=== PATIENT | female | born 1960 | race Hispanic/Latino ===

== ENCOUNTER 2018-12-12 08:01 | Day surgery (SDC) | payer OTHER ==
--- OUTSIDE RECORDS SUMMARY | 2018-12-12 08:03 | XMS REPORT ---
:1960 Author Organization [employer] Care Team Providers Name Role Phone Mota, Na Provider Role Unavailable Allergies No Known Allergies Problems Problem Type Condition Code Onset Dates Condition Status Problem Chronic obstructive pulmonary J44.9 Active disease, unspecified COPD type Problem Type 2 diabetes mellitus with E11.65 Active hyperglycemia Problem Type 2 diabetes mellitus with E11.8 Active unspecified complications Problem Uncontrolled type 2 diabetes E11.65 Active mellitus with hyperglycemia Problem Controlled type 2 diabetes mellitus E11.8 Active with complication, without long-term current use of insulin Problem Cigarette nicotine dependence with F17.219 Active nicotine-induced disorder Problem Diabetes E11.9 Active Problem Anxiety F41.9 Active Problem Allergic rhinitis J30.9 Active Problem Other chronic pain G89.29 Active Problem Sinus problem J34.9 Active Problem Asthma J45.909 Active Problem Depression F32.9 Active Medications No Known Medications Results No Known Results Summary Purpose eClinicalWorks Submission
--- OUTSIDE RECORDS SUMMARY | 2018-12-12 08:03 | XMS REPORT ---
:1960 [facility] Address [address] [place] [address] Dr. Carrillo [address] [place] [id number] Care Team Providers Name Role Phone Unavailable Unavailable Unavailable Problems This patient has no known problems. Allergies, Adverse Reactions, Alerts This patient has no known allergies or adverse reactions. Medications This patient has no known medications.
[2018-12-12] MEDS ORDERED: NA CHLORIDE 0.9% 1,000 ML ONE (08:20)
[2018-12-12] MEDS ORDERED: PROPOFOL 200 MG/20 ML VIAL IV ONE (08:45)
[2018-12-12] MEDS ORDERED: LIDOCAINE 1% MPF 5 ML VIAL ONE (08:45)
--- NOTE | 2018-12-13 01:08 | OP ---
Surgeon: Watson Lee MD Procedure Performed: Colonoscopy. Indication For Procedure: Screening, also remote history of hematochezia. Plan For Anesthesia: Monitored anesthesia care. Complexity: Average. Technique: After obtaining informed consent from the patient, explaining risks and complications whi ch include but are not limited to bleeding, infection, perforation and anesthesia complication, the p atient was placed in the left lateral position and sedation was given. From then on, a digital recta l exam was performed and then the scope inserted into the rectum and carefully guided up till the ter misty ileum. Subsequently, the scope was slowly withdrawn while carefully examining the mucosa. The quality of prep according to [place] prep score was 2 + 2 + 2, equal to 6/9. Scope withdrawal time w as 10 minutes. Findings: Few small diverticula were seen in the sigmoid. In the rectum, a diminutive sessile polyp was seen. This was removed by cold forceps. Retroflexion revealed grade 1 internal hemorrhoid. Complications: None. Tolerance To Anesthesia: Excellent. Postoperative Diagnosis: Diverticulosis, polyp. Plan: 1.Await pathology results. 2.Follow up in the GI clinic in 2 weeks. 3.High-fiber diet. 4.Repeat colonoscopy in 3-5 years based on pathology. US/MODL Voice ID: [id number] Report ID: [id number]
== END 2018-12-12 10:08 | disposition home or self-care (01) ==
LOC: OR 08:01
PROVIDERS: ATTEND Internal Medicine Gastroenterology
PROC: 0DBP8ZX Excision of Rectum, Via Natural or Artificial Opening Endoscopic, Diagnostic (ICD-10-PCS; principal; 2018-12-12 09:00)
DX: Z12.11 Encounter for screening for malignant neoplasm of colon (principal); K62.1 Rectal polyp; K57.30 Diverticulosis of large intestine without perforation or abscess without bleeding; K64.0 First degree hemorrhoids; E11.9 Type 2 diabetes mellitus without complications; F17.210 Nicotine dependence, cigarettes, uncomplicated; Z79.84 Long term (current) use of oral hypoglycemic drugs
CPT/HCPCS: 82962; 88305; J2704; J7030

== ENCOUNTER 2019-04-29 07:10 | Day surgery (SDC) | payer OTHER ==
--- OUTSIDE RECORDS SUMMARY | 2019-04-29 07:13 | XMS REPORT ---
:1960 [facility] Address [address] [place] [address] Dr. Carrillo [address] [place] [address] Care Team Providers Name Role Phone Unavailable Unavailable Unavailable Problems This patient has no known problems. Allergies, Adverse Reactions, Alerts This patient has no known allergies or adverse reactions. Medications This patient has no known medications.
--- OUTSIDE RECORDS SUMMARY | 2019-04-29 07:14 | XMS REPORT ---
:1960 Author Organization [employer] Care Team Providers Name Role Phone Mota, Na Provider Role Unavailable Allergies, Adverse Reactions, Alerts Substance Reaction Event Type N.K.D.A. Info Not Available Non Drug Allergy Problems Problem Type Condition Code Onset Dates Condition Status Problem Chronic obstructive pulmonary J44.9 Active disease, unspecified COPD type Problem Type 2 diabetes mellitus with E11.65 Active hyperglycemia Problem Type 2 diabetes mellitus with E11.8 Active unspecified complications Problem Diabetes E11.9 Active Assessment Other chronic pain G89.29 Active Problem Anxiety F41.9 Active Assessment Cigarette nicotine dependence with F17.219 Active nicotine-induced disorder Assessment Chronic obstructive pulmonary J44.9 Active disease, unspecified COPD type Problem Allergic rhinitis J30.9 Active Problem Other chronic pain G89.29 Active Problem Sinus problem J34.9 Active Problem Asthma J45.909 Active Problem Depression F32.9 Active Assessment Chest pain, unspecified type R07.9 Active Assessment Anxiety F41.9 Active Assessment Blood tests for routine general Z00.00 Active physical examination Assessment Low back pain M54.5 Active Problem Uncontrolled type 2 diabetes E11.65 Active mellitus with hyperglycemia Assessment Depression F32.9 Active Problem Controlled type 2 diabetes mellitus E11.8 Active with complication, without long-term current use of insulin Assessment Uncontrolled type 2 diabetes E11.65 Active mellitus with hyperglycemia Problem Cigarette nicotine dependence with F17.219 Active nicotine-induced disorder Medications Medication Code Code Instructions Start End Status Dosage System Date Date ProAir HFA ND [id number] 108 (90 Base) Nov 22, Active 2 puffs as MCG/ACT 2019 needed Inhalation every 6 hrs FreeStyle NDC 24669359010 - sc every 14 Nov 22, Active as directed Anthony Sensor days 2019 System FreeStyle NDC 59794107172 - SC daily Nov 22, Active as directed Anthony [place] 2019 Metformin HCl NDC 79294790345 1000 MG Orally Nov 22, Active 1 tablet Twice a day 2018 with meals Duloxetine HCl NDC 20749876394 30 MG Orally Nov 22, Active 1 capsule Once a day 2018 [facility] 80090541420 62.5 MCG/INH Nov 22, Active 1 puff Ellipta Inhalation Once 2018 a day Results No Known Results Summary Purpose eClinicalWorks Submission
[2019-04-29] MEDS ORDERED: NA CHLORIDE 0.9% 1,000 ML ONE (07:34)
[2019-04-29] MEDS ORDERED: PROPOFOL 200 MG/20 ML VIAL IV ONE ×2 (08:55→08:56)
[2019-04-29] MEDS ORDERED: LIDOCAINE 1% MPF 5 ML VIAL ONE (08:56)
--- NOTE | 2019-04-29 19:50 | OP ---
Surgeon: Watson Lee MD Procedure To Be Performed: Esophagogastroduodenoscopy. Performing Physician: Wtason Lee MD. Indication For Procedure: Dyspepsia, GERD. Plan For Anesthesia: Monitored anesthesia care. Complexity: Average. Technique: After obtaining informed consent from the patient and explaining risks and complications which include but are not limited to bleeding, infection, perforation, and anesthesia complication, p atient was placed in left lateral position and sedation was given. From then on, the scope was advan shalini to the mouth and carefully guided up until the second portion of the duodenum. After the complet ion of the procedures, the equipment and scope withdrawn and procedure terminated in a safe manner. Findings: Esophagus: No gross lesion seen in the entire esophagus. The GE junction was at 38 cm. No evidence of erosive esophagitis or hiatal hernia was seen on this exam. Stomach: Moderate amount of solid food, retained food bezoar was seen in the body and fundus. This precluded visualization of significant portion of the stomach. The antrum was well visualized though , so mild patchy erythema seen, biopsies taken. Duodenum, the bulb and second portion appeared valentina l. Complications: None. Tolerance To Anesthesia: Excellent. Postoperative Diagnoses: Gastritis, gastric retention, probably indicating gastroparesis given her d iabetes. Plan: 1.Await pathology results. 2.Oral PPI once a day. 3.Low-fiber, low residue diet, multiple frequent meals rather than large infrequent meals. 4.Gastric control of diabetes. 5.Follow up in the GI Clinic in 2 weeks. US/MODL Voice ID: [id number] Report ID: [id number]
== END 2019-04-29 09:30 | disposition home or self-care (01) ==
LOC: OR 07:10
PROVIDERS: ATTEND Internal Medicine Gastroenterology
PROC: 0DB68ZX Excision of Stomach, Via Natural or Artificial Opening Endoscopic, Diagnostic (ICD-10-PCS; principal; 2019-04-29 08:30)
DX: K29.50 Unspecified chronic gastritis without bleeding (principal); B96.81 Helicobacter pylori [H. pylori] as the cause of diseases classified elsewhere; K31.89 Other diseases of stomach and duodenum; K21.9 Gastro-esophageal reflux disease without esophagitis; E11.9 Type 2 diabetes mellitus without complications; F17.210 Nicotine dependence, cigarettes, uncomplicated; Z79.84 Long term (current) use of oral hypoglycemic drugs
CPT/HCPCS: 82962; 88305; 88312; J2704; J7030

== ENCOUNTER 2025-03-24 12:24 | Emergency (ER) | payer OTHER ==
--- OUTSIDE RECORDS SUMMARY | 2025-03-24 12:34 | XMS REPORT | Continuity of Care Document ---
Author Name Unknown Address [address] [facility] [place] [address] [facility] Address [address] [facility] [place] [address] Care Team Providers Care [employer] Design Layout Drafter Name Role Phone PCP, PATIENT DOES NOT HAVE A Primary Care Physic sherry Unavailable AMARI NORRIS Attending Clinician Unavailable AMARI NORRIS Attending Clinician Unavailable Juju Lopez Attending Clinician [phone] DEMI DE LA TORRE Attending Clinician Unavailab DEMI Matias Attending Clinician Unavailab Demi Matias DO Attending Clinician [phone] Campaigns, Generic Provider Attending Clinician Unavailable TOI CRAIG Attending Clinician Unavailable TOI CRAIG Attending Clinician Unavailable Yarima MD, [place] S Attending Clinician [phone] Florian Timmons S Attending Clinician Unavailab Lm Mccormick Attending Clinician Unavailable JEREMY RAM Attending Clinician Unavailable Emily Montgomery CNP Attending Clinician [phone] Leanna HUNTER, Jeremy Attending Clinician [phone] Shameka Montenegro RN Attending Clinician DANE Alanis Attending Clinician Unavailable DANE MONTES DE OCA Attending Clinician Unavailable Chelsea Rosario MD Attending Clinician + Victor Manuel Marquis MD Attending Clinician [phone] Dane Montes De Oca MD Attending Clinician [phone] Ramon, Generic Provider Attending Clinician Unavailable ERICA JASSO Attending Clinician Unavailable VAMSI MURPHYVIKTORIA Attending Clinician Emily vailable BOBBY PETTY Attending Clinician Unavailab BOBBY Spivey Attending Clinician Unavailab Kush Ventura Attending Clinician Emily vailable WALDEMAR LEE Attending Clinician Unavailable CARLITOS JEFFRIES Attending Clinician Unavailable Carlitos Jeffries MD Attending Clinician [phone] CARLITOS_Reagan_Asim_ Attending Clinician Unavail able Chelsea Rosario MD Attending Clinician + Cyndee Mahoney MD Attending Clinician [phone] Kelsey Storey Attending Clinician [phone] Ila MCCARTHY Attending Clinician Unavailable Ila Jimenez Attending Clinician [phone] TREY MATTHEW Attending Clinician Unavailable Trey Matthew DO Attending Clinician [phone] Doctor Unassigned, [place] Attending Clinician AMARI Jaimes Admitting Clinician Unavailable DEMI DE LA TORRE Admitting Clinician Unavailab TOI Toribio Admitting Clinician Unavailable Belen Zarate Admitting Clinician Unavailable Juju Weems Admitting Clinician Unavailab JEREMY Kendall Admitting Clinician Unavailable Jeremy Ram MD Admitting Clinician [phone] VICTOR MANUEL MARQUIS Admitting Clinician Unavailable Victor Manuel Marquis MD Admitting Clinician [phone] BOBBY PETTY Admitting Clinician Unavailab WALDEMAR Parikh Admitting Clinician Unavailable CARLITOS JEFFRIES Admitting Clinician Unavailable Carlitos Jeffries MD Admitting Clinician CARLITOS_Reagan_Asim_ Admitting Clinician Unavail able CYNDEE MAHONEY Admitting Clinician Unavailable Cyndee Mahoney MD Admitting Clinician [phone] TREY MATTHEW Admitting Clinician Unavailable Payers Payer Name Policy Type Policy Number Effective Date Expirati on Date Source [facility] [employer] [id number] 2023 00:00:00 [employer] [facility] [id number] Problems Condition Name Condition Details Condition Category Status Onset Date Resolution Date Last Treatment Date Treating Clinician Comments Source COPD (chronic obstructiv e pulmonary disease) COPD (chronic obstructiv e pulmonary disease) Disease Active 2023-11 00:00: 00 [facility] acute hospital Troponin I above reference range Troponin I above reference range Disease Active 2023-11 0 00:00: 00 [facility] acute hospital Cigarette smoker Cigarette smoker Disease Active 2023-11 00:00: 00 [facility] acute hospital Elevated brain natriureti c peptide (BNP) level Elevated brain natriureti c peptide (BNP) level Disease Active 2023-11 0- 00:00: 00 General acute hospital NSTEMI (non-ST elevated myocardial infarction ) NSTEMI (non-ST elevated myocardial infarction ) Disease Active 2023-11 0 00:00: 00 General acute hospital LEG PAIN-RIGHT LEG PAIN-RIGHT Active 04/28/2024 [facility] Diagnosis Active 04-28 00:00: 00 2024-05-19 09:51:00 Asher Hernández Chest pain, unspecifie d type Chest pain, unspecifie d type Disease Active - 00:00: 00 [facility] acute hospital Chest pain Chest pain Disease Active 07-06 00:00: 00 [facility] acute hospital MENJIVAR (dyspnea on exertion) MENJIVAR (dyspnea on exertion) Disease Active 07-06 00:00: 00 [facility] Essential hypertensi on Essential hypertensi on Disease Active 07-06 00:00: 00 [facility] Type 2 diabetes mellitus with other specified complicati on Type 2 diabetes mellitus with other specified complicati on Disease Active 07-06 00:00: 00 [facility] Dyslipidem ia Dyslipidem ia Disease Active 07-06 00:00: 00 [facility] Pain in left foot Pain in Left Foot Problem Active 05-12 00:00: 00 [facility] Neuropathy due to diabetes mellitus Neuropathy Due to Diabetes Mellitus Problem Active 05-02 00:00: 00 [facility] Peroneal tendinitis of left lower limb Peroneal Tendinitis of Left Lower Limb Problem Active 05-02 00:00: 00 [facility] Closed fracture of fifth metatarsal bone of left foot Closed Fracture of Fifth Metatarsal Bone of Left Foot Problem Active 05-02 00:00: 00 [facility] Chronic obstructiv e pulmonary disease, unspecifie d COPD type Chronic obstructiv e pulmonary disease, unspecifie d COPD type Problem Active [facility] Uncontroll ed type 2 diabetes mellitus with hyperglyce wandy Uncontroll ed type 2 diabetes mellitus with hyperglyce wandy Problem Active [facility] Controlled type 2 diabetes mellitus with complicati on, without long-term current use of insulin Controlled type 2 diabetes mellitus with complicati on, without long-term current use of insulin Problem Active [facility] Cigarette nicotine dependence with nicotine-i nduced disorder Cigarette nicotine dependence with nicotine-i nduced disorder Problem Active [facility] Diabetes Diabetes Problem Active [facility] Anxiety Anxiety Problem Active [facility] Allergic rhinitis Allergic rhinitis Problem Active [facility] Other chronic pain Other chronic pain Problem Active [facility] Sinus problem Sinus problem Problem Active [facility] Asthma Asthma Problem Active [facility] Depression Depression Problem Active [facility] Diabetic neuropathy , painful Diabetic neuropathy , painful Problem Active [facility] Mixed hyperlipid emia Mixed hyperlipid emia Problem Active [facility] Encounter for general adult medical examinatio n with abnormal findings Encounter for general adult medical examinatio n with abnormal findings Problem Active [facility] Neuropathy Neuropathy Problem Active [facility] Insomnia, unspecifie d type Insomnia, unspecifie d type Problem Active [facility] Depression with anxiety Depression with anxiety Problem Active [facility] HTN, goal below 130/80 HTN, goal below 130/80 Problem Active [facility] No known active problems No known active problems Disease General acute hospital Allergies, Adverse Reactions, Alerts Allergy Name Allergy Type Status Severity Reaction(s) Onset Date Inactive Date Treating Clinician Comments Source No Known Allergie s DA Active U 2023-11 0 00:00: 00 [facility] NO KNOWN ALLERGIE S Drug Class Active [facility] acute hospital Social History Social Habit Start Date Stop Date Quantity Comments Source History of tobacco use Cigarette Smoker [facility] Sexual orientation [facility] ASSERTION Possible [facility] Alcoholic beverage intake 2025-03-19 00:00:00 2025-03-19 00:00:00 0 /d [facility] Tobacco use and exposure 2024-12-26 00:00:00 2024-12-26 00:00:00 Smokeless tobacco non-user [facility] History of Social function 2024-12-26 00:00:00 2024-12-26 00:00:00 [facility] Education 2024-08-22 00:00:00 2024-08-22 00:00:00 7 [facility] Alcohol intake 2024-01-14 00:00:00 2024-01-14 00:00:00 0 /d [facility] Exposure to SARS-CoV-2 (event) 2022-06-25 00:00:00 2022-07-05 22:44:00 Not sure [facility] Sex assigned at 1960 00:00:00 1960 00:00:00 [facility] Smoking Status Start Date Stop Date Source Heavy Tobacco Smoker [facility] Occasional tobacco smoker 2024-12-26 00:00:00 [facility] Tobacco smoking status Librado Hernández Smokes tobacco daily 2022-07-06 00:00:00 [facility] Former smoker 2016-01-29 00:00:00 2016-01-29 00:00:00 [facility] Medications Ordered Medication Name Filled Medication Name Start Date Stop Date Current Medication? Ordering Clinician Indication Dosage Frequency Signature (SIG) Comments Components Source ketorolac (TORADOL) injection 15 mg 03-19 16:00: 00 03-19 16:05 :00 No 15mg 15 mg, Intramuscu lar, ONCE, 1 dose, On Ingrid 03/19/25 at 1100, Routine [facility] acute hospital methocarbam oL (ROBAXIN) tablet 1,000 mg 03-19 15:15: 03-19 16:04 :00 No 1000mg 1,000 mg, Oral, ONCE, 1 dose, On Ingrid 03/19/25 at 1015, ALEXIS [facility] acute hospital dexamethaso ne sod phos PF injection 10 mg 03-19 15:15: 03-19 16:05 :00 No 10mg 10 mg, Intramuscu lar, ONCE, 1 dose, On Ingrid 03/19/25 at 1015, 1 mL [facility] acute hospital hydrOXYzine 25 mg tablet 03-19 00:00: 00 03-25 04:59 :00 Yes [id number] 25mg Take 1 tablet by mouth every 6 (six) hours for 5 days. [facility] acute hospital traMADoL 50 mg tablet 03-19 00:00: 00 03-25 04:59 :00 Yes [id number] 50mg Take 1 tablet by mouth every 6 (six) hours as needed for Pain (scale 7-10) for up to 5 days. Indication s: acute pain [facility] acute hospital METFORMIN 500 mg tablet 02-16 00:00: 00 Yes [id number] TAKE 1 TABLET BY MOUTH EVERY MORNING AND TAKE 1 TABLET BY MOUTH EVERY EVENING WITH A MEAL [facility] acute hospital benzonatate (TESSALON PERLES) capsule 100 mg 02-14 20:00: 00 02-14 19:49 :00 No 100mg 100 mg, Oral, ONCE, 1 dose, On 02/14/25 at 1500, ALEXIS [facility] acute hospital magnesium sulfate in water 2 gram/50 mL (4 %) infusion 2 g 02-14 19:00: 00 02-14 19:24 :00 No 2g 2 g, IV Piggyback, Administer over 60 Minutes, ONCE, 1 dose, On 02/14/25 at 1400, Routine [facility] acute hospital aspirin chewable tablet 324 mg 02-14 18:15: 00 02-14 17:25 :00 No 324mg 324 mg, Oral, ONCE, 1 dose, On 02/14/25 at 1315, Routine [facility] acute hospital LORazepam (ATIVAN) injection 1 mg 02-14 17:30: 00 02-14 17:23 :00 No 1mg 1 mg, Slow IV Push, ONCE, 1 dose, On 02/14/25 at 1230, STAT [facility] acute hospital gabapentin 100 mg capsule 02-14 00:00: 00 03-17 04:59 :00 Yes [id number] 100mg Take 1 capsule by mouth in the morning and 1 capsule at noon and 1 capsule in the evening. Do all this for 30 days. [facility] acute hospital METFORMIN 500 mg tablet 3-19 00:00: 00 02-16 00:00 :00 No [id number] TAKE 1 TABLET BY MOUTH 2 TIMES A DAY IN THE MORNING AND IN THE EVENING WITH A MEAL [facility] acute hospital metFORMIN 500 mg tablet 2-21 00:00: 00 Yes [id number] 500mg Take 1 tablet by mouth in the morning and 1 tablet in the evening. Take with meals. [facility] acute hospital insulin glargine (LANTUS U-100) injection 7 Units 2023-11 02:00: 00 08-25 21:05 :05 No 7U 7 Units, Subcutaneo us, QHS, First dose on Sun08/25/24 at 2100, Until Discontinu ed, Routine [facility] acute hospital aspirin 81 mg EC tablet 2023-11 00:00: 00 Yes [id number] 81mg Take 1 tablet by mouth in the morning. [facility] acute hospital metoprolol succinate XL 25 mg 24 hr tablet 2023-11 00:00: 00 12-26 00:00 :00 No [id number] 25mg Take 1 tablet by mouth in the morning. [facility] acute hospital iopamidol (ISOVUE 370-500 mL) injection 70 mL 2023-11 18:50: 00 08-25 18:50 :00 No [id number] 70mL 70 mL, Intravenou s, ONCE, 1 dose, On Sun08/25/24 at 1415, Routine [facility] acute hospital NaCl 0.9% (NS) injection 5 mL 2023-11 18:40: 02 08-25 21:05 :05 No 5mL 5 mL, Slow IV Push, PRN - SEE INSTRUCTIO NS, Starting on Sun08/25/24 at 1340, Until Sun08/25/24 at 1605, 10 mL [facility] acute hospital benzonatate (TESSALON PERLES) capsule 100 mg 2023-11 15:31: 16 08-25 21:05 :05 No 100mg 100 mg, Oral, Q8HPRN, Starting on Sun08/25/24 at 1031, Until Sun08/25/24 at 1605, Routine, Cough [facility] acute hospital metoprolol succinate XL (TOPROL XL) tablet 25 mg 2023-11 14:00: 00 Yes 25mg 25 mg, Oral, DAILY, First dose (after last modificati on) on Sun08/25/24 at 0900, Until Discontinu ed, Routine [facility] acute hospital insulin lispro (human) (HumaLOG U-100) injection 3 Units 2023-11 13:00: 00 08-25 21:05 :05 No 3U 3 Units, Subcutaneo us, TID MEALS, First dose on Sun08/25/24 at 0800, Until Discontinu ed, Routine [facility] magnesium sulfate in water 2 gram/50 mL (4 %) infusion 2 g 2023-11 12:45: 00 08-25 15:16 :00 No 2g 2 g, IV Piggyback, Administer over 60 Minutes, ONCE, 1 dose, On Sun08/25/24 at 0745, Routine [facility] LORazepam (ATIVAN) injection 0.5 mg 2023-11 02:00: 00 08-25 02:10 :00 No .5mg 0.5 mg, Slow IV Push, ONCE, 1 dose, On Sun08/24/24 at 2100, ALEXIS [facility] acute hospital clonazePAM (KLONOPIN) tablet 0.5 mg 2023-11 02:00: 00 08-25 21:05 :05 No .5mg 0.5 mg, Oral, QHS, First dose (after last modificati on) on Sun08/24/24 at 2100, Until Discontinu ed, Routine [facility] acute hospital atorvastati n 40 mg tablet 2023-11 00:00: 00 12-26 00:00 :00 No [id number] 40mg Take 1 tablet by mouth at bedtime. [facility] acute hospital isosorbide mononitrate 30 mg 24 hr tablet 2023-11 00:00: 00 12-26 00:00 :00 No [id number] 30mg Take 1 tablet by mouth in the morning and 1 tablet in the evening. [facility] acute hospital clopidogreL 75 mg tablet 2023-11 00:00: 00 12-26 00:00 :00 No [id number] 75mg Take 1 tablet by mouth in the morning. [facility] acute hospital metFORMIN 500 mg tablet 2023-11 00:00: 00 12-26 00:00 :00 No [id number] 500mg Take 1 tablet by mouth in the morning and 1 tablet in the evening. Take with meals. [facility] nicotine (NICODERM) 7 mg/24 hr patch 1 Patch 2023-11 00:00: 00 08-25 21:05 :05 No 1{patch } 1 Patch, Topical, Administer over 24 Hours, Q24H, First dose on Sun08/24/24 at 1900, Until Discontinu ed, [facility]ine [facility] hydr[facility] (ATARAX) tablet 10 mg 2023-11 21:56: 13 08-25 21:05 :05 No 10mg 10 mg, Oral, Q8HPRN, Starting on 08/24/24 at 1656, Until 08/25/24 at 1605, Routine, Anxiety [facility] isosorbide mononitrate (IMDUR) 24 hr tablet 30 mg 2023-11 15:30: 00 Yes 30mg 30 mg, Oral, BID, First dose on Sun08/24/24 at 1030, Until Discontinu ed, Routine [facility] aspirin EC tablet 81 mg 2023-11 14:00: 00 Yes 81mg 81 mg, Oral, DAILY, First dose (after last modificati on) on 08/24/24 at 0900, Until Discontinu ed, Routine [facility] metoprolol succinate XL (TOPROL XL) tablet 12.5 mg 2023-11 14:00: 00 08-24 14:16 :23 No 12.5mg 12.5 mg, Oral, DAILY, First dose (after last modificati on) on Sun08/24/24 at 0900, Until Discontinu ed, Routine [facility] magnesium sulfate in water 2 gram/50 mL (4 %) infusion 2 g 2023-11 12:30: 00 08-24 16:38 :00 No 2g 2 g, IV Piggyback, Administer over 60 Minutes, ONCE, 1 dose, On 08/24/24 at 0730, Routine [facility] potassium bicarb-citr ic acid (EFFER-K) effervescen t tablet 40 mEq 2023-11 12:30: 00 08-24 13:25 :00 No 40meq 40 mEq, Oral, ONCE, 1 dose, On 08/24/24 at 0730, Routine [facility] atorvastati n (LIPITOR) tablet 40 mg 2023-11 02:00: 00 Yes 40mg 40 mg, Oral, QHS, First dose (after last modificati on) on 08/23/24 at 2100, Until Discontinu ed, Routine [facility] Sliding Scale Insulin-Reg ular 2023-11 02:00: 00 08-25 21:05 :05 No Subcutaneo us, AC+HS, First dose (after last modificati on) on 08/23/24 at 2100, Until Discontinu ed, Routine [facility] clonazePAM (KLONOPIN) tablet 0.5 mg 2023-11 01:00: 00 08-24 04:53 :20 No .5mg 0.5 mg, Oral, TID, First dose on 08/23/24 at 2000, Until Discontinu ed, Routine [facility] heparin 25,000 Units/250 mL (Premixed Bag) in 0.45 % NS 2023-11 22:57: 01 08-25 21:05 :05 No 12U/kg/ h 12 Units/kg/h r ?70.3 kg (8.436 mL/hr, rounded to 8.44 mL/hr), IV Infusion, TITRATE, Parameters in Admin. Instr., Starting on 08/23/24 at 1757, CAUTION - If LMWH given in ER, AVOID bolus and start next dose/drip 12 hrs after ER dosage. Must program rate using programmab le infusion pump. Check with the ordering provider first prior to any administra tion should the patient be on existing/a dditional anticoagul ant therapy. Range, Dosing and Testing - aPTT < 40: Bolus 3000 units, increase rate 100 units/hr. - aPTT 40-49: Increase rate 50 units/hr. - aPTT 50-70: NO CHANGE. - aPTT 71-85: Decrease rate 50 units/hr. - aPTT 86-100: Hold 30 minutes, decrease rate 100 units/hr. - aPTT 101-150: Hold 60 minutes, decrease rate 150 units/hr. - aPTT > 150: Hold 60 minutes, decrease rate 300 units/hr. Check aPTT 6 hours after initiation , then Q6H after every change, aPTT Q12H once therapeuti c levels are reached. DO NOT ADJUST INITIAL BOLUS OR INITIAL INFUSION RATE. [facility] HYDROcodone -acetaminop hen (NORCO 5) tablet 1 tablet 2023-11 22:32: 43 08-25 21:05 :05 No 1{tbl} 1 tablet, Oral, Q6HPRN, Starting on 08/23/24 at 1732, Until 08/25/24 at 1605, Routine, Pain (scale 7-10) [facility] nitroglycer in (NITROSTAT) sublingual tablet 0.4 mg 2023-11 22:31: 36 08-25 21:05 :05 No .4mg 0.4 mg, Sublingual , Q5MIN PRN, Starting on 08/23/24 at 1731, Until 08/25/24 at 1605, Routine, Chest pain [facility] heparin (1,000 unit/mL, 10 mL vial) for Rebolusing 2023-11 21:57: 01 08-25 21:05 :05 No 3000U [facility] acetaminoph en (TYLENOL) tablet 650 mg 2023-11 21:56: 50 08-25 21:05 :05 No 650mg 650 mg, Oral, Q6HPRN, Starting on 08/23/24 at 1656, Until 08/25/24 at 1605, Routine, Pain (scale 1-3) [facility] ipratropium -albuteroL (DUONEB) 0.5 mg-3 mg(2.5 mg base)/3 mL nebulizer solution 3 mL 2023-11 20:50: 00 08-23 21:42 :00 No 3mL 3 mL, Inhalation , ONCE, 1 dose, On 08/23/24 at 1600, ALEXIS [facility] insulin glargine (LANTUS U-100) injection 20 Units 2023-11 02:00: 00 08-23 00:14 :10 No 20U 20 Units, Subcutaneo us, QHS, First dose on Sun08/22/24 at 2100, Until Discontinu ed, Routine [facility] atorvastati n (LIPITOR) tablet 40 mg 2023-11 02:00: 00 08-23 00:14 :10 No 40mg 40 mg, Oral, QHS, First dose on Sun08/22/24 at 2100, Until Discontinu ed, Routine [facility] acute hospital metformin HCl (METFORMIN ORAL) 2023-11 18:58: 51 08-22 00:00 :00 No 1000mg Take 1,000 mg by mouth in the morning and 1,000 mg in the evening. [facility] acute hospital aspirin 81 mg chewable tablet 2023-11 18:58: 51 08-22 00:00 :00 No 81mg Take 1 tablet by mouth in the morning. [facility] acute hospital metoprolol succinate XL (TOPROL XL) tablet 12.5 mg 2023-11 17:15: 00 08-23 00:14 :10 No 12.5mg 12.5 mg, Oral, DAILY, First dose on Sun08/22/24 at 1215, Until Discontinu ed, Routine [facility] acute hospital aspirin EC tablet 81 mg 2023-11 17:00: 00 08-23 00:14 :10 No 81mg 81 mg, Oral, DAILY, First dose on Sun08/22/24 at 1200, Until Discontinu ed, Routine [facility] acute hospital Sliding Scale Insulin-Reg ular 2023-11 16:30: 00 08-23 00:14 :10 No Subcutaneo us, AC+HS, First dose on Sun08/22/24 at 1130, Until Discontinu ed, Routine [facility] glucagon HCL injection 1 mg 2023-11 12:46: 55 08-23 00:14 :10 No 1mg 1 mg, Intramuscu lar, PRN, Starting on Sun08/22/24 at 0746, Until Sun08/22/24 at 1914, ALEXIS, Low blood sugar, Blood Glucose < or = 70 mg/dL and patient is NPO, unable to swallow or has mental changes. [facility] acute hospital dextrose 50 % in water (D50W) injection 25 mL 2023-11 0 12:46: 55 08-23 00:14 :10 No 25mL 25 mL, Slow IV Push, PRN, Starting on Sun08/22/24 at 0746, Until Sun08/22/24 at 1914, ALEXIS, Blood Glucose < or = 70 mg/dL and patient is NPO, unable to swallow or has mental status changes. [facility] acute hospital heparin 25,000 Units/250 mL (Premixed Bag) in 0.45 % NS 2023-11 11:29: 04 08-23 00:14 :10 No 0U/h 0-2,150 Units/hr (0-21.5 mL/hr), IV Infusion, TITRATE, Parameters in Admin. Instr., Starting on Sun08/22/24 at 0629, Initiate dosing: -Patient 83 kg or under: 900 Units/hr (Calculate d dose at 12 units/kg/h r) -Patient over 83 k,000 units/hr DO NOT Exceed the MAXIMUM 1,000 units/hr for initiation of heparin drip. CAUTION - If LMWH given in ER, AVOID bolus and start next dose/drip 12 hrs after ER dosage. Must program rate using programmab le infusion pump. Check with the ordering provider first prior to any administra tion should the patient be on existing/a dditional anticoagul ant therapy. Range, Dosing and Testing: FOR [place] ONLY - aPTT < 35: Bolus 5000 units, increase rate 300 units/hr - aPTT 35-44: Bolus 3000 units, increase rate 200 units/hr - aPTT 45-54: Increase rate 100 units/hr - aPTT 55-85: NO CHANGE - aPTT 86-95: Decrease rate 100 units/hr - aPTT 96-120: Hold 30 minutes, decrease rate 150 units/hr - aPTT > 120: Hold 60 minutes, decrease rate 200 units/hr Check aPTT 6 hours after initiation , then Q6H after every change, aPTT Q12H once therapeuti c levels are reached. FOR [facility] ONLY - aPTT < 40: Bolus 5000 units, increase rate 300 units/hr - aPTT 40-49: Bolus 3000 units, increase rate 200 units/hr - aPTT 50-59: Increase rate 100 units/hr - aPTT 60-85: NO CHANGE - aPTT 86-95: Decrease rate 100 units/hr - aPTT 96-120: Hold 30 minutes, decrease rate 150 units/hr - aPTT > 120: Hold 60 minutes, decrease rate 200 units/hr Check aPTT 6 hours after initiation , then Q6H after every change, aPTT Q12H once therapeuti c levels are reached. DO NOT ADJUST INITIAL BOLUS OR INITIAL INFUSION RATE. [facility] ondansetron (ZOFRAN (PF)) injection 4 mg 2023-11 11:24: 03 08-23 00:14 :10 No 4mg [facility] morpHINE (4 mg/mL) injection 4 mg 2023-11 11:23: 56 08-22 21:09 :54 No 4mg 4 mg, Slow IV Push, Q4HPRN, Starting on Sun08/22/24 at 0623, Until Sun08/22/24 at 1609, Routine, Pain (scale 7-10), Chest pain [facility] traMADoL (ULTRAM) tablet 50 mg 2023-11 11:23: 54 08-23 00:14 :10 No 50mg General acute hospital acetaminoph en (TYLENOL) tablet 650 mg 2023-11 11:23: 52 08-23 00:14 :10 No 650mg [facility] acute hospital HEPARIN SODIUM (PORCINE) 1,000 UNIT/ML BOLUS ACS ORDER SET 2023-11 11:15: 00 08-22 11:17 :00 No 4000U 4,000 Units, IV Push, ONCE, 1 dose, On Sun08/22/24 at 0615, ALEXIS General acute hospital heparin (1,000 unit/mL, 10 mL vial) for Rebolusing 2023-11 11:05: 35 08-23 00:14 :10 No 3000U FOR REBOLUSING , Starting on Sun08/22/24 at 0605, Until Sun08/22/24 at 1914, Routine, Dosing based on aPPT testing parameters (refer to continuous heparin drip order). General acute hospital ondansetron (ZOFRAN (PF)) injection 4 mg 2023-11 10:00: 00 08-22 10:04 :00 No 4mg 4 mg, Slow IV Push, ONCE, 1 dose, On Sun08/22/24 at 0500, [facility] fentanyl PF (SUBLIMAZE (PF)) injection 25 mcg 2023-11 10:00: 00 08-22 10:04 :00 No 25ug 25 mcg, Slow IV Push, ONCE, 1 dose, On Sun08/22/24 at 0500, STAT [facility] aspirin tablet 325 mg 2023-11 10:00: 00 08-22 10:04 :00 No 325mg 325 mg, Oral, ONCE, 1 dose, On Sun08/22/24 at 0500, STAT [facility] methylPREDN ISolone 4 mg tablets 05-04 00:00: 00 08-22 00:00 :00 No [id number] Take by mouth SEE-INSTRU CTIONS. follow package directions [facility] hospital diclofenac 50 mg tablet 05-04 00:00: 00 08-22 00:00 :00 No [id number] 50mg Take 1 tablet by mouth 3 (three) times daily as needed for Pain (scale 7-10) for up to 15 doses. [facility] tizanidine 2 mg oral tablet 04-28 18:56: 00 Yes 2 mg = 1 tab, PO, Bedtime, PRN for muscle spasm, # 12 tab, 0 Refill(s) Asher Hernández Bentyl 20 mg oral tablet 04-28 18:54: 00 Yes 20 mg = 1 tab, PO, QID-Before Meals, PRN Abdominal Pain, # 20 tab, 0 Refill(s) Asher Hernández HYDROcodone -acetaminop hen (NORCO) 10-325 mg tablet 1 tablet 04-26 14:30: 00 04-26 13:46 :00 No 1{tbl} 1 tablet, Oral, ONCE NOW, 1 dose, On 04/26/24 at 0930, Routine [facility] acute hospital methocarbam oL (ROBAXIN) tablet 1,000 mg 04-26 13:45: 00 04-26 13:46 :00 No 1000mg 1,000 mg, Oral, ONCE, 1 dose, On 04/26/24 at 0845, [facility] cyclobenzap rine 5 mg tablet 04-26 00:00: 00 08-22 00:00 :00 No [id number] 5mg Take 1 tablet by mouth in the morning and 1 tablet at noon and 1 tablet in the evening. [facility] hospital acetaminoph en-codeine 300-30 mg tablet 04-26 00:00: 00 05-04 04:59 :00 No [id number] 1{tbl} Take 1 tablet by mouth every 4 (four) hours as needed for Pain (scale 4-6) for up to 7 days. Indication s: acute pain [facility] acute hospital KCL (KLOR-CON M20) tablet 40 mEq 3-11 19:30: 00 01-13 19:04 :00 No 40meq 40 mEq, Oral, ONCE, 1 dose, On Sun01/14/24 at 1430, Routine [facility] insulin regular human (HUMULIN R) injection 5 Units 01-13 19:15: 00 01-13 19:05 :00 No 5U 5 Units, Slow IV Push, ONCE, 1 dose, On Sun01/14/24 at 1415, Routine
Indicatio n for insulin: Hyperglyce wandy [facility] acute hospital ipratropium -albuteroL (DUONEB) 0.5 mg-3 mg(2.5 mg base)/3 mL nebulizer solution 3 mL 01-13 19:00: 00 01-13 18:11 :00 No 3mL 3 mL, Inhalation , ONCE, 1 dose, On Sun01/14/24 at 1400, Routine [facility] ondansetron (ZOFRAN (PF)) injection 4 mg 01-13 19:00: 00 01-13 18:08 :00 No 4mg 4 mg, Slow IV Push, ONCE, 1 dose, On Sun01/14/24 at 1400, [facility] acute hospital morpHINE (4 mg/mL) injection 4 mg 01-13 19:00: 00 01-13 18:08 :00 No 4mg 4 mg, Slow IV Push, ONCE, 1 dose, On Sun01/14/24 at 1400, [facility] NaCl 0.9% (NS) bolus infusion 1,000 mL 01-13 18:30: 00 01-13 19:58 :00 No 1000mL at 999 mL/hr, 1,000 mL, IV Piggyback, ONCE, 1 dose, On Sun01/14/24 at 1330, STAT [facility] acute [facility] aspirin tablet 325 mg 01-13 18:15: 00 01-13 18:07 :00 No 325mg 325 mg, Oral, ONCE, 1 dose, On Sun01/14/24 at 1315, STAT [facility] metFORMIN 1,000 mg tablet 01-13 00:00: 00 02-13 04:59 :00 No [id number] 1000mg Take 1 tablet by mouth in the morning and 1 tablet in the evening. Take with meals. Do all this for 30 days. [facility] acute hospital diphenhydrA MINE (BENADRYL) injection 25 mg 04-21 17:30: 00 04-21 17:51 :00 No 25mg 25 mg, Slow IV Push, ONCE, 1 dose, On 04/21/23 at 1230, STAT [facility] aspirin tablet 325 mg 04-21 17:30: 00 04-21 17:17 :00 No 325mg 325 mg, Oral, ONCE, 1 dose, On 04/21/23 at 1230, STAT [facility] lisinopriL (PRINIVIL,Z ESTRIL) tablet 5 mg 07-07 13:15: 00 Yes 5mg 5 mg, Oral, BID, First dose on Sun07/07/22 at 0815, Until Discontinu ed, Routine [facility] metFORMIN 1,000 mg tablet 07-07 10:32: 43 07-07 00:00 :00 No 1000mg Take 1,000 mg by mouth in the morning. [facility] acute hospital Sliding Scale Insulin-Reg ular + Fsbg Testing 07-07 02:00: 00 Yes Subcutaneo us, AC+HS, First dose on Sun07/06/22 at 2100, Until Discontinu ed, Routine [facility] acute hospital enoxaparin (LOVENOX) injection 40 mg 07-06 22:00: 00 Yes 40mg 40 mg, Subcutaneo us, DAILY, First dose on Sun07/06/22 at 1700, Until Discontinu ed, Routine [facility] aspirin tablet 325 mg 07-06 14:00: 00 Yes 325mg 325 mg, Oral, DAILY, First dose on Sun07/06/22 at 0900, Until Discontinu ed, Routine [facility] acute hospital Sliding Scale Insulin-Reg ular + Fsbg Testing 07-06 13:00: 00 07-06 22:52 :20 No Subcutaneo us, AC+HS, First dose (after last modificati on) on Sun07/06/22 at 0800, Until Discontinu ed, Routine [facility] glucagon (GLUCAGEN DIAGNOSTIC KIT) injection 1 mg 07-06 12:50: 00 Yes 1mg 1 mg, Intramuscu lar, PRN, Starting on Sun07/06/22 at 0750, Until Discontinu ed, ALEXIS, Blood Glucose < or = 70 mg/dL and patient is unable to swallow or has mental changes. [facility] acute hospital dextrose 50 % in water (D50W) injection 25 mL 07-06 12:50: 00 Yes 25mL 25 mL, Slow IV Push, PRN, Starting on Sun07/06/22 at 0750, Until Discontinu ed, ALEXIS, Blood Glucose < or = 70 mg/dL and patient is unable to swallow or has mental status changes. [facility] acute hospital nicotine (NICODERM) 14 mg/24 hr patch 1 Patch 07-06 12:15: 00 Yes 1{patch } 1 Patch, Topical, Administer over 24 Hours, Q24H, First dose on Sun07/06/22 at 0715, Until Discontinu ed, Routine [facility] cyclobenzap rine (FLEXERIL) tablet 10 mg 07-06 11:30: 00 07-06 13:07 :00 No 10mg 10 mg, Oral, ONCE, 1 dose, On Sun07/06/22 at 0630, Routine [facility] cyclobenzap rine (FLEXERIL) tablet 10 mg 07-06 11:13: 56 Yes 10mg 10 mg, Oral, TIDPRN, Starting on Sun07/06/22 at 0613, Until Discontinu ed, Routine, Muscle Spasms [facility] acute hospital nitroglycer in (NITROSTAT) sublingual tablet 0.4 mg 07-06 06:37: 06 Yes .4mg 0.4 mg, Sublingual , Q5MIN PRN, Starting on Sun07/06/22 at 0137, Until Discontinu ed, Routine, Chest pain [facility] acute hospital ondansetron (ZOFRAN (PF)) injection 4 mg 07-06 06:36: 59 Yes 4mg 4 mg, Slow IV Push, Q6HPRN, Starting on Ingrid 07/06/22 at 0136, Until Discontinu ed, Routine, Nausea and Vomiting (N/V) [facility] morpHINE (2 mg/mL) injection 2 mg 07-06 06:36: 49 07-06 11:01 :49 No 2mg 2 mg, Slow IV Push, Q4HPRN, Starting on Sun07/06/22 at 0136, Until Ingrid 07/06/22 at 0601, Routine, Pain (scale 7-10), Chest pain [facility] acute hospital traMADoL (ULTRAM) tablet 50 mg 07-06 06:36: 46 07-08 06:35 :46 No 50mg 50 mg, Oral, Q8HPRN, Starting on Ingrid 07/06/22 at 0136, Until 07/08/22 at 0135, Routine, Pain (scale 4-6) [facility] acetaminoph en (TYLENOL) tablet 650 mg 07-06 06:36: 41 Yes 650mg 650 mg, Oral, Q6HPRN, Starting on Sun07/06/22 at 0136, Until Discontinu ed, Routine, Pain (scale 1-3) [facility] acute hospital insulin regular human (HUMULIN R) injection 10 Units 07-06 05:30: 00 07-06 04:40 :00 No 10U 10 Units, Subcutaneo us, ONCE, 1 dose, On Sun07/06/22 at 0030, Routine
Indicatio n for insulin: Hyperglyce wandy [facility] ondansetron (ZOFRAN (PF)) injection 4 mg 07-06 04:00: 00 07-06 04:08 :00 No 4mg 4 mg, Slow IV Push, ONCE, 1 dose, On Sun07/05/22 at 2300, ALEXIS [facility] morpHINE (4 mg/mL) injection 4 mg 07-06 04:00: 00 07-06 04:08 :00 No 4mg 4 mg, Slow IV Push, ONCE, 1 dose, On Sun07/05/22 at 2300, STAT [facility] acute hospital gabapentin 100 mg capsule 04-30 00:00: 00 05-15 04:59 :00 No [id number] 100mg Take 1 capsule by mouth 3 (three) times daily for 14 days. [facility] acute hospital HYDROcodone -acetaminop hen (NORCO) 10-325 mg tablet 1 tablet 04-27 01:00: 00 04-26 23:55 :00 No 1{tbl} 1 tablet, Oral, ONCE, 1 dose, On Sun04/26/22 at 2000, Routine [facility] acute hospital naproxen sodium 550 mg tablet 04-26 00:00: 00 Yes [id number] 550mg Take 1 tablet by mouth 2 (two) times daily with meals. [facility] acute hospital methylPREDN ISolone 4 mg tablets 04-26 00:00: 00 Yes [id number] Take by mouth SEE-INSTRU CTIONS. follow package directions [facility] acute hospital HYDROcodone -acetaminop hen (NORCO) 10-325 mg tablet 04-26 00:00: 00 05-04 04:59 :00 No [id number] .5{tbl} Take 0.5-1 tablets by mouth every 6 (six) hours as needed for Pain (scale 7-10) for up to 7 days. Indication s: acute pain [facility] acute hospital methocarbam oL 500 mg tablet 04-26 00:00: 00 05-02 04:59 :00 No [id number] 500mg Take 1 tablet by mouth 3 (three) times daily for 5 days. [facility] acute hospital Lisinopril Lisinopril 2018-11 0-03 00:00: 00 Yes Tee Ortiz 1 tablet [facility] Farxiga Farxiga 2018-11 0-03 00:00: 00 11-05 00:00 :00 No Tee Ortiz 1 tablet [facility] Gabapentin Gabapentin 06-20 00:00: 00 Yes Tee Ortiz 1 capsule [facility] Rosuvastati n Calcium Rosuvastati n Calcium 06-20 00:00: 00 Yes Tee Ortiz 1 tablet [facility] NaCl 0.9% (NS) bolus infusion 1,000 mL 06-13 02:00: 00 06-13 02:29 :00 No 1000mL at 999 mL/hr, 1,000 mL, IV Infusion, ONCE, 1 dose, [facility] 06/12/19 at 2100, STAT [facility] acute hospital aspirin chewable tablet 324 mg 06-13 00:45: 00 06-12 23:58 :00 No 324mg 324 mg, Oral, ONCE, 1 dose, [facility] 06/12/19 at 1945, Routine [facility] acute hospital nitroglycer in (NITROL) 2 % ointment 0.5 Inch 06-13 00:45: 00 06-12 23:58 :00 No .5[in_u s] 0.5 Inch, Transderma l (Apply To Skin), ONCE, 1 dose, [facility] 06/12/19 at 1945, ALEXIS [facility] acute hospital nitroglycer in 0.4 mg sublingual tablet 06-12 00:00: [id number] 1 tablet under the tongue every 5 (five) minutes as needed for Chest pain. [facility] acute hospital ProAir HFA ProAir HFA 11-22 00:00: 00 Yes Tee Ortiz 2 puffs as needed [facility] FreeStyle Anthony Sensor System FreeStyle Anthony Sensor System 11-22 00:00: 00 Yes Tee Ortiz as directed [facility] FreeStyle Anthony [place] FreeStyle Anthony [place] 11-22 00:00: 00 Yes Tee Ortiz as directed [facility] Metformin HCl Metformin HCl 11-22 00:00: 00 Yes Tee Ortiz 1 tablet with meals [facility] Duloxetine HCl Duloxetine HCl 11-22 00:00: 00 Yes Tee Ortiz 1 capsule [facility] Incruse Ellipta Incruse Ellipta 11-22 00:00: 00 11-05 00:00 :00 No Tee Ortiz 1 puff [facility] azithromyci n (ZITHROMAX Z-AYSE) 250 mg tablet 11-13 00:00: 00 07-07 00:00 :00 No 250mg Take 1 tablet by mouth SEE-INSTRU CTIONS. Take 500 mg day 1, then 250 mg days 2 to 5. [facility] acute hospital benzonatate 100 mg capsule 11-13 00:00: 00 07-07 00:00 :00 No 100mg Take 1 capsule by mouth 3 (three) times daily as needed for Cough. [facility] acute hospital ibuprofen 800 mg tablet 11-13 00:00: 00 07-07 00:00 :00 No 800mg Take 1 tablet by mouth every 8 (eight) hours. [facility] acute hospital ibuprofen 800 mg tablet 03-19 00:00: 00 Yes 800mg Take 1 tablet by mouth every 6 (six) hours as needed (PAIN). [facility] acute hospital cyclobenzap rine 5 mg tablet 03-19 00:00: 00 07-07 00:00 :00 No 5mg Take 1 tablet by mouth 3 (three) times daily. [facility] acute hospital codeine-gua ifenesin (ROBITUSSIN AC) 10-100 mg/5 mL solution 01-28 00:00: 00 Yes 10mL Take 10 mL by mouth every 6 (six) hours as needed for Cough. [facility] acute hospital benzonatate (TESSALON PERLES) 100 mg capsule 01-28 00:00: 00 Yes 100mg Take 1 Cap by mouth 3 (three) times daily as needed for Cough. [facility] acute hospital acetaminoph en-codeine (TYLENOL #3) 300-30 mg tablet 11-15 00:00: 00 Yes 1{tbl} Take 1 Tab by mouth every 4 (four) hours as needed for Pain. [facility] acute hospital [facility] Aspirin Rock Aspirin No [facility] Aspirin [facility] metformin 1,000 mg tablet Take 1 tablet twice a day by oral route. metformin 1,000 mg tablet Take 1 tablet twice a day by oral route. No 1 BID metformin 1,000 mg tablet Take 1 tablet twice a day by oral route. [facility] Immunizations Ordered Immunization Name Filled Immunization Name Date Status Comments Source SARS-COV-2 COVID-19 MODERNA 12+ YRS VACCINE 2024-05-07 00:00:00 Completed [facility] SARS-COV-2 COVID-19 MODERNA 12+ YRS VACCINE 2024-01-23 00:00:00 Completed [facility] SARS-COV-2 COVID-19 MODERNA 12+ YRS VACCINE 2024-01-16 00:00:00 Completed [facility] SARS-COV-2 COVID-19 MODERNA 12+ YRS VACCINE 2024-01-14 12:47:00 Completed [facility] SARS-COV-2 COVID-19 MODERNA VACCINE 2021-02-09 00:00:00 Completed [facility] SARS-COV-2 COVID-19 MODERNA 12+ YRS VACCINE 2021-02-09 00:00:00 Completed [facility] SARS-COV-2 COVID-19 MODERNA 12+ YRS VACCINE 2021-02-09 00:00:00 Completed [facility] SARS-COV-2 COVID-19 MODERNA 12+ YRS VACCINE 2021-02-09 00:00:00 Completed [facility] SARS-COV-2 COVID-19 MODERNA VACCINE 2021-02-09 00:00:00 Completed [facility] SARS-COV-2 COVID-19 MODERNA VACCINE 2021-02-09 00:00:00 Completed [facility] SARS-COV-2 COVID-19 MODERNA VACCINE 2021-01-12 00:00:00 Completed [facility] SARS-COV-2 COVID-19 MODERNA 12+ YRS VACCINE 2021-01-12 00:00:00 Completed [facility] SARS-COV-2 COVID-19 MODERNA 12+ YRS VACCINE 2021-01-12 00:00:00 Completed [facility] SARS-COV-2 COVID-19 MODERNA VACCINE 2021-01-12 00:00:00 Completed [facility] SARS-COV-2 COVID-19 MODERNA VACCINE 2021-01-12 00:00:00 Completed [facility] Vital Signs Vital Name Observation Time Observation Value Comments S ource Systolic blood pressure 2025-03-19 14:13:00 162 mm[Hg] [facility] Diastolic blood pressure 2025-03-19 14:13:00 88 mm[Hg] [facility] Heart rate 2025-03-19 14:13:00 104 /min [facility] Body temperature 2025-03-19 14:13:00 36.39 Gabriella [facility] Respiratory rate 2025-03-19 14:13:00 20 /min [facility] Body height 2025-03-19 14:13:00 165.1 cm [facility] Body weight 2025-03-19 14:13:00 67.314 kg [facility] BMI 2025-03-19 14:13:00 24.70 kg/m2 [facility] Oxygen saturation in Arterial blood by Pulse oximetry 2025-03-19 14:13:00 98 /min [facility] Systolic blood pressure 2025-02-14 19:30:00 122 mm[Hg] [facility] Diastolic blood pressure 2025-02-14 19:30:00 72 mm[Hg] [facility] Heart rate 2025-02-14 19:30:00 97 /min [facility] Body temperature 2025-02-14 19:30:00 36.28 Gabriella [facility] Respiratory rate 2025-02-14 19:30:00 17 /min [facility] Oxygen saturation in Arterial blood by Pulse oximetry 2025-02-14 19:30:00 96 /min [facility] Body height 2025-02-14 17:08:00 165.1 cm [facility] Body weight 2025-02-14 17:08:00 77.111 kg [facility] BMI 2025-02-14 17:08:00 28.29 kg/m2 [facility] Systolic blood pressure 2024-12-26 17:14:00 155 mm[Hg] [facility] Diastolic blood pressure 2024-12-26 17:14:00 87 mm[Hg] [facility] Heart rate 2024-12-26 17:13:00 94 /min [facility] Body temperature 2024-12-26 17:13:00 36.56 Gabriella [facility] Body weight 2024-12-26 17:13:00 68.947 kg [facility] BMI 2024-12-26 17:13:00 25.29 kg/m2 [facility] Systolic blood pressure 2024-09-26 12:00:02 162 mm[Hg] [facility] Diastolic blood pressure 2024-09-26 12:00:02 76 mm[Hg] [facility] Heart rate 2024-09-26 12:00:02 76 /min [facility] Body temperature 2024-09-26 12:00:02 36.78 Gabriella [facility] Respiratory rate 2024-09-26 12:00:02 18 /min [facility] Oxygen saturation in Arterial blood by Pulse oximetry 2024-09-26 12:00:02 98 /min [facility] Body height 2024-09-26 09:50:00 165.1 cm [facility] Body weight 2024-09-26 09:50:00 77.111 kg [facility] BMI 2024-09-26 09:50:00 28.29 kg/m2 [facility] Body temperature 2024-08-25 18:36:00 36 Gabriella [facility] Systolic blood pressure 2024-08-25 18:35:00 118 mm[Hg] [facility] Diastolic blood pressure 2024-08-25 18:35:00 63 mm[Hg] [facility] Heart rate 2024-08-25 18:35:00 68 /min [facility] Respiratory rate 2024-08-25 18:35:00 18 /min [facility] Oxygen saturation in Arterial blood by Pulse oximetry 2024-08-25 18:35:00 97 /min [facility] Body height 2024-08-24 00:41:00 165.1 cm [facility] Body weight 2024-08-24 00:41:00 70 kg [facility] BMI 2024-08-24 00:41:00 25.68 kg/m2 [facility] Systolic blood pressure 2024-08-22 19:43:00 119 mm[Hg] [facility] Diastolic blood pressure 2024-08-22 19:43:00 71 mm[Hg] [facility] Heart rate 2024-08-22 19:43:00 85 /min [facility] Body temperature 2024-08-22 19:43:00 36.28 Gabriella [facility] Respiratory rate 2024-08-22 19:43:00 16 /min [facility] Oxygen saturation in Arterial blood by Pulse oximetry 2024-08-22 19:43:00 93 /min [facility] Body height 2024-08-22 15:36:00 165.1 cm [facility] Body weight 2024-08-22 15:36:00 69.5 kg [facility] BMI 2024-08-22 15:36:00 25.50 kg/m2 [facility] Systolic blood pressure 2024-05-04 20:13:00 160 mm[Hg] [facility] Diastolic blood pressure 2024-05-04 20:13:00 96 mm[Hg] [facility] Heart rate 2024-05-04 20:13:00 95 /min [facility] Body temperature 2024-05-04 20:13:00 37 Gabriella [facility] Respiratory rate 2024-05-04 20:13:00 18 /min [facility] Body height 2024-05-04 20:13:00 165.1 cm [facility] Body weight 2024-05-04 20:13:00 77.111 kg [facility] BMI 2024-05-04 20:13:00 28.29 kg/m2 [facility] Oxygen saturation in Arterial blood by Pulse oximetry 2024-05-04 20:13:00 98 /min [facility] Systolic blood pressure 2024-04-26 16:00:00 168 mm[Hg] [facility] Diastolic blood pressure 2024-04-26 16:00:00 81 mm[Hg] [facility] Heart rate 2024-04-26 16:00:00 78 /min [facility] 2024-04-26 16:00:00 16 /min [facility] Oxygen saturation in Arterial blood by Pulse oximetry 2024-04-26 16:00:00 95 /min [facility] Body temperature 2024-04-26 13:18:00 37 Gabriella [facility] Body height 2024-04-26 13:18:00 165.1 cm [facility] Body weight 2024-04-26 13:18:00 77.111 kg [facility] BMI 2024-04-26 13:18:00 28.29 kg/m2 [facility] Systolic blood pressure 2024-01-14 20:00:00 132 mm[Hg] [facility] Diastolic blood pressure 2024-01-14 20:00:00 54 mm[Hg] [facility] Heart rate 2024-01-14 20:00:00 97 /min [facility] Respiratory rate 2024-01-14 20:00:00 18 /min [facility] Oxygen saturation in Arterial blood by Pulse oximetry 2024-01-14 20:00:00 93 /min [facility] Body temperature 2024-01-14 17:46:00 37 Gabriella [facility] Body height 2024-01-14 17:46:00 165.1 cm [facility] Body weight 2024-01-14 17:46:00 77.111 kg [facility] BMI 2024-01-14 17:46:00 28.29 kg/m2 [facility] Systolic blood pressure 2023-04-21 19:20:00 117 mm[Hg] [facility] Diastolic blood pressure 2023-04-21 19:20:00 53 mm[Hg] [facility] Heart rate 2023-04-21 19:20:00 82 /min [facility] Body temperature 2023-04-21 19:20:00 36.72 Gabriella [facility] Respiratory rate 2023-04-21 19:20:00 18 /min [facility] Oxygen saturation in Arterial blood by Pulse oximetry 2023-04-21 19:20:00 95 /min [facility] Body height 2023-04-21 17:00:00 165.1 cm [facility] Body weight 2023-04-21 17:00:00 74.844 kg [facility] BMI 2023-04-21 17:00:00 27.46 kg/m2 [facility] Systolic blood pressure 2022-07-07 04:16:00 145 mm[Hg] [facility] Diastolic blood pressure 2022-07-07 04:16:00 85 mm[Hg] [facility] Heart rate 2022-07-07 04:16:00 77 /min [facility] Body temperature 2022-07-07 04:16:00 35.94 Gabriella [facility] Oxygen saturation in Arterial blood by Pulse oximetry 2022-07-07 04:16:00 96 /min [facility] Respiratory rate 2022-07-06 21:09:00 18 /min [facility] Body height 2022-07-06 06:21:00 165.1 cm [facility] Body weight 2022-07-06 06:21:00 73.982 kg [facility] BMI 2022-07-06 06:21:00 27.14 kg/m2 [facility] Height 2022-05-23 00:00:00 64 [in_i] [facility] BMI (Body Mass Index) 2022-05-23 00:00:00 27.6 kg/m2 [facility] Body Weight 2022-05-23 00:00:00 161 [lb_av] [facility] Height 2022-05-02 00:00:00 64 [in_i] [facility] BMI (Body Mass Index) 2022-05-02 00:00:00 27.6 kg/m2 [facility] Body Weight 2022-05-02 00:00:00 161 [lb_av] [facility] Body temperature 2022-05-01 00:00:00 36.94 Gabriella [facility] Systolic blood pressure 2022-04-30 23:59:00 167 mm[Hg] [facility] Diastolic blood pressure 2022-04-30 23:59:00 86 mm[Hg] [facility] Heart rate 2022-04-30 23:59:00 93 /min [facility] Respiratory rate 2022-04-30 23:59:00 18 /min [facility] Body height 2022-04-30 23:59:00 162.6 cm [facility] Body weight 2022-04-30 23:59:00 73.029 kg [facility] BMI 2022-04-30 23:59:00 27.64 kg/m2 [facility] Oxygen saturation in Arterial blood by Pulse oximetry 2022-04-30 23:59:00 97 /min [facility] Body weight 2022-04-26 23:24:00 73.256 kg [facility] BMI 2022-04-26 23:24:00 26.88 kg/m2 [facility] Body temperature 2022-04-26 23:23:00 36.17 Gabriella [facility] Respiratory rate 2022-04-26 23:23:00 18 /min [facility] Oxygen saturation in Arterial blood by Pulse oximetry 2022-04-26 23:23:00 98 /min [facility] Systolic blood pressure 2022-04-26 23:23:00 166 mm[Hg] [facility] Diastolic blood pressure 2022-04-26 23:23:00 91 mm[Hg] [facility] Heart rate 2022-04-26 23:23:00 96 /min [facility] Systolic blood pressure 2019-06-13 02:30:14 126 mm[Hg] [facility] Diastolic blood pressure 2019-06-13 02:30:14 86 mm[Hg] [facility]le[facility]an o [facility] Heart rate 2019-06-13 02:30:14 77 /min [facility] Body temperature 2019-06-13 02:30:14 36.56 Gabriella [facility] Respiratory rate 2019-06-13 02:30:14 15 /min [facility] Oxygen saturation in Arterial blood by Pulse oximetry 2019-06-13 02:30:14 97 /min [facility] Body height 2019-06-12 23:31:00 165.1 cm [facility] Body weight 2019-06-12 23:31:00 72.576 kg [facility] BMI 2019-06-12 23:31:00 26.63 kg/m2 [facility] Temperature Oral (F) 2024-04-28 18:08:00 97.9 F [facility] Heart Rate 2024-04-28 18:08:00 [facility] Systolic (mm Hg) 2024-04-28 18:08:00 [facility] Diastolic (mm Hg) 2024-04-28 18:[facility] 2024-04-28 15:38:00 5 [ft_i] [facility] BMI Calculated 2024-04-28 15:38:00 [facility] Weight 2024-04-28 15:38:00 [facility] Procedures Procedure Date / Time Performed Performing Clinician Source XR LUMBAR SPINE 2 VW 2025-03-19 15:17:00 Amari Norris [facility] XR HIPS 2 VW RIGHT 2025-03-19 15:17:00 Amari Norris [facility] POCT GLUCOSE (AUTOMATED) 2025-03-19 14:17:00 Brianne Norris [facility] EKG-12 LEAD 2025-02-14 19:57:55 [facility]ST [facility]W 2025-02-14 17:30:30 Demi De La Torre U [facility] MAGNESIUM 2025-02-14 17:22:00 Demi De La Torre [facility] TROPONIN I 2025-02-14 17:22:00 Demi De La Torre Un [facility] COMP. METABOLIC PANEL ([id number]) 2025-02-14 17:22:00 Demi De La Torre [facility] CBC WITH DIFF 2025-02-14 17:22:00 Demi De La Torre U [facility] HB ECG ROUTINE & RHYTHM STRIP 2024-12-26 18:16:20 Juju Weems [facility] TROPONIN I 2024-09-26 10:27:00 Toi Craig [facility] COMP. METABOLIC PANEL ([id number]) 2024-09-26 10:27:00 Toi Craig [facility] CBC WITH DIFF 2024-09-26 10:27:00 Toi Craig [facility] CT STROKE ANGIOGRAM HEAD 2024-08-25 19:01:17 Areli Bishop Lionel [facility] CT STROKE ANGIOGRAM NECK 2024-08-25 19:01:17 Areli Bishop Lionel [facility] CT STROKE HEAD WO CONTRAST 2024-08-25 19:00:15 Areli Bishop Lionel [facility] POCT GLUCOSE (AUTOMATED) 2024-08-25 17:10:00 [facility] POCT GLUCOSE (AUTOMATED) 2024-08-25 13:39:00 [facility] MAGNESIUM 2024-08-25 10:28:00 [facility] BASIC METABOLIC PANEL (NA, K, CL, CO2, GLUCOSE, BUN, CREATININE, CA) 2024-08-25 10:28:00 Ruchi [facility] CBC WITH DIFF 2024-08-25 10:28:00 [facility]IV[facility] PARTIAL THRMPLAS NOE 2024-08-25 10:28:00 Steve Hernández [facility] ACTIVATED PARTIAL THRMPLAS NOE 2024-08-25 03:40:[address] [facility] POCT GLUCOSE (AUTOMATED) 2024-08-24 21:33:00 Jeremy Ram [facility] ACTIVATED PARTIAL THRMPLAS NOE 2024-08-24 20:09:00 Steve Hernández [facility] POCT GLUCOSE (AUTOMATED) 2024-08-24 17:20:00 Jeremy Ram [facility] POCT GLUCOSE (AUTOMATED) 2024-08-24 13:49:00 Leanna janis [facility] ACTIVATED PARTIAL THRMPLAS NOE 2024-08-24 13:10:00 Steve Hernández [facility] MAGNESIUM 2024-08-24 10:12:00 Areli [facility] BASIC METABOLIC PANEL (NA, K, CL, CO2, GLUCOSE, BUN, CREATININE, CA) 2024-08-24 10:12:00 Areli Bishop [facility] CBC WITH DIFF 2024-08-24 10:12:00 Areli Bishop [facility] PROTHROMBIN TIME / INR 2024-08-24 05:05:00 Steve Thayer [facility] ACTIVATED PARTIAL THRMPLAS NOE 2024-08-24 05:05:00 Steve Hernández [facility] POCT GLUCOSE (AUTOMATED) 2024-08-24 00:58:00 [facility] TROPONIN I 2024-08-23 20:47:00 Emily Montgomery [facility] COMP. METABOLIC PANEL ([id number]) 2024-08-23 20:47:00 Stanford Montgomerysie [facility] CBC WITH DIFF 2024-08-23 20:47:00 Emily Montgomery [facility] PROTHROMBIN TIME / INR 2024-08-23 20:47:00 Ila Montgomery [facility] ACTIVATED PARTIAL THRMPLAS NOE 2024-08-23 20:47:00 Emily Montgomery [facility] EXTRA TUBE DK. GREEN 2024-08-23 20:47:00 Ulises [facility] POCT GLUCOSE (AUTOMATED) 2024-08-22 21:12:00 Dane Montes De Oca [facility] POCT GLUCOSE (AUTOMATED) 2024-08-22 20:18:00 Dane Montes De Oca [facility] GLYCOSYLATED HEMOGLOBIN (A1C) 2024-08-22 17:36:00 Tracie [facility] TROPONIN I 2024-08-22 17:35:00 [facility]IVATED PARTIAL THRMPLAS NOE 2024-08-22 17:35:00 Chelsea Rosario [facility] POCT GLUCOSE (AUTOMATED) 2024-08-22 16:27:00 Jin Marquis [facility] TRANSTHORACIC ECHO (TTE) COMPLETE 2024-08-22 14:10:00 Tracie [facility] POCT GLUCOSE (AUTOMATED) 2024-08-22 12:42:00 Jin Marquis [facility] PROTHROMBIN TIME / INR 2024-08-22 11:17:00 Chelsea Singh [facility] ACTIVATED PARTIAL THRMPLAS NOE 2024-08-22 11:17:00 Chelsea Rosario [facility] TROPONIN I 2024-08-22 10:10:00 Chelsea Rosario [facility] THYROID STIMULATING HORMONE 2024-08-22 10:10:00 [facility] LIPID PANEL ([id number])(TOTAL CHOLESTEROL, TRIGLYCERIDES, HDL) 2024-08-22 10:10:00 Victor Manuel Marquis [facility] XR CHEST 2 VW 2024-08-22 08:53:43 Chelsea Rosario [facility] TROPONIN I 2024-08-22 08:08:00 Chelsea Rosario [facility] COMP. METABOLIC PANEL ([id number]) 2024-08-22 08:08:00 Chelsea Rosario [facility] CBC WITH DIFF 2024-08-22 08:08:00 Chelsea Rosario [facility] GLYCOSYLATED HEMOGLOBIN (A1C) 2024-08-22 08:08:00 Victor Manuel Marquis [facility] N-TERMINAL PRO-BNP 2024-08-22 08:08:00 Chelsea Barber [facility] HB ECG ROUTINE & RHYTHM STRIP 2024-08-22 07:59:55 Chelsea Rosario [facility] XR LUMBAR SPINE 2 VW 2024-04-26 14:34:00 Matthew Petty [facility] XR HIPS 2 VW RIGHT 2024-04-26 14:34:00 Irina Petty [facility] EKG-12 LEAD 2024-01-14 20:39:58 Jesus [facility] TROPONIN I 2024-01-14 19:58:00 Jesus [facility] POCT GLUCOSE (AUTOMATED) 2024-01-14 19:56:00 Y[facility]min [facility] XR CHEST 1 VW 2024-01-14 18:45:24 Waldemar Lee [facility] TROPONIN I 2024-01-14 18:01:00 Waldemar Lee [facility] COMP. METABOLIC PANEL ([id number]) 2024-01-14 18:01:00 Waldemar Lee [facility] CBC WITH DIFF 2024-01-14 18:01:00 Waldemar Lee [facility] acute hospital PROTHROMBIN TIME / INR 2024-01-14 18:01:00 Xena Lee [facility] D-DIMER 2024-01-14 18:01:00 Waldemar Lee [facility] ACTIVATED PARTIAL THRMPLAS NOE 2024-01-14 18:01:00 Jesus [facility] N-TERMINAL PRO-BNP 2024-01-14 18:01:00 [facility]/REFUSAL FOR DIAGNOSIS AND TREATMENT 2024-01-14 17:47:44 Doctor Unassigned, [place] [facility] EKG-12 LEAD 2023-04-21 18:19:04 Waldemar Lee [facility] XR CHEST 1 VW 2023-04-21 18:00:30 Waldemar Lee [facility] acute hospital TROPONIN I 2023-04-21 17:16:00 Waldemar Lee [facility] COMP. METABOLIC PANEL ([id number]) 2023-04-21 17:16:00 Waldemar Lee [facility] CBC WITH DIFF 2023-04-21 17:16:00 Waldemar Lee [facility] acute hospital N-TERMINAL PRO-BNP 2023-04-21 17:16:00 [facility]REFUS[facility] FOR [facility]AGNOSIS AND TREATMENT 2023-04-21 17:03:01 Doctor Unassigned, [place] [facility] POCT GLUCOSE (AUTOMATED) 2022-07-07 01:14:00 Bashir Craig [facility] POCT GLUCOSE (AUTOMATED) 2022-07-06 21:31:00 Bashir Craig [facility] POCT GLUCOSE (AUTOMATED) 2022-07-06 16:46:00 Bashir Craig [facility] TRANSTHORACIC ECHO (TTE) COMPLETE 2022-07-06 16:45:00 Vania Casey K.HNeelam [facility] TROPONIN I 2022-07-06 15:20:00 Cyndee Mahoney [facility] LIPID PANEL ([id number])(TOTAL CHOLESTEROL, TRIGLYCERIDES, HDL) 2022-07-06 15:20:00 Jacinto Senderinn K.HNeelam [facility] LOW-DENSITY LIPOPROTEIN, DIRECT 2022-07-06 15:20:00 Vania Casey K.HNeelam [facility] POCT GLUCOSE (AUTOMATED) 2022-07-06 12:40:00 Bashir Craig [facility] TROPONIN I 2022-07-06 09:43:00 Tracie [facility] POCT GLUCOSE (AUTOMATED) 2022-07-06 06:08:00 Chelsea Sauer [facility] D-DIMER 2022-07-06 04:27:00 Chelsea Rosario [facility] COVID-19 (ID NOW RAPID TESTING) 2022-07-06 04:27:00 Chelsea Rosario [facility] XR CHEST 1 VW 2022-07-06 04:19:31 Chelsea Rosario [facility] TROPONIN I 2022-07-06 03:49:00 Chelsea Rosario [facility] COMP. METABOLIC PANEL ([id number]) 2022-07-06 03:49:00 Chelsea Rosario [facility] CBC WITH DIFF 2022-07-06 03:49:00 Chelsea Rosario [facility] GLYCOSYLATED HEMOGLOBIN (A1C) 2022-07-06 03:49:00 Chauncey Mendoza [facility] N-TERMINAL PRO-BNP 2022-07-06 03:49:00 Chelsea Barber [facility] HB ECG ROUTINE & RHYTHM STRIP 2022-07-06 03:44:38 Chelsea Rosario [facility] CONSENT/REFUSAL FOR DIAGNOSIS AND TREATMENT 2022-07-06 03:39:25 Doctor Unassigned, [place] [facility] XR, foot, 2 view 2022-05-23 00:00:00 Cuauhtemoc [facility] XR, foot, 3 or more view 2022-05-02 00:00:00 [facility] NOTICE OF PRIVACY PRACTICES 2022-05-01 00:01:42 Doctor Unassigned, [place] [facility] CONSENT/REFUSAL FOR DIAGNOSIS AND TREATMENT 2022-05-01 00:01:18 Doctor Unassigned, [place] [facility] GA APPLY LOWER LEG SPLINT 2022-04-26 23:50:40 Trey Matthew [facility] GA CLOSED RX METATARSAL FX 2022-04-26 23:50:40 Trey Matthew [facility] NOTICE OF PRIVACY PRACTICES 2022-04-26 23:19:10 Doctor Unassigned, [place] [facility] CONSENT/REFUSAL FOR DIAGNOSIS AND TREATMENT 2022-04-26 23:18:22 Doctor Unassigned, [place] [facility] TROPONIN I 2019-06-13 01:58:00 Ila Mccarthy [facility] URINALYSIS 2019-06-13 00:01:00 [facility] 2019-06-12 23:57:00 Ila Mccarthy [facility] TROPONIN I 2019-06-12 23:57:00 Ila Mccarthy [facility] COMP. METABOLIC PANEL ([id number]) 2019-06-12 23:57:00 Ila Mccarthy [facility] CBC WITH DIFFERENTIAL 2019-06-12 23:57:00 Ila Mccarthy [facility] XR CHEST 2 VW 2019-06-12 23:54:48 [facility] LE[facility] 2019-06-12 23:37:00 Ila Mccarthy [facility] CONSENT/REFUSAL FOR DIAGNOSIS AND TREATMENT 2019-06-12 23:24:04 Doctor Unassigned, [place] [facility] Tonsillectomy [facility] Plan of Care Planned Activity Planned Date Details Comments Source Instructions [facility] Encounters Start Date/Time End Date/Time Encounter Type Admission Type Attending Clinicians Care Facility Care Department Encounter ID Source 2025-03-19 09:18:00 2025-03-19 11:36:00 Emergency AMARI GALICIA JOSHUA [facility] [id number] General acute hospital 2025-02-16 00:00:00 2025-02-16 07:36:57 Refill Juju Weems [facility] 1.2.840.114 350.1.13.10 4.2.7.2.686 [id number] General acute hospital 2025-02-14 12:05:00 2025-02-14 15:04:00 Emergency DEMI STRATTON SANDRA [facility] E[facility] [id number] General acute hospital 2025-02-14 12:05:00 2025-02-14 15:04:00 Emergency Demi De La Torre [facility] AT [facility] 1.2.840.114 350.1.13.10 4.2.7.2.686 [id number] General acute hospital 2024-12-26 11:30:00 2024-12-26 12:26:54 Office Visit Juju Weems [facility] 1.2.840.114 350.1.13.10 4.2.7.2.686 [id number] General acute hospital 2024-10-23 00:00:00 2024-10-23 10:41:01 Letter (Out) Campaigns, Generic Provider Campaigns, Generic Provider [facility] 1.2.840.114 350.1.13.10 4.2.7.2.686 [id number] General acute hospital 2024-10-08 00:00:00 2024-10-08 10:53:00 Letter (Out) Campaigns, Generic Provider Campaigns, Generic Provider [facility] 1.2.840.114 350.1.13.10 4.2.7.2.686 [id number] General acute hospital 2024-09-26 03:45:00 2024-09-26 06:05:00 Emergency X TOI CRAIG WAKILI [facility] [id number] General acute hospital 2024-09-26 03:45:00 2024-09-26 06:05:00 Emergency Toi Craig S [facility] 1.2.840.114 350.1.13.10 4.2.7.2.686 [id number] General acute hospital 2024-08-28 13:38:00 2024-08-29 15:01:00 Inpatient EM Florian Timmons [facility]01 [id number] [facility] 2024-08-28 09:53:00 2024-08-28 12:12:00 Emergency EM Lm Bonilla [facility] [id number] [facility] 2024-08-23 15:28:00 2024-08-25 16:04:00 Inpatient X JEREMY RAM [facility] [id number] General acute hospital 2024-08-23 15:28:00 2024-08-25 16:04:00 Hospital Encounter [facility] 1.2840.114 350.1.13.10 4.2.7.2.686 [id number] General acute hospital 2024-08-23 00:00:00 2024-08-25 09:52:15 Transition of Care Shameka Montenegro Laura K [facility] 1.20.114 350.1.13.10 4.2.7.2.686 [id number] General acute hospital 2024-08-22 02:57:00 2024-08-22 19:13:00 Inpatient X DANE MONTES DE OCA AMER [facility] [id number] General acute hospital 2024-08-22 02:57:00 2024-08-22 19:13:00 Hospital Encounter Chelsea Rosario Jelani Abdulla, Amer [facility] ([place] 1.2.114 350.1.13.10 4.2.7.2.686 [id number] General acute hospital 2024-05-07 00:00:00 2024-05-07 10:56:01 Letter (Out) Campaigns, Generic Provider [facility] 1.2.114 350.1.13.10 4.2.7.2.686 [id number] General acute hospital 2024-05-04 15:16:00 2024-05-04 16:15:00 Emergency X ERICA JASSO [facility] [id number] General acute hospital 2024-05-04 15:16:00 2024-05-04 16:15:00 Emergency Erica Jasso [facility] 1.2840.114 350.1.13.10 4.2.7.2.686 [id number] General acute hospital 2024-04-28 10:35:00 2024-04-28 14:15:[address] [facility] [id number] [facility] 2024-04-26 08:22:00 2024-04-26 11:10:00 Emergency X BOBBY PETTY BOBBY [facility] [id number] General acute hospital 2024-04-26 08:22:00 2024-04-26 11:10:00 Emergency Kamari [facility] ([facility]) 1.840.114 350.1.13.10 4.2.7.2.686 [id number] General acute hospital 2024-01-23 00:00:00 2024-01-23 00:00:00 Letter (Out) Ramon, Generic Provider [facility] 1.2840.114 350.1.13.10 4.2.7.2.686 [id number] General acute hospital 2024-01-16 00:00:00 2024-01-16 00:00:00 Letter (Out) Kush Garcia - [facility] MEDICAL OFFICE BUILDING 1.284.114 350.1.13.10 4.2.7.2.686 [id number] General acute hospital 2024-01-14 12:47:00 2024-01-14 15:45:00 Emergency X JESUS BLAYNE [facility] [id number] General acute hospital 2024-01-14 12:47:00 2024-01-14 15:45:00 Emergency Waldemar Lee [facility] ([facility]) 1.284.114 350.1.13.10 4.2.7.2.686 [id number] General acute hospital 2023-04-21 12:05:00 2023-04-21 14:36:00 [id number] acute hospital 2023-04-21 12:05:00 2023-04-21 14:36:00 Emergency Waldemar Lee [facility] ([facility]) 1.840.114 350.1.13.10 4.2.7.2.686 [id number] General acute hospital 2022-09-17 00:00:00 2022-09-17 00:00:00 Outpatient FOG_Loncari ch_Dav_MD AOSM AOSM [id number] [facility] 2022-08-13 00:00:00 2022-08-13 00:00:00 Outpatient FOG_Loncari ch_Dav_MD AOSM AOSM [id number] [facility] 2022-07-17 00:00:00 2022-07-17 00:00:00 Outpatient FOG_Loncari ch_Dav_MD AOSM AOSM [id number] [facility] 2022-07-09 00:00:00 2022-07-09 00:00:00 Outpatient FOG_Loncari ch_Dav_MD AOSM AOSM [id number] [facility] 2022-07-05 22:42:00 2022-07-07 08:20:00 Outpatient X TOI CRAIG [facility] RE[facility] [id number] General acute hospital 2022-07-05 22:42:00 2022-07-07 08:20:00 Emergency Chelsea Rosario Wakili S [facility] 1..840.114 350.1.13.10 4.2.7.2.686 [id number] General acute hospital 2022-06-04 00:00:00 2022-06-04 00:00:00 Outpatient FOG_Loncari Dot AOSM AOSM [id number] [facility] 2022-05-23 11:56:00 2022-05-23 11:56:00 Outpatient FOG_Loncari Dot AOSM AOSM [id number] [facility] 2022-05-23 00:00:00 2022-05-23 00:00:00 Outpatient Kelsey Storey AOSM AOSM [id number] 2022-05-23 00:00:00 2022-05-23 00:00:00 Kelsey Storey MD: [address] [place] [phone] , Ph. [phone] [facility] [place] [facility] [place] [facility] [place] [id number] [facility] 2022-05-03 11:45:00 2022-05-03 11:45:00 Outpatient FOG_Loncari Dot AOSM AOSM [id number] [facility] 2022-05-02 10:59:00 2022-05-02 10:59:00 Outpatient FOG_Loncari Dot AOSM AOSM [id number] [facility] 2022-05-02 00:00:00 2022-05-02 00:00:00 Kelsey Storey MD: [address] [place] [phone] , Ph. [phone] [facility] [place] [facility] [place] [facility] [place] [id number] [facility] 2022-05-02 00:00:00 2022-05-02 00:00:00 Outpatient Kelsey Storey AOSM AOSM [id number] 2022-04-30 19:07:00 2022-04-30 19:44:00 Emergency X Ila MCCARTHY [facility] E[facility] [id number] General acute hospital 2022-04-30 19:07:00 2022-04-30 19:44:00 Emergency Ila Mccarthy [facility] 1.840.114 350.1.13.10 4.2.7.2.686 [id number] General acute hospital 2022-04-28 03:02:00 2022-04-28 03:02:00 Outpatient FOG_Loncari Dot AO AO [id number] [facility] 2022-04-28 03:02:00 2022-04-28 03:02:00 Outpatient FOG_Loncari Dot AOSM AOSM [id number] [facility] 2022-04-26 18:25:00 2022-04-26 19:37:00 Emergency X TREY MATTHEW [facility] E[facility] [id number] General acute hospital 2022-04-26 18:25:00 2022-04-26 19:37:00 Emergency Trey Matthew [facility] 1.840.114 350.1.13.10 4.2.7.2.686 [id number] General acute hospital 2022-04-26 00:00:00 2022-04-26 00:00:00 Orders Only Doctor Unassigned, [place] [facility] 1.840.114 350.1.13.10 4.2.7.2.686 [id number] General acute hospital 2020-07-08 10:33:00 2020-07-08 10:33:00 Outpatient [facility] [facility] [id number] [facility] 2020-07-07 15:47:00 2020-07-07 15:47:00 [facility] [id number] [facility] 2019-08-07 08:15:00 2019-08-07 08:15:00 Outpatient [facility] [id number] [facility] 2019-06-19 14:40:00 2019-06-19 14:40:00 Out[facility] [id number] [facility] 2019-06-12 18:27:41 2019-06-12 21:54:00 Emergency Ila Mccarthy [facility] 1.2.840.114 350.1.13.10 4.2.7.2.686 [id number] General acute hospital 2019-06-12 00:00:00 2019-06-12 00:00:00 Orders Only Doctor Unassigned, [place] [facility] 1.2.840.114 350.1.13.10 4.2.7.2.686 [id number] General acute hospital 2018-11-25 10:54:00 2018-11-25 10:54:00 [facility] [id number] [facility] 2018-11-22 12:54:00 2018-11-22 12:54:00 [place] [id number] [facility] 2018-11-22 10:00:00 2018-11-22 10:00:00 [facility] [id number] [facility] Results Test Description Test Time Test Comments Results Resul t Comments Source XR Hips 2 vw right 2025-03-05 5 15:58:02 EXAM: XR HIPS 2 VW RIGHT HISTORY: hip pain COMPARISON: 04/26/2024 FINDINGS: No acute fracture or dislocation is seen. Mild hip joint space narrowing ispresent with osteophytosis, subchondral sclerosis and cystic changes in theacetabulum. Vascular calcifications are seen. [facility] XR LUMBAR SPINE 2 VW 2025-03-05 5 15:35:30 EXAM: XR LUMBAR SPINE 2 VW HISTORY: lumbar radiculopathy COMPARISON: 04/26/2024 TECHNIQUE: Frontal and lateral views of the lumbar spine were obtained. [facility] [id number] [facility]:19:58XR CHEST 1 VW 02/14/2025 12:22 PM HISTORY: chest pain . COMPARISON: Chest radiograph dated 09/26/2024. FINDINGS: Cardiomediastinal silhouette is unremarkable. No focal lung capacity, sizable pleural effusion or pneumothorax. No acute osseous abnormality.[facility] [id number] 18:19:55* Test Item Value Reference Range Interpretation Comme nts TROPONIN I (test code = [id number]) 0.005 ng/mL <=0.034 RAFFY (test code = RAFFY) Reference (Normal) Range (defined by the 99th percentile reference limit): <= 0.034 ng/mL Note: Cardiac troponin begins to rise 3-4 hours after the onset of ischemia. Repeat in 4-6 hours if the sample was drawn within 3-4 hours of the onset of the symptom and found normal. Diagnosis of myocardial injury is made with acute changes in cTn concentrations with at least one serial sample above the 99th percentile upper reference limit (URL), taken together with the patient's clinical presentation. Biotin has been reported to cause a negative bias, interpret results relative to patient's use of biotin. Lab Interpretation (test code = 54015-0) [facility] 18:09:16* Test Item Value Reference Range Interpretation Comme nts MAGNESIUM (test code = 1039056465) 1.5 mg/dL 1.7-2.4 L Lab Interpretation (test cod e = 78005-8) [facility]normal [facility]OL[facility] PANEL (07729)2025-02-14 18:08:56* Test Item Value Reference Range Interpretation Comme nts NA (test code = 1138543619) 137 mmol/L 135-145 K (test code = 5580223055) 3.9 mmol/L 3.5-5.0 CL (test code = 3254654026) 100 mmol/L 98-108 CO2 TOTAL (test code = 3285176080) 28 mmol/L 23-31 AGAP (test code = 1606671640) 9 2-16 BUN (test code = 4841687702) 21 mg/dL 7-23 GLUCOSE (test code = 2262719108) 329 mg/dL 70-110 H CREATININE (test code = 2160-0) 0.54 mg/dL 0.50-1.04 TOTAL BILI (test code = 0022564869) 0.9 mg/dL 0.1-1.1 CALCIUM (test code = 9582191767) 8.7 mg/dL 8.6-10.6 T PROTEIN (test code = 2675590881) 7.3 g/dL 6.3-8.2 ALBUMIN (test code = 6775439065) 4.4 g/dL 3.5-5.0 ALK PHOS (test code = 0454277943) 92 U/L 34-122 ALTv (test code = 1742-6) 16 U/L 5-35 AST(SGOT) (test code = 3330449412) 34 U/L 13-40 eGFR (test code = 19202-3) 101.7 mL/min/1.73m2 CKD-EPI eGFR (2020). Assuming creatinine has been stable day-to-day for at least three months, the eGFR indicates Category G1 (>= 90 mL/min/1.73 m2) Lab Interpretation (test code = 24025-8) Abnormal [facility] WITH [id number] 17:39:55* Test Item Value Reference Range Interpretation Comme nts WBC (test code = 6690-2) 10.21 4.30-11.10 RBC (test code = 789-8) 4.92 3.93-5.25 HGB (test code = 718-7) 15.3 g/dL 11.6-15.0 H HCT (test code = 4544-3) 45.9 % 35.7-45.2 H MCV (test code = 787-2) 93.3 fL 80.6-95.5 MCH (test code = 785-6) 31.1 pg 25.9-32.8 MCHC (test code = 786-4) 33.3 g/dL 31.6-35.1 RDW-SD (test code = 90116-8) 45.5 fL 39.0-49.9 RDW-CV (test code = 788-0) 13.2 % 12.0-15.5 PLT (test code = 777-3) 228 166-358 MPV (test code = 32014-8) 10.9 fL 9.5-12.9 NRBC/100 WBC (test code = 0788687444) 0.0 0.0-10.0 NRBC x10^3 (test code = 4110686645) See_Comment [Automated messa ge] The system which generated this result transmitted reference range: 10*3/?L. The reference range was not used to interpret this result as normal/abnormal. GRAN MAT (NEUT) % (test code = 770-8) 56.6 % IMM GRAN % (test code = 9463940035) 0.30 % LYMPH % (test code = 736-9) 33.5 % MONO % (test code = 5905-5) 7.5 % EOS % (test code = 713-8) 1.4 % BASO % (test code = 706-2) 0.7 % GRAN MAT x10^3(ANC) (test code = 0137479172) 5.78 10*3/uL 1.88-7.09 IMM GRAN x10^3 (test code = 0259961007) 0.03 10*3/uL 0.00-0.06 LYMPH x10^3 (test code = 731-0) 3.42 10*3/uL 1.32-3.29 H MONO x10^3 (test code = 742-7) 0.77 10*3/uL 0.33-0.92 EOS x10^3 (test code = 711-2) 0.14 10*3/uL 0.03-0.39 BASO x10^3 (test code = 704-7) 0.07 10*3/uL 0.01-0.07 Lab Interpretation (test code = 80436-9) Abnormal [facility] W/AUTO [id number] 08:27:00* Test Item Value Reference Range Interpretation Comme nts WHITE BLOOD CELL (test code = WBC) 10.6 x10 3/uL 4.5-11.0 N RED BLOOD CELL (test code = RBC) 4.48 x10 6/uL 3.54-5.02 N HEMOGLOBIN (test code = HGB) 14.0 g/dL 11.0-15.0 N HEMATOCRIT (test code = HCT) 41.1 % 33.0-45.0 N MEAN CELL VOLUME (test code = MCV) 91.7 fL 81.0-99.0 N MEAN CELL HGB (test code = MCH) 31.3 pg 27.0-33.0 N MEAN CELL HGB CONCETRATION (test code = MCHC) 34.1 g/dL 33.0-37.0 N RED CELL DISTRIBUTION WIDTH CV (test code = RDW) 11.9 % 11.5-14.5 N RED CELL DISTRIBUTION WIDTH SD (test code = RDW-SD) 40.2 fL 37.0-54.0 N PLATELET COUNT (test code = PLT) 218 x10 3/uL 150-400 N MEAN PLATELET VOLUME (test c ode = MPV) 11.6 fL 7.0-9.0 H NEUTROPHIL % (test code = NT%) 46.3 % 56.0-77.0 L IMMATURE GRANULOCYTE % (test code = IG%) 0.4 % 0.0-2.0 N LYMPHOCYTE % (test code = LY%) 42.1 % 14.0-32.0 H MONOCYTE % (test code = MO%) 7.6 % 4.8-9.0 N EOSINOPHIL % (test code = EO%) 2.8 % 0.3-3.7 N BASOPHIL % (test code = BA%) 0.8 % 0.0-2.0 N NUCLEATED RBC % (test code = NRBC%) 0.0 % 0-0 N NEUTROPHIL # (test code = NT#) 4.91 x10 3/uL 2.0-7.6 N IMMATURE GRANULOCYTE # (test code = IG#) 0.04 x10 3/uL 0.00-0.03 H LYMPHOCYTE # (test code = LY#) 4.47 x10 3/uL 1.0-3.8 H MONOCYTE # (test code = MO#) 0.81 x10 3/uL 0.1-0.8 H EOSINOPHIL # (test code = EO#) 0.30 x10 3/uL 0.0-0.2 H BASOPHIL # (test code = BA#) 0.09 x10 3/uL 0.0-0.2 N NUCLEATED RBC # (test code = NRBC#) 0.00 x10 3/uL 0.0-0.1 N BASIC METABOLIC [id number] 06:42:00* Test Item Value Reference Range Interpretation Comme nts SODIUM (test code = NA) 137 mEq/L 134-147 N POTASSIUM (test code = K) 4.4 mEq/L 3.4-5.0 N CHLORIDE (test code = CL) 103 mEq/L 100-108 N CARBON DIOXIDE (test code = CO2) 26 mEq/l 21-33 N ANION GAP (test code = GAP) 12 0-20 N GLUCOSE (test code = GLU) 279 mg/dL 77-141 H BLOOD UREA NITROGEN (test code = BUN) 24 mg/dL 7-25 N GLOMERULAR FILTRATION RATE (test code = GFR) 95.3 80-90 H The Glomerular Filtration Rate is a calculated parameterbased on serum Creatinine, patient age and sex. GFR valuesless than 60 mL/min/1.73 square meters are indicative ofChronic Kidney Disease. Values less than 15 mL/min/1.73square meters indicate Kidney failure. The calculation forGFR is based on the CKD-EPI (2020) calculation. This formulais race indifferent and is the recommended formula for GFRby the National Kidney Foundation for Adults.The GFR will not calculate if the sex is unknown or if thepatient's age is <18 years. CREATININE (test code = CREAT) 0.7 mg/dL 0.6-1.3 N CALCIUM (test code = CA) 8.9 mg/dL 8.0-10.5 N LIPID PROFILE (CORONARY RISK)2024-08-29 06:42:00* Test Item Value Reference Range Interpretation Comme nts TRIGLYCERIDES (test code = TRIG) 423 mg/dL 40-150 H CHOLESTEROL (test code = CHOL) 162 mg/dL <200 CHOLESTEROL/HDL RATIO (test code = CHOLHDL) 4.78 RATIO 3.27-4.44 H RISK ASSOCIATED WITH CHOL/HDL RATIOS: RISK MALE FEMALE1/2 AVERAGE 3.43 3.27AVERAGE 4.97 4.442X AVERAGE 9.55 7.053X AVERAGE 23.39 11.04 NOTE THAT THE REFERENCE VALUE IS RELATEDTO RISK LEVELS RECOMMENDED BY THE NATL.HEART, LUNG, AND BLOOD INST. HDL CHOLESTEROL (test code = HDL) 33.9 MG/DL 40-60 L HDL Interpreta tion < 40.0 mg/dL Low (undesirable, high risk)> 60.0 mg/dL High (desirable, low risk) Reference interval for healthy adults was established by theNational Cholesterol Education Program (NCEP). LIPOPROTEIN LDL (test code = LDL) 89.0 mg/dL 0-100 N <100 [id number] 0-129 NEAR OPTIMAL/ABOVE [id number] HIGH>XZ=071 VERY HIGH*Guidelines provided by the National Cholesterol EducationProgram Adult Treatment Panel III [id number] 06:42:00* Test Item Value Reference Range Interpretation Comme nts PHOSPHOROUS (test code = PHOS) 3.7 MG/DL 2.5-4.9 N [id number] 06:42:00* Test Item Value Reference Range Interpretation Comme nts MAGNESIUM (test code = MAG) 1.34 mg/dL 1.6-2.6 L TROP-I HIGH [id number] 06:42:00* Test Item Value Reference Range Interpretation Comme nts TROP-I HIGH SENSITIVITY (test code = TROPIHS) 19 ng/L 0-34 N CAUTION: Units o f the current test methodology (ng/L) differfrom the prior test methodology (ng/mL) by a factor of 1000. 99th Percentile Upper Reference Limit (URL): Females: 34 ng/LMales: 54 ng/L In order to distinguish acute elevations of high sensitivitytroponin from other clinical conditions, the FourthUniversal Definition of Myocardial Infarction stressesclinical assessment and the demonstration of a rise and/orfall in serial troponin results above the URL. These results were obtained using [employer] IM TnIHreagent. Results from different methodologies should not becompared to one another as quantitative results and URLs mayvary by method. HGBA1C%2024-08-29 06:32:00* Test Item Value Reference Range Interpretation Comme [facility] HGBA1C% (test code = HGBA1C%) 10.6 %A1C 4.8-6.0 H GLUCOSE [id number] 22:03:00* Test Item Value Reference Range Interpretation Comme [facility] GLUCOSE BEDSIDE (test code = GLUBED) 388 MG/DL 70-110 H Performed by cer tified continuous wave operator at [facility] GLUCOSE [id number] 16:48:00* Test Item Value Reference Range Interpretation Comme [facility] GLUCOSE BEDSIDE (test code = GLUBED) 232 MG/DL 70-110 H Performed by cer tified continuous wave operator at [facility] TROP-I HIGH [id number] 14:24:00* Test Item Value Reference Range Interpretation Comme [facility] TROP-I HIGH SENSITIVITY (test code = TROPIHS) 25 ng/L 0-34 N CAUTION: Units o f the current test methodology (ng/L) differfrom the prior test methodology (ng/mL) by a factor of 1000. 99th Percentile Upper Reference Limit (URL): Females: 34 ng/LMales: 54 ng/L In order to distinguish acute elevations of high sensitivitytroponin from other clinical conditions, the FourthUniversal Definition of Myocardial Infarction stressesclinical assessment and the demonstration of a rise and/orfall in serial troponin results above the URL. These results were obtained using [employer] IM TnIHreagent. Results from different methodologies should not becompared to one another as quantitative results and URLs mayvary by method. GLUCOSE [id number] 14:10:00* Test Item Value Reference Range Interpretation Comme [facility] GLUCOSE BEDSIDE (test code = GLUBED) 320 MG/DL 70-110 H Performed by cer tified continuous wave operator at [facility] BASIC METABOLIC [id number] 10:58:00* Test Item Value Reference Range Interpretation Comme [facility] SODIUM (test code = NA) 137 mmol/L 136-145 N POTASSIUM (test code = K) 4.6 mmol/L 3.4-5.0 N CHLORIDE (test code = CL) 98 mmol/L 98-107 N CARBON DIOXIDE (test code = CO2) 28 mmol/L 21-32 N ANION GAP (test code = GAP) 11 GAP calc 4-15 N GLUCOSE (test code = GLU) 398 MG/DL 70-110 H BLOOD UREA NITROGEN (test code = BUN) 28 MG/DL 7-18 H GLOMERULAR FILTRATION RATE (test code = GFR) >=60 max estimate estGFR >60 The Glomerular Filtration Rate is a calculated parameterbased on serum Creatinine, patient age and sex. GFR valuesless than 60 mL/min/1.73 square meters are indicative ofChronic Kidney Disease. Values less than 15 mL/min/1.73square meters indicate Kidney failure. The calculation forGFR is based on the CKD-EPI (2020) calculation. This formulais race indifferent and is the recommended formula for GFRby the National Kidney Foundation for Adults.The GFR will not calculate if the sex is unknown or if thepatient's age is <18 years. CREATININE (test code = CREAT) 0.9 MG/DL 0.6-1.0 N CALCIUM (test code = CA) 8.8 MG/DL 8.5-10.1 N HEPATIC FUNCTION [id number] 10:58:00* Test Item Value Reference Range Interpretation Comme nts TOTAL PROTEIN (test code = PROT) 6.7 G/DL 6.4-8.2 N ALBUMIN (test code = ALB) 3.2 G/DL 3.4-5.0 L BILIRUBIN TOTAL (test code = BILT) 0.4 MG/DL 0.0-1.0 N BILIRUBIN DIRECT (test code = BILD) 0.1 MG/DL 0.0-0.3 N BILIRUBIN INDIRECT (test cod e = BILIND) 0.30 MG/DL 0.2-1.2 N SGOT/AST (test code = AST) 15 Unit/L 15-37 N SGPT/ALT (test code = ALT) 39 Unit/L 30-65 N ALKALINE PHOSPHATASE TOTAL ( test code = ALKP) 116 Unit/L 50-136 N CREATINE KINASE (CK)2024-08-28 10:58:00* Test Item Value Reference Range Interpretation Comme nts CREATINE KINASE (CK) (test c ode = CK) 34 Unit/L 21-215 N [id number] 10:58:00* Test Item Value Reference Range Interpretation [facility] LIPASE (test code = LIP) 63 Unit/L 13-75 N NT PRO-BRAIN NATRIURETIC [id number] 10:58:00* Test Item Value Reference Range Interpretation [facility] NT PRO-BRAIN NATRIURETIC PEP TI (test code = PROBNP) 930 PG/ML 0-100 H TROP-I HIGH [id number] 10:58:00* Test Item Value Reference Range Interpretation [facility] TROP-I HIGH SENSITIVITY (test code = TROPIHS) 33.1 ng/L 0-54 N CAUTION: Units o f the current test methodology (ng/L) differfrom the prior test methodology (ng/mL) by a factor of 1000. 99th Percentile Upper Reference Limit (URL):Females: 54 ng/LMales: 79 ng/L In order to distinguish acute elevations of high sensitivitytroponin from other clinical conditions, the FourthUniversal Definition of Myocardial Infarction stressesclinical assessment and the demonstration of a rise and/orfall in serial troponin results above the URL. Results from different methodologies should not be comparedto one another as quantitative results and URLs may varyby method. PROTHROMBIN [id number] 10:44:00* Test Item Value Reference Range Interpretation [facility] PT PATIENT (test code = PTP) 11.0 SECONDS 9.3-12.9 N INTERNATIONAL NORMAL RATIO (test code = INR) 1.00 INR Unit 0.8-1.2 N TARGET INR BY INDICATION Indication INR1. Prophylaxis of venous thrombosis 2.0 - 3.0 (orthopedic surgery), Prophylaxis of venous thrombosis (other than high-risk surgery), Treatment of Deep Vein Thrombosis/Pulmonary Embolism, Prevention of systemic embolism - Tissue heart valves, Acute Myocardial Infarction (to prevent systemic embolism), Valvular heart disease, Acute Myocardial Infarction (to prevent systemic embolism), Valvular heart disease, Atrial Fibrillation, Bileaflet mechanical valve in aortic position.2. Mechanical prosthetic valves (high risk), 2.5 - 3.5 Presence of Lupus Anticoagulant or Antiphospholipid Antibodies, Prevention of systemic embolism - Acute Myocardial Infarction (to prevent recurrent infarct). THROMBOPLASTIN TIME [id number] 10:44:00* Test Item Value Reference Range Interpretation Comme nts THROMBOPLASTIN TIME PARTIAL (test code = PTT) 33.4 SECONDS 26-35 N [id number] 10:44:00* Test Item Value Reference Range Interpretation Comme nts D-DIMER (test code = DDIMER) 246 ng/mLFEU 215-500 N THROMBOSIS AND/O R PULMONARY EMBOLISM AND THE CLINICAL CUT-OFF VALUE FOR EXCLUSION (500 ng/mL FEU) OF THESE CONDITIONSIS VALIDATED BY THE CHEESEMAKER HELPER OF THE METHOD. A NEGATIVE D-DIMER RESULT WHEN COMBINED WITH A CLINICALASSESSMENT OF LOW PRETEST PROBABILITY HAS BEEN SHOWN TO HAVEA HIGH NEGATIVE PREDICTIVE VALUE OF DVT OR PE. D-DIMER VALUES >500 ng/mL FEU ARE NOT DIAGNOSTIC FOR DVT, PEor DIC WITHOUT OTHER CONFIRMATORY TESTS AND APPROPRIATECLINICAL EUALUATIONS. CT ACUTE STROKE ANGIOGRAM [id number] 19:33:48EXAM: CT STROKE ANGIOGRAM NECK, CT STROKE ANGIOGRAM HEAD HISTORY: Neuro deficit, acute, stroke suspected TECHNIQUE: CTs head and neck angiograms were performed followingintravenous administration of contrast. Sagittal and coronal reformats weregenerated. COMPARISON: None. FINDINGS: CT NECK ANGIOGRAM Classic three-vessel branching anatomy of the aortic arch. Atheroscleroticcalcifications of the aortic arch extending into the ostia of major neckvessels without causing significant stenosis The innominate and subclavianarteries are patent. Calcified and noncalcified plaque at the left carotid bifurcation resultsin moderate approximately 50% stenosis at the ostium of the left internalcarotid artery. Mild atherosclerotic calcifications at the right carotidbulb without causing significant stenosis. The common carotid and internalcarotid arteries are otherwise patent. The bilateral vertebral arteries originate from the subclavian arteries andare visualized throughout their entire cervical length. Calcified plaquesnoted at the ostia of bilateral vertebral arteries resulting in mild tomoderate stenosis. Soft tissues of the neck are unremarkable. The visualized lung apices are clear. Mild spondylotic changes of the cervical spine. CT HEAD ANGIOGRAM PICA origin is visualized bilaterally. The basilar artery is normal incaliber and patent. The superior cerebellar arteries are unremarkable. origin of left ELECTRICAL/INSTRUMENT TECHNICIAN. The posterior cerebral arteries are patent. Smallright posterior communicating artery noted. The distal cervical, petrous, cavernous and supraclinoid ICAs are patent.The anterior and middle cerebral arteries are patent. Small anteriorcommunicating artery is visualized. Duralvenous sinuses are patent.[facility] ACUTE STROKE ANGIOGRAM NECK 2024-08-25 19:33:48EXAM: CT STROKE ANGIOGRAM NECK, CT STROKE ANGIOGRAM HEAD HISTORY: Neuro deficit, acute, stroke suspected TECHNIQUE: CTs head and neck angiograms were performed followingintravenous administration of contrast. Sagittal and coronal reformats weregenerated. COMPARISON: None. FINDINGS: CT NECK ANGIOGRAM Classic three-vessel branching anatomy of the aortic arch. Atheroscleroticcalcifications of the aortic arch extending into the ostia of major neckvessels without causing significant stenosis The innominate and subclavianarteries are patent. Calcified and noncalcified plaque at the left carotid bifurcation resultsin moderate approximately 50% stenosis at the ostium of the left internalcarotid artery. Mild atherosclerotic calcifications at the right carotidbulb without causing significant stenosis. The common carotid and internalcarotid arteries are otherwise patent. The bilateral vertebral arteries originate from the subclavian arteries andare visualized throughout their entire cervical length. Calcified plaquesnoted at the ostia of bilateral vertebral arteries resulting in mild tomoderate stenosis. Soft tissues of the neck are unremarkable. The visualized lung apices are clear. Mild spondylotic changes of the cervical spine. CT HEAD ANGIOGRAM PICA origin is visualized bilaterally. The basilar artery is normal incaliber and patent. The superior cerebellar arteries are unremarkable. origin of left ELECTRICAL/INSTRUMENT TECHNICIAN. The posterior cerebral arteries are patent. Smallright posterior communicating artery noted. The distal cervical, petrous, cavernous and supraclinoid ICAs are patent.The anterior and middle cerebral arteries are patent. Small anteriorcommunicating artery is visualized. Duralvenous sinuses are patent.[facility] ACUTE STROKE HEAD WO [id number] 19:23:01EXAM: CT STROKE HEAD WO CONTRAST HISTORY: Suspected stroke. TECHNIQUE: Axial CT of the head was performed and reconstructed at 5 mmintervals. Coronal and sagittal reformatted images were generated. COMPARISON: None FINDINGS: The ventricles and cerebral sulci are normal in caliber and configuration.No midline shift or pathological extra-axial fluid collection is present.The basal cisterns are unremarkable. No acute intracranial hemorrhage or significant mass effect is visualized.There are hypodensities in periventricular subcortical white matter region.Findings are nonspecific however likely represent microvascular changes.Small hypodensity within the right thalamus, likely remote lacunar infarct.The oconnor-white matter differentiation is preserved. The mastoid air cells and paranasal air sinuses are clear. The calvariumand central skull base are unremarkable.[facility] GLUCOSE (AUTOMATED)2024-08-25 17:11:28* Test Item Value Reference Range Interpretation Comme nts POCT GLU (test code = 2693556112) 200 mg/dL 70-110 H Lab Interpretation (test cod e = 50248-7) Abnormal [facility] GLUCOSE (AUTOMATED)2024-08-25 13:41:57* Test Item Value Reference Range Interpretation Comme nts POCT GLU (test code = 2749346603) 266 mg/dL 70-110 H Lab Interpretation (test cod e = 50560-6) Abnormal [facility] GLUCOSE (AUTOMATED)2024-08-24 21:34:28* Test Item Value Reference Range Interpretation Comme nts POCT GLU (test code = 3904668879) 263 mg/dL 70-110 H Lab Interpretation (test cod e = 76844-2) Abnormal [facility] GLUCOSE (AUTOMATED)2024-08-24 17:21:30* Test Item Value Reference Range Interpretation Comme nts POCT GLU (test code = 1285017006) 315 mg/dL 70-110 H Lab Interpretation (test cod e = 43901-3) Abnormal [facility] GLUCOSE (AUTOMATED)2024-08-24 13:49:56* Test Item Value Reference Range Interpretation Comme nts POCT GLU (test code = 7688250893) 229 mg/dL 70-110 H Lab Interpretation (test cod e = 18691-8) Abnormal [facility] GLUCOSE (AUTOMATED)2024-08-24 00:59:49* Test Item Value Reference Range Interpretation Comme nts POCT GLU (test code = 4106998931) 267 mg/dL 70-110 H Lab Interpretation (test cod e = 19048-3) [facility] Partial Thrmplas [id number] 22:12:41* Test Item Value Reference Range Interpretation Comme nts APTT Patient (test code = 3173-2) 31 26-36 Lab Interpretation (test cod e = 87753-6) [facility]aleTROPONIN [id number] 21:37:02* Test Item Value Reference Range Interpretation Comme nts TROPONIN I (test code = 4899202987) 0.046 ng/mL <=0.034 H RAFFY (test code = RAFFY) Reference (Normal) Range (defined by the 99th percentile reference limit): <= 0.034 ng/mL Note: Cardiac troponin begins to rise 3-4 hours after the onset of ischemia. Repeat in 4-6 hours if the sample was drawn within 3-4 hours of the onset of the symptom and found normal. Diagnosis of myocardial injury is made with acute changes in cTn concentrations with at least one serial sample above the 99th percentile upper reference limit (URL), taken together with the patient's clinical presentation. Biotin has been reported to cause a negative bias, interpret results relative to patient's use of biotin. Lab Interpretation (test code = 64197-3) [facility]OL[facility] PANEL (97181)2024-08-23 21:27:01* Test Item Value Reference Range Interpretation Comme nts NA (test code = 3701661740) 136 mmol/L 135-145 K (test code = 7174309196) 5.2 mmol/L 3.5-5.0 H Slight hemolysis CL (test code = 7661579486) 98 mmol/L 98-108 CO2 TOTAL (test code = 3547304279) 25 mmol/L 23-31 AGAP (test code = 6130519042) 13 2-16 BUN (test code = 1744682406) 20 mg/dL 7-23 Slight hemolysis GLUCOSE (test code = 4716606580) 133 mg/dL 70-110 H CREATININE (test code = 2160-0) 0.49 mg/dL 0.50-1.04 L TOTAL BILI (test code = 6142521700) 0.5 mg/dL 0.1-1.1 CALCIUM (test code = 9283324208) 9.2 mg/dL 8.6-10.6 T PROTEIN (test code = 2176796916) 6.9 g/dL 6.3-8.2 ALBUMIN (test code = 8196774639) 4.2 g/dL 3.5-5.0 ALK PHOS (test code = 8210492543) 89 U/L 34-122 Slight hemolysis ALTv (test code = 1742-6) 18 U/L 5-35 AST(SGOT) (test code = 5182974423) 28 U/L 13-40 Slight hemolysis eGFR (test code = 54590-9) 104.1 mL/min/1.73m2 CKD-EPI eGFR (2020). Assuming creatinine has been stable day-to-day for at least three months, the eGFR indicates Category G1 (>= 90 mL/min/1.73 m2) Lab Interpretation (test code = 76143-8) Abnormal [facility]alePROTHROMBIN [facility] / [id number] 21:07:39* Test Item Value Reference Range Interpretation Comme nts PROTIME PATIENT (test code = 5964-2) 10.4 10.1-12.6 INR (test code = 6301-6) 0.9 Normal INR <1.1; Warfarin Therapeutic range 2.0 to 3.0 or 2.5 to 3.5, depending upon the indications. Lab Interpretation (test code = 02240-7) Normal [facility] WITH [id number] 21:04:23* Test Item Value Reference Range Interpretation Comme nts WBC (test code = 6690-2) 10.67 4.30-11.10 RBC (test code = 789-8) 4.73 3.93-5.25 HGB (test code = 718-7) 14.8 g/dL 11.6-15.0 HCT (test code = 4544-3) 42.5 % 35.7-45.2 MCV (test code = 787-2) 89.9 fL 80.6-95.5 MCH (test code = 785-6) 31.3 pg 25.9-32.8 MCHC (test code = 786-4) 34.8 g/dL 31.6-35.1 RDW-SD (test code = 60334-9) 39.3 fL 39.0-49.9 RDW-CV (test code = 788-0) 11.9 % 12.0-15.5 L PLT (test code = 777-3) 239 166-358 MPV (test code = 08753-4) 10.6 fL 9.5-12.9 NRBC/100 WBC (test code = 4479829955) 0.0 0.0-10.0 NRBC x10^3 (test code = 0737780350) See_Comment [Automated messa ge] The system which generated this result transmitted reference range: 10*3/?L. The reference range was not used to interpret this result as normal/abnormal. GRAN MAT (NEUT) % (test code = 770-8) 53.1 % IMM GRAN % (test code = 8193972913) 0.40 % LYMPH % (test code = 736-9) 36.5 % MONO % (test code = 5905-5) 7.6 % EOS % (test code = 713-8) 1.7 % BASO % (test code = 706-2) 0.7 % GRAN MAT x10^3(ANC) (test code = 0401709744) 5.68 10*3/uL 1.88-7.09 IMM GRAN x10^3 (test code = 4401829074) 0.04 10*3/uL 0.00-0.06 LYMPH x10^3 (test code = 731-0) 3.89 10*3/uL 1.32-3.29 H MONO x10^3 (test code = 742-7) 0.81 10*3/uL 0.33-0.92 EOS x10^3 (test code = 711-2) 0.18 10*3/uL 0.03-0.39 BASO x10^3 (test code = 704-7) 0.07 10*3/uL 0.01-0.07 Lab Interpretation (test code = 83058-3) Abnormal [facility] GLUCOSE (AUTOMATED)2024-08-22 21:15:19* Test Item Value Reference Range Interpretation Comme nts POCT GLU (test code = 5020768733) 271 mg/dL 70-110 H Lab Interpretation (test cod e = 71901-6) Abnormal [facility] GLUCOSE (AUTOMATED)2024-08-22 20:19:44* Test Item Value Reference Range Interpretation Comme nts POCT GLU (test code = 6845130965) 301 mg/dL 70-110 H Lab Interpretation (test cod e = 04299-6) [facility]aleThyroid Stimulating Veygnbj8083-09-19 18:45:34 * Test Item Value Reference Range Interpretation Comme nts TSH (test code = 9582527260) 1.77 0.45-4.70 Biotin has been reported to cause a negative bias, interpret results relative to patient's use of biotin. Lab Interpretation (test code = 65589-0) Normal [facility]aleGlycosylated Hemoglobin (A1C)2024-08-22 18:30:30* Test Item Value Reference Range Interpretation Comme nts HGB A1C (test code = 4548-4) 10.9 % 4.0-5.7 H RAFFY (test code = RAFFY) Reference RangesNormal: <5.7%Prediabetes: 5.7 - 6.4%Diabetes: > 6.5% Lab Interpretation (test code = 30311-0) [facility]normal [facility]aleLipid Panel (88065)(Total Cholesterol, Triglycerides, HDL)2024-08-22 18:15:42* Test Item Value Reference Range Interpretation Comme nts CHOL (test code = 4452703289) 182 mg/dL 120-200 HDL (test code = 7515731240) 31 mg/dL >=50 L HDLC RATIO (test code = 5903087623) 5.9 <=4.5 H TRIG (test code = 3332713637) 227 mg/dL 30-170 H LDL CHOL (test code = 39392-5) 106 mg/dL <=160 VLDL (test code = 4125655009) 45 mg/dL 5-60 Lab Interpretation (test cod e = 68781-3) [facility]normal [facility]aleGlycosylated Hemoglobin (A1C)2024-08-22 18:14:19* Test Item Value Reference Range Interpretation Comme nts HGB A1C (test code = 4548-4) 11.0 % 4.0-5.7 H RAFFY (test code = RAFFY) Reference RangesNormal: <5.7%Prediabetes: 5.7 - 6.4%Diabetes: > 6.5% Lab Interpretation (test code = 01923-8) [facility]normal [facility] (AUTOMATED)2024-08-22 17:15:15* Test Item Value Reference Range Interpretation Comme [facility] POCT GLU (test code = 7432325022) 337 mg/dL 70-110 H Lab Interpretation (test cod e = 87028-1) Abnormal [facility]aleTransthoracic echo (TTE) [id number] 15:42:16* Test Item Value Reference Range Interpretation Comme [facility] Height (test code = 0863269520) 65 in Weight (test code = 6153425043) 168 lbs Systolic BP (test code = 5027737567) 126 mmHg Diastolic BP (test code = 7588103946) 75 mmHg Heart Rate (test code = 9904545454) 81 bpm LV GLS Endo Peak A2C () (test code = 5581848918) -18.80 % LV GLS Endo Peak A3C () (test code = 7777878694) -26.40 % LV GLS Endo Peak A4C () (test code = 7127294541) -23.60 % LV GLS Endo Peak Avg () (test code = 2232537625) -22.90 % BSA (test code = 2892578142) 1.84 m2 LVIDS (test code = 5512867574) 2.90 cm Left Ventricular End Systolic Volume by Teichholz Method (test code = 3718071) 32.8 mL Ao root diam (test code = 7549408950) 3.20 cm Aortic root (test code = 8984380163) 3.2 cm Ao root annulus (test code = 8500406801) 3.2 cm MV Prop V (test code = 8610023645) 37.60 cm/s MV Peak A Bereket (test code = 8091457562) 134.3 cm/s MV Peak E Bereket (test code = 8094109888) 100.3 cm/s E/A ratio (test code = 2274567312) 0.75 ratio MV stenosis pressure 1/2 time (test code = 5336605903) 85.6 ms E wave decelartion time (test code = 6409595636) 0.30 s Tapse (test code = 2109665300) 2.6 cm Aortic valve mean velocity (test code = 7025455929) 82.9 cm/s Ao peak bereket (test code = 6572824266) 130.2 cm/s Ao VTI (test code = 1740699896) 22.5 cm Ao max PG (test code = 6179294673) 6.80 mm[Hg] AV peak gradient (test code = 9987807600) 6.8 mmHg AV mean gradient (test code = 9276222671) 3.1 mmHg LVOT peak bereket (test code = 9745916514) 100.3 cm/s LVOT mn grad (test code = 5196679240) 2.1 mmHg AV LVOT peak gradient (test code = 0412311053) 4.0 mmHg LVOT peak VTI (test code = 8445027393) 17.1 cm LV V1 mean (test code = 4144249748) 67.30 cm/s MR max PG (test code = 0438118405) 29.20 mm[Hg] MR max bereket (test code = 9101571128) 255.40 cm/s Mr max bereket (test code = 5262755413) 255.4 m/s LAV(MOD-sp4) (test code = 0729480540) 37.80 mL EF(Teich) (test code = 6146077107) 54.70 % LVIDD (test code = 4429058723) 4.10 cm Left Ventricular End Diastolic Volume by Teichholz Method (test code = 1276030) 72.3 mL IVS (test code = 2849617700) 1.36 cm FS (test code = 4984111994) 28 % Interventricular Septum Diastolic Thickness by 2D (test code = 6819160) 1.36 cm EF - 2D (test code = 96364713) 54.70 % LVPWD (test code = 3204543399) 1.37 cm PW (test code = 6767267820) 1.37 cm 0.6-1.1 LA size (test code = 5370047072) 3.3 cm LVOT stroke volume (test code = 1113398648) 56.40 cm3 LVOT diameter (test code = 3440468046) 2.05 cm LVOT area (test code = 2354929589) 3.30 cm2 AV area by cont VTI (test code = 7557495528) 2.5 cm2 AV area peak bereket (test code = 4484633741) 2.5 cm2 AV valve area (test code = 7044582282) 2.50 cm2 Radiology Study observation (narrative) (test code = 79263-2) RAFFY (test code = RAFFY) ?Left?Ventricle: Left ventricle size is normal. Mild basal septal thickening. See diagram for wall motion findings. Low normal systolic function with a visually estimated EF of 50 - 55%. There is impaired relaxation. ?Tricuspid?Valve: Insufficient regurgant jet to estimate RVSP. ?RA pressure is 0-5 mmHg. ?Pericardium: Small pericardial effusion present. No indication of cardiac tamponade. Left VentricleLeft ventricle size is normal. Mild basal septal thickening. See diagram for wall motion findings. Low normal systolic function with a visually estimated EF of 50 - 55%. There is impaired relaxation.Right VentricleRight ventricle size is normal. Normal systolic function.Left AtriumLeft atrium size is normal.Right AtriumRight atrium size is normal.IVC/SVCIVC diameter is less than or equal to 21 mm and decreases greater than 50% during inspiration; therefore the estimated right atrial pressure is normal (~0-5 mmHg).Mitral ValveMildly thickened leaflets. Mild mitral annular calcification. Trace transvalvular regurgitation.Tricusp id ValveTricuspid valve structure is normal. Trace transvalvular regurgitation. Insufficient tricuspid regurgitation jet to estimate RVSP . RA pressure is 0-5 mmHg.Aortic ValveTricuspid. Mildly thickened cusps. Mildly calcified cusps.Pulmonic ValveNot well visualized.Ascending AortaNormal sized aorta.PericardiumSmal l pericardial effusion present. No indication of cardiac tamponade.Study DetailsStudy quality was adequate. A complete echocardiogram was performed using 2D, color flow Doppler, spectral Doppler and strain.Wall Scoring BaselineScore Index: 1.18The following segments are hypokinetic: basal inferior, basal inferolateral and mid inferolateral.All other segments are normal. [facility]alePO[facility] GLU[facility]SE (AUTOMATED)2024-08-22 14:22:26* Test Item Value Reference Range Interpretation Comme nts POCT GLU (test code = 9294712163) 187 mg/dL 70-110 H Lab Interpretation (test cod e = 78863-9) Abnormal [facility] SunnyvaleProthrombin Time (PT) / [id number] 11:35:34 * Test Item Value Reference Range Interpretation Comme nts PROTIME PATIENT (test code = 5964-2) 11.9 10.1-12.6 INR (test code = 6301-6) 1.0 Normal INR <1.1; Warfarin Therapeutic range 2.0 to 3.0 or 2.5 to 3.5, depending upon the indications. Lab Interpretation (test code = 71853-2) Normal [facility] SunnyvaleaPTT2024-10-18 11:35:34* Test Item Value Reference Range Interpretation Comme nts APTT Patient (test code = 3173-2) 33 26-36 RAFFY (test code = RAFFY) The [facility] patient population mean normal value for aPTT is 30 seconds. Lab Interpretation (test code = 65922-1) Normal [facility]valeTroponin [id number] 10:59:29* Test Item Value Reference Range Interpretation Comme nts TROPONIN I (test code = 1806261877) 0.086 ng/mL <=0.034 H RAFFY (test code = RAFFY) Reference (Normal) Range (defined by the 99th percentile reference limit): <= 0.034 ng/mL Note: Cardiac troponin begins to rise 3-4 hours after the onset of ischemia. Repeat in 4-6 hours if the sample was drawn within 3-4 hours of the onset of the symptom and found normal. Diagnosis of myocardial injury is made with acute changes in cTn concentrations with at least one serial sample above the 99th percentile upper reference limit (URL), taken together with the patient's clinical presentation. Biotin has been reported to cause a negative bias, interpret results relative to patient's use of biotin. Lab Interpretation (test code = 27829-1) Abnormal [facility]valeXR CHEST 2 [id number] 09:34:30ORDERING PHYSICIAN: ZHAO ROSARIO CLINICAL HISTORY: Chest pain TECHNIQUE: Two views of the chest COMPARISON: None available. FINDINGS: The cardiac silhouette is within normal limits. Lungs are clear. Osseous structures are normal. [facility] SunnyvaleCb with [id number] 09:22:53* Test Item Value Reference Range Interpretation Comme [facility] WBC (test code = 6690-2) 10.17 4.30-11.10 RBC (test code = 789-8) 4.75 3.93-5.25 HGB (test code = 718-7) 15.2 g/dL 11.6-15.0 H HCT (test code = 4544-3) 44.1 % 35.7-45.2 MCV (test code = 787-2) 92.8 fL 80.6-95.5 MCH (test code = 785-6) 32.0 pg 25.9-32.8 MCHC (test code = 786-4) 34.5 g/dL 31.6-35.1 RDW-SD (test code = 13135-2) 40.2 fL 39.0-49.9 RDW-CV (test code = 788-0) 11.7 % 12.0-15.5 L PLT (test code = 777-3) 202 166-358 MPV (test code = 39022-5) 11.1 fL 9.5-12.9 IPF % (test code = 3077687054) 4.5 % 1.3-7.7 Platelet count measured by fluorescence method. NRBC/100 WBC (test code = 0141930746) 0.0 0.0-10.0 NRBC x10^3 (test code = 7929712540) See_Comment [Automated message] The system which generated this result transmitted reference range: 10*3/?L. The reference range was not used to interpret this result as normal/abnormal. SEG % (test code = 12298-5) 44 % 33-76 LYMPH % (test code = 93313-4) 48 % 14-54 MONO % (test code = 39609-9) 8 % 0-4 H ANC (test code = 753-4) 4.47 10*3/uL 1.88-7.09 PLT ESTIMATE (test code = 9317-9) Normal Normal DIFF COMMENTS (test code = 6612032990) Rare platelet clump seen on slide; platelet estimate is normal. Lab Interpretation (test code = 43225-8) Abnormal [facility] SunnyvaleJoe [id number] 09:03:46* Test Item Value Reference Range Interpretation Comme nts TROPONIN I (test code = 4257907191) 0.072 ng/mL <=0.034 H RAFFY (test code = RAFFY) Reference (Normal) Range (defined by the 99th percentile reference limit): <= 0.034 ng/mL Note: Cardiac troponin begins to rise 3-4 hours after the onset of ischemia. Repeat in 4-6 hours if the sample was drawn within 3-4 hours of the onset of the symptom and found normal. Diagnosis of myocardial injury is made with acute changes in cTn concentrations with at least one serial sample above the 99th percentile upper reference limit (URL), taken together with the patient's clinical presentation. Biotin has been reported to cause a negative bias, interpret results relative to patient's use of biotin. Lab Interpretation (test code = 37013-9) Abnormal [facility] SunnyvaleN-Terminal Ybj-[id number] 08:55:11* Test Item Value Reference Range Interpretation Comme nts NT-proBNP (test code = 63483-3) 1340 pg/mL <=125 H RAFFY (test code = RAFFY) Positive: Heart Failure Likely Lab Interpretation (test code = 87276-4) Abnormal [facility] SunnyvaleComp. Metabolic Panel (46032)2024-08-22 08:46:32* Test Item Value Reference Range Interpretation Comme nts NA (test code = 2789635867) 133 mmol/L 135-145 L K (test code = 9093648354) 4.2 mmol/L 3.5-5.0 CL (test code = 5818920845) 99 mmol/L 98-108 CO2 TOTAL (test code = 2855918629) 23 mmol/L 23-31 AGAP (test code = 4064883240) 11 2-16 BUN (test code = 1716320148) 21 mg/dL 7-23 GLUCOSE (test code = 8506943659) 245 mg/dL 70-110 H CREATININE (test code = 2160-0) 0.43 mg/dL 0.50-1.04 L TOTAL BILI (test code = 0942164422) 0.7 mg/dL 0.1-1.1 CALCIUM (test code = 2066655861) 9.0 mg/dL 8.6-10.6 T PROTEIN (test code = 8549006998) 7.5 g/dL 6.3-8.2 ALBUMIN (test code = 8094097141) 4.4 g/dL 3.5-5.0 ALK PHOS (test code = 6155713114) 99 U/L 34-122 ALTv (test code = 1742-6) 19 U/L 5-35 AST(SGOT) (test code = 5574497257) 26 U/L 13-40 eGFR (test code = 24324-3) 107.4 mL/min/1.73m2 CKD-EPI eGFR (2020). Assuming creatinine has been stable day-to-day for at least three months, the eGFR indicates Category G1 (>= 90 mL/min/1.73 m2) Lab Interpretation (test code = 77420-0) Abnormal [facility] SunnyvaleRADRPT2024-06-24 18:01:25* Test Item Value Reference Range Interpretation Comme nts RADRPT (test code = RADRPT) Radiation Dose CTDIVOL = 0 (mGy): DLP = 406.1 (mGy-cm)PROCEDURE INFORMATION: Exam: CT Abdomen And Pelvis With Contrast Exam date and time: 04/28/2024 12:39 PM Age: 64 years old Clinical indication: /abd pain, generalized, constipation TECHNIQUE: Imaging protocol: Computed tomography of the abdomen and pelvis with contrast. Radiation optimization: All CT scans at this facility use at least one of these dose optimization techniques: automated exposure control; mA and/or kV adjustment per patient size (includes targeted exams where dose is matched to clinical indication); or iterative reconstruction. Contrast material: QTNM328; Contrast volume: 65 ml; Contrast route: INTRAVENOUS (IV); COMPARISON: No relevant prior studies available. RADIATION DOSE METRICS: Total DLP (mGy-cm): 406.1 FINDINGS: Lungs: There is mild atelectasis at the right lung base. Coronary arteries: Coronary artery calcifications are noted. Liver: Normal. No mass. Gallbladder and biliary ducts: Normal. No calcified stones. No ductal dilation. Pancreas: Normal. No ductal dilation. Spleen: Normal. No splenomegaly. Adrenal glands: Normal. No mass. Kidneys and ureters: Normal. No hydronephrosis. Stomach and bowel: Bowel loops are normal in caliber. There is no wall thickening. Multiple colonic diverticuli are noted without evidence of acute diverticulitis. Appendix: No evidence of appendicitis. Intraperitoneal space: Unremarkable. No free air. No significant fluid collection. Vasculature: Calcifications of the aortic and mitral valves are noted. Lymph nodes: Unremarkable. No enlarged lymph nodes. Urinary bladder: Unremarkable as visualized. Reproductive: Unremarkable as visualized. Bones/joints: Unremarkable. No acute fracture. Soft tissues: Unremarkable. IMPRESSION: 1. No acute or suspicious abnormalities of the abdomen/pelvis. 2. Uncomplicated left colonic diverticulosis. Mya Saldivar MD On 04/28/2024 13:01:11; [id number] [facility] UptownAqjjmmhVEHFZAEWM9182-77-66 16:06:00* Test Item Value Reference Range Interpretation Comme nts Glucose Lvl (test code = Glucose Lvl) 273 70-99 BUN (test code = BUN) 18 7-22 Creatinine Lvl (test code = Creatinine Lvl) 0.89 0.50-1.40 Sodium Lvl (test code = Sodium Lvl) 135 135-145 Potassium Lvl (test code = P otassium Lvl) 4.2 3.5-5.1 Chloride Lvl (test code = Chloride Lvl) 102 95-109 CO2 (test code = CO2) 29 24-32 Calcium Lvl (test code = Calcium Lvl) 8.7 8.5-10.5 Total Protein (test code = T otal Protein) 6.7 6.4-8.4 Albumin Lvl (test code = Albumin Lvl) 3.5 3.5-5.0 ALT (test code = ALT) 19 <=65 AST (test code = AST) 11 <=37 Alk Phos (test code = Alk Phos) 73 39-136 Bili Total (test code = Bili Total) 0.3 0.2-1.3 AGAP (test code = AGAP) 8.2 10.0-20.0 B/C Ratio (test code = B/C Ratio) 20 1 6-25 Globulin (test code = Globulin) 3.2 2.7-4.2 A/G Ratio (test code = A/G Ratio) 1.1 1 0.7-1.6 eGFR (test code = eGFR) 72 Lipase Lvl (test code = Lipase Lvl) 76 13-77 [facility] CenterBxtwnnjYOQBWFMQTR5361-52-48 16:06:00* Test Item Value Reference Range Interpretation Comme nts WBC X 10x3 (test code = WBC X 10x3) 8.13 4.15-10.55 NRBC % (test code = NRBC %) 0.0 <=0.0 RBC X 10x6 (test code = RBC X 10x6) 4.71 3.74-5.22 Hgb (test code = Hgb) 14.7 10.8-14.8 Hct (test code = Hct) 42.8 33.9-45.4 MCV (test code = MCV) 90.9 77.8-97.5 MCH (test code = MCH) 31.2 pg 24.9-32.6 MCHC (test code = MCHC) 34.3 30.1-35.0 RDW - SD (test code = RDW - SD) 39.9 37.6-49.1 Platelet (test code = Platelet) 212 191-422 MPV (test code = MPV) 10.6 9.0-12.6 Segmented Neutrophils (test code = Segmented Neutrophils) 48.0 40.9-70.4 Lymphocytes (test code = Lymphocytes) 42.4 15.3-46.4 Monocytes (test code = Monocytes) 6.5 3.9-10.9 Eosinophils (test code = Eosinophils) 2.3 0.3-4.1 Basophils (test code = Basophils) 0.6 0.2-1.3 Immature Granulocytes # (sujata t code = Immature Granulocytes #) 0.2 0.1-1.0 Segmented Neutrophils # (sujata t code = Segmented Neutrophils #) 3.89 2.03-7.09 Lymphocytes # (test code = Lymphocytes #) 3.45 1.09-3.65 Monocytes # (test code = Monocytes #) 0.53 0.27-0.78 Eosinophils # (test code = Eosinophils #) 0.19 0.02-0.33 Basophils # (test code = Basophils #) 0.05 0.01-0.09 Immature Granulocytes (test code = Immature Granulocytes) 0.02 0.01-0.07 [facility] AND [id number] 16:06:00* Test Item Value Reference Range Interpretation Comme nts UA Color (test code = UA Color) Yellow *NA*(04/28/24 11:06 AM) UA Turbidity (test code = UA Turbidity) Clear (04/28/24 11:06 AM) UA Spec Grav (test code = UA Spec Grav) 1.022 1 UA pH (test code = UA pH) 5.0 1 5.0-8.0 UA Protein (test code = UA Protein) Negative mg/dL UA Glucose (test code = UA Glucose) >=500 mg/dL UA Ketones (test code = UA Ketones) Negative mg/dL UA Bili (test code = UA Bili) Negative *NA*(04/28/24 11:06 AM) UA Blood (test code = UA Blood) Negative (04/28/24 11:06 AM) UA Nitrite (test code = UA Nitrite) Negative (04/28/24 11:06 AM) UA Leuk Est (test code = UA Leuk Est) Negative (04/28/24 11:06 AM) UA Ascorbic Acid (test code = UA Ascorbic Acid) 40 4*ABN*(04/28/24 11:06 AM) UA Sq Epi (test code = UA Sq Epi) Few /LPF UA WBC (test code = UA WBC) 5 <=5 UA RBC (test code = UA RBC) 1 <=2 UA Bacteria (test code = UA Bacteria) Occasional /HPF UA Mucus (test code = UA Mucus) Few /LPF UA Urobilinogen (test code = UA Urobilinogen) <=1.0 mg/dL 0.1-1.0 [facility] HIPS 2 VW [id number] 15:14:00EXAM: XR HIPS 2 VW RIGHT CLINICAL HISTORY: right hip pain COMPARISON: None TECHNIQUE: XR HIPS 2 VW RIGHT performed. AP pelvis. Technical Quality: Adequate FINDINGS: There are no appreciable fracture lines or subluxations. ?There is gross anatomic alignment. ?No appreciable joint effusion. Mild osteoarthritis.[facility]aleXR LUMBAR SPINE 2 [id number] 15:12:44ORDERING PHYSICIAN: BOBBY PETTY HISTORY: right lower back pain TECHNIQUE: 2 views of the lumbar spine COMPARISON: March 19, 2017 FINDINGS: There is normal vertebral body height and alignment. Mild degenerative disc disease. The sacroiliac joints are normal. [facility] SunnyvaleTROPONIN [id number] 20:35:14* Test Item Value Reference Range Interpretation Comme nts TROPONIN I (test code = 2056184232) 0.003 ng/mL <=0.034 RAFFY (test code = RAFFY) Reference (Normal) Range (defined by the 99th percentile reference limit): <= 0.034 ng/mL Note: Cardiac troponin begins to rise 3-4 hours after the onset of ischemia. Repeat in 4-6 hours if the sample was drawn within 3-4 hours of the onset of the symptom and found normal. Diagnosis of myocardial injury is made with acute changes in cTn concentrations with at least one serial sample above the 99th percentile upper reference limit (URL), taken together with the patient's clinical presentation. Biotin has been reported to cause a negative bias, interpret results relative to patient's use of biotin. Lab Interpretation (test code = 84411-6) Normal [facility]alePOCT GLUCOSE (AUTOMATED)2024-01-14 19:58:07* Test Item Value Reference Range Interpretation Comme nts POCT GLU (test code = 1519674326) 402 mg/dL 70-110 H Lab Interpretation (test cod e = 18425-9) Abnormal [facility] WITH [id number] 19:12:39* Test Item Value Reference Range Interpretation Comme nts WBC (test code = 6690-2) 12.84 4.30-11.10 H RBC (test code = 789-8) 4.95 3.93-5.25 HGB (test code = 718-7) 15.6 g/dL 11.6-15.0 H HCT (test code = 4544-3) 44.1 % 35.7-45.2 MCV (test code = 787-2) 89.1 fL 80.6-95.5 MCH (test code = 785-6) 31.5 pg 25.9-32.8 MCHC (test code = 786-4) 35.4 g/dL 31.6-35.1 H RDW-SD (test code = 01195-0) 40.5 fL 39.0-49.9 RDW-CV (test code = 788-0) 12.4 % 12.0-15.5 PLT (test code = 777-3) 244 166-358 MPV (test code = 49869-8) 10.8 fL 9.5-12.9 NRBC/100 WBC (test code = 6397214353) 0.0 0.0-10.0 NRBC x10^3 (test code = 3109461482) See_Comment [Automated [employer]] The system which generated this result transmitted reference range: 10*3/?L. The reference range was not used to interpret this result as normal/abnormal. SEG % (test code = 58853-0) 60 % 33-76 LYMPH % (test code = 64858-4) 33 % 14-54 MONO % (test code = 76640-0) 6 % 0-4 H EOS % (test code = 56753-5) 1 % 0-3 ANC (test code = 753-4) 7.70 10*3/uL 1.88-7.09 H Lab Interpretation (test code = 66256-0) [facility]normal [facility]aleXR CHEST 1 [id number] 18:49:58CHEST ONE VIEW HISTORY: ?Chest pain TECHNIQUE: ?AP view of the chest is obtained. COMPARISON: 07/05/2022 FINDINGS: Lungs are clear. Heart size and mediastinal silhouette arenormal. No pleural effusionor pneumothorax is seen. CONCLUSIONS: No acute cardiopulmonary disease.[facility] SunnyvaleTROPONI [id number] 18:31:29* Test Item Value Reference Range Interpretation Comme nts TROPONIN I (test code = 4019670859) 0.003 ng/mL <=0.034 RAFFY (test code = RAFFY) Reference (Normal) Range (defined by the 99th percentile reference limit): <= 0.034 ng/mL Note: Cardiac troponin begins to rise 3-4 hours after the onset of ischemia. Repeat in 4-6 hours if the sample was drawn within 3-4 hours of the onset of the symptom and found normal. Diagnosis of myocardial injury is made with acute changes in cTn concentrations with at least one serial sample above the 99th percentile upper reference limit (URL), taken together with the patient's clinical presentation. Biotin has been reported to cause a negative bias, interpret results relative to patient's use of biotin. Lab Interpretation (test code = 86939-4) Normal [facility] SunnyvaleN-TERMINAL [id number] 18:31:29* Test Item Value Reference Range Interpretation Comme nts NT-proBNP (test code = 10394-4) 40 pg/mL <=125 Lab Interpretation (test cod e = 55004-1) Normal [facility] SunnyvaleCOMP. METABOLIC PANEL (72946)2024-01-14 18:26:23* Test Item Value Reference Range Interpretation Comme nts NA (test code = 7037271821) 129 mmol/L 135-145 L K (test code = 1790859312) 4.1 mmol/L 3.5-5.0 CL (test code = 2059987131) 92 mmol/L 98-108 L CO2 TOTAL (test code = 7559868402) 27 mmol/L 23-31 AGAP (test code = 8546631937) 10 2-16 BUN (test code = 9154931831) 28 mg/dL 7-23 H GLUCOSE (test code = 7766240916) 593 mg/dL 70-110 HH CREATININE (test code = 2160-0) 0.63 mg/dL 0.50-1.04 TOTAL BILI (test code = 4846914736) 0.5 mg/dL 0.1-1.1 CALCIUM (test code = 6763564364) 9.1 mg/dL 8.6-10.6 T PROTEIN (test code = 1343851242) 7.6 g/dL 6.3-8.2 ALBUMIN (test code = 9198718406) 4.4 g/dL 3.5-5.0 ALK PHOS (test code = 8183404636) 142 U/L 34-122 H ALTv (test code = 1742-6) 30 U/L 5-35 AST(SGOT) (test code = 6212598632) 27 U/L 13-40 eGFR (test code = 82442-2) 98.6 mL/min/1.73m2 CKD-EPI eGFR (2020). Assuming creatinine has been stable day-to-day for at least three months, the eGFR indicates Category G1 (>= 90 mL/min/1.73 m2) Lab Interpretation (test code = 50486-5) [facility] THRMPLAS [id number] 18:21:27* Test Item Value Reference Range Interpretation Comme [facility] APTT Patient (test code = 3173-2) 29 -36 Lab Interpretation (test cod e = 76310-6) Normal [facility] / [id number] 18:21:27* Test Item Value Reference Range Interpretation Comme [facility] PROTIME PATIENT (test code = 5964-2) 10.7 10.1-12.6 INR (test code = 6301-6) 0.9 Normal INR <1.1; Warfarin Therapeutic range 2.0 to 3.0 or 2.5 to 3.5, depending upon the indications. Lab Interpretation (test code = 26917-5) Normal [facility]aleD-[id number] 18:21:27* Test Item Value Reference Range Interpretation Comments D-DIMER (test code = 6540681483) 0.56 See_Comment H [Automated message] The system which generated this result transmitted reference range: <0.50 ?g/mL (FEU). The reference range was not used to interpret this result as normal/abnormal. RAFFY (test code = RAFFY) This test may be used in conjunction with a clinical pretest probability (PTP) assessment model to exclude venous thromboembolism (VTE) in patients suspected of deep venous thrombosis (DVT) and pulmonary embolism (PE) A D-Dimer value less than 0.50 ?g/ml (FEU) has a negative predicative value of 96 to 100% (95% CI)and 97 to 100% (95% CI) as an aid in the diagnosis of deep vein thrombosis (DVT) and pulmonary embolism when there is low or moderate pretest probability of PE or DVT. D-Dimer values are expressed in initial fibrinogen equivalent units (FEU)" The assay results should be used with other information, including the clinical context, in forming a diagnosis. Lab Interpretation (test code = 08170-8) Abnormal [facility] GLUCOSE (AUTOMATED)2022-07-07 01:17:15* Test Item Value Reference Range Interpretation Comme [facility] POCT GLU (test code = 4780638479) 351 mg/dL 70-110 H Lab Interpretation (test cod e = 41341-2) Abnormal [facility] GLUCOSE (AUTOMATED)2022-07-06 22:03:19* Test Item Value Reference Range Interpretation Comme [facility] POCT GLU (test code = 6371304000) 307 mg/dL 70-110 H Lab Interpretation (test cod e = 21486-3) [facility] (TTE)2022-07-06 18:52:57* Test Item Value Reference Range Interpretation Comme nts Height (test code = 9037425052) in Weight (test code = 0564780166) lbs Systolic BP (test code = 5023410972) mmHg Diastolic BP (test code = 5683080574) mmHg Heart Rate (test code = 2568661063) bpm BSA (test code = 9259786083) 1.81 m2 Ao root annulus (test code = 7108271765) 3.3 cm Ao root diam (test code = 2362971443) 3.30 cm Aortic root (test code = 2533530717) 3.3 cm LVOT diameter (test code = 0858286488) 2.07 cm LVOT area (test code = 7352561200) 3.40 cm2 LVIDD (test code = 3055675004) 4.30 cm Left Ventricular End Diastolic Volume by Teichholz Method (test code = 4338751) 81.3 mL IVS (test code = 0423518424) 1.20 cm Interventricular Septum Diastolic Thickness by 2D (test code = 1883700) 1.20 cm LVPWD (test code = 1378438604) 1.20 cm PW (test code = 1460830037) 1.20 cm 0.6-1.1 EF(Teich) (test code = 6666249177) 60.60 % LVIDS (test code = 5066309891) 2.90 cm Left Ventricular End Systolic Volume by Teichholz Method (test code = 0442912) 32.0 mL FS (test code = 7765486384) 32 % EF - 2D (test code = 80111486) 60.60 % LA size (test code = 2094080640) 3.6 cm LAV(MOD-sp4) (test code = 8731653120) 40.80 mL E wave decelartion time (test code = 2734489553) 0.26 s MV stenosis pressure 1/2 time (test code = 7502417303) 75.3 ms MV Peak E Bereket (test code = 5789535395) 88.3 cm/s MV Peak A Bereket (test code = 9112190137) 114.0 cm/s E/A ratio (test code = 5256379299) ratio MV Prop V (test code = 7090688776) 23.60 cm/s MV E/e' septal (test code = 0874381287) 9.7 cm/s Tapse (test code = 9478729481) 1.67 cm LVOT stroke volume (test code = 4249056378) 69.20 cm3 LVOT peak bereket (test code = 2440086595) 87.6 cm/s LVOT mn grad (test code = 6016902891) mmHg AV LVOT peak gradient (test code = 4295896305) mmHg LVOT peak VTI (test code = 2566635730) 20.6 cm LV V1 mean (test code = 8782218186) 62.50 cm/s Aortic valve mean velocity (test code = 4363719548) 110.5 cm/s Ao peak bereket (test code = 9724268412) 155.4 cm/s Ao VTI (test code = 5662387069) 30.7 cm AV area by cont VTI (test code = 4517781434) 2.3 cm2 AV area peak bereket (test code = 9000198752) 1.9 cm2 Ao max PG (test code = 3587122790) 9.70 mm[Hg] AV peak gradient (test code = 9705323641) mmHg AV valve area (test code = 2259728127) 2.25 cm2 AV mean gradient (test code = 1962114556) mmHg Radiology Study observation (narrative) (test code = 96405-8) RAFFY (test code = RAFFY) Formatting of this result is different from the original. ?Left?Ventricle: Left ventricle size is normal. Mild basal septal thickening. Normal wall motion. Normal systolic function with a visually estimated EF of 60 - 65%. There is impaired relaxation. ?Tricuspid?Valve: Insufficient regurgant jet to estimate RVSP. ?RA pressure is 0-5 mmHg. Left VentricleLeft ventricle size is normal. Mild basal septal thickening. Normal wall motion. Normal systolic function with a visually estimated EF of 60 - 65%. There is impaired relaxation.Right VentricleRight ventricle size is normal. Normal systolic function.Left AtriumLeft atrium size is normal.Right AtriumRight atrium size is normal.Mitral ValveMildly thickened leaflets. Mild mitral annular calcification. Trace transvalvular regurgitation.Tricusp id ValveTricuspid valve structure is normal. Trace transvalvular regurgitation. Insufficient regurgant jet to estimate RVSP. RA pressure is 0-5 mmHg.Aortic ValveTricuspid. Mildly thickened cusps. Mildly calcified cusps.Pulmonic ValveNot well visualized.Ascending AortaAorta is normal in size.PericardiumThe pericardium is normal.Study DetailsStudy quality was adequate. A complete echocardiogram was performed using 2D, color flow Doppler and spectral Doppler. [facility] GLU[facility]SE (AUTOMATED)2022-07-06 16:49:42* Test Item Value Reference Range Interpretation Comme nts POCT GLU (test code = 8071358881) 377 mg/dL 70-110 H Lab Interpretation (test cod e = 96874-1) Abnormal [facility] GLUCOSE (AUTOMATED)2022-07-06 12:45:06* Test Item Value Reference Range Interpretation Comme nts POCT GLU (test code = 0365441808) 333 mg/dL 70-110 H Lab Interpretation (test cod e = 13632-1) Abnormal [facility] GLUCOSE (AUTOMATED)2022-07-06 06:10:16* Test Item Value Reference Range Interpretation Comme nts POCT GLU (test code = 4845173824) 362 mg/dL 70-110 H Lab Interpretation (test cod e = 82604-8) [facility]normal [facility]aleTROPONIN [id number] 02:36:00* Test Item Value Reference Range Interpretation Comme nts TROPONIN I (test code = 3476989087) <0.012 See_Comment [Automated message] The system which generated this result transmitted reference range: <=0.034 ng/mL. The reference range was not used to interpret this result as normal/abnormal. RAFFY (test code = RAFFY) Equal or Less than 0.034 ng/ml---Normal?Not e: Cardiac troponin begins to rise 3-4 hours after the onset of ischemia. Repeat in 4-6 hours if the sample was drawn within 3-4 hours of the onset of the symptom and found normal. Between 0.035 and 0.120 ng/mL--- Borderline. Questionable myocardial injury or necrosis?Note: Serial measurement may be necessary to confirm or exclude the diagnosis of myocardial injury or necrosis; Clinical correlation (symptoms, EKGs, imaging studies, and others) required; Repeat in 4-6 hours if clinically indicated.? Equal or Higher than 0.121 ng/mL---Abnormal. Myocardial Injury or Necrosis Likely? Biotin has been reported to cause a negative bias, interpret results relative to patient's use of biotin.? ? Lab Interpretation (test code = 39053-3) Normal [facility]TROP[facility] [id number] 00:36:00* Test Item Value Reference Range Interpretation Comme nts TROPONIN I (test code = 8461241839) <0.012 See_Comment [Automated message] The system which generated this result transmitted reference range: <=0.034 ng/mL. The reference range was not used to interpret this result as normal/abnormal. RAFFY (test code = RAFFY) Equal or Less than 0.034 ng/ml---Normal?Not e: Cardiac troponin begins to rise 3-4 hours after the onset of ischemia. Repeat in 4-6 hours if the sample was drawn within 3-4 hours of the onset of the symptom and found normal. Between 0.035 and 0.120 ng/mL--- Borderline. Questionable myocardial injury or necrosis?Note: Serial measurement may be necessary to confirm or exclude the diagnosis of myocardial injury or necrosis; Clinical correlation (symptoms, EKGs, imaging studies, and others) required; Repeat in 4-6 hours if clinically indicated.? Equal or Higher than 0.121 ng/mL---Abnormal. Myocardial Injury or Necrosis Likely? Biotin has been reported to cause a negative bias, interpret results relative to patient's use of biotin.? ? Lab Interpretation (test code = 78923-3) [facility]2019-08-09 00:26:00* Test Item Value Reference Range Interpretation Comme nts APPEARANCE (test code = 7902346085) Clear Clear COLOR (test code = 5250550591) Yellow Yellow PH (test code = 2729451475) 4.8-8.0 SP GRAVITY (test code = 4626528492) >=1.030 1.003-1.030 GLU U QUAL (test code = 9816087949) Negative Negative BLOOD (test code = 3866986603) Negative Negative KETONES (test code = 5922055630) Trace Negative A PROTEIN (test code = 2887-8) Negative Negative UROBILIN (test code = 3807048998) 0.2 mg/dL See_Comment [Automated messa ge] The system which generated this result transmitted reference range: 0-1.0 mg/dL. The reference range was not used to interpret this result as normal/abnormal. BILIRUBIN (test code = 1070592008) Negative Negative NITRITE (test code = 2348962396) Negative Negative LEUK YVETTE (test code = 1531818360) Negative Negative RBC/HPF (test code = 4838928174) See_Comment [Automated [employer]rb[employer] ge] The system which generated this result transmitted reference range: 0 - 3 HPF. The reference range was not used to interpret this result as normal/abnormal. WBC/HPF (test code = 3752202994) See_Comment [Automated [employer]rb[employer] ge] The system which generated this result transmitted reference range: 0 - 5 HPF. The reference range was not used to interpret this result as normal/abnormal. BACTERIA (test code = 2176694793) Negative Negative SQ EPITH (test code = 3984030479) HPF Lab Interpretation (test code = 92198-2) Abnormal [facility]. METABOLIC PANEL (87987)2019-06-13 00:25:00* Test Item Value Reference Range Interpretation Comme nts NA (test code = 1378485136) 141 mmol/L 135-145 K (test code = 5011867496) 5.0 mmol/L 3.5-5 CL (test code = 1360282410) 105 mmol/L 98-108 CO2 TOTAL (test code = 0757849619) 21 mmol/L 23-31 L AGAP (test code = 0268548165) 2-16 BUN (test code = 4084870370) 37 mg/dL 7-23 H GLUCOSE (test code = 5876480634) 186 mg/dL 70-110 H CREATININE (test code = 8079323277) 0.96 mg/dL 0.5-1.04 TOTAL BILI (test code = 2572425698) 0.3 mg/dL 0.1-1.1 CALCIUM (test code = 7631307237) 9.8 mg/dL 8.6-10.6 T PROTEIN (test code = 5727197463) 8.2 g/dL 6.3-8.2 ALBUMIN (test code = 4035664261) 4.7 g/dL 3.5-5 ALK PHOS (test code = 5126394394) 80 U/L 34-122 ALT(SGPT) (test code = 2198718564) 24 U/L 9-51 AST(SGOT) (test code = 3932828591) 33 U/L 13-40 eGFR Calculation (Non-) (test code = 5911480311) mL/min/1.73m2 eGFR Calculation () (test code = 7288329949) mL/min/1.73m2 RAFFY (test code = RAFFY) Association of Glomerular Filtration Rate (GFR) and Staging of Kidney Disease*+ + + +| GFR (mL/min/1.73 m2)?| With Kidney Damage?|?Without Kidney Damage+ --------+ --------+ +|?>90?|?S tage one?|? Normal?+ ---------+ ---------+ +|?60-89? |?Stage two?|? Decreased GFR? + --+ --+ ------+|?30-59?|?Stage three?|? Stage three? + --+ --+ ------+|?15-29?|?Stage four? |? Stage four??+ --------+ --------+ +|?<15 (or dialysis)?|?Stage five? |? Stage five?+ -------+ -------+ +*Each stage assumes the associated GFR level has been in effect for at least three months.?Stages 1 to 5, with or without kidney disease, indicate chronic kidney disease.Notes: Determination of stages one and two (with eGFR >59mL/min/1.73 m2) requires estimation of kidney damage for at least three months as defined by structural or functional abnormalities of the kidney, manifested by either:Pathological abnormalities or Markers of kidney damage (including abnormalities in the composition of the blood or urine or abnormalities in imaging tests). Lab Interpretation (test code = 44227-3) [facility]2019-08-09 00:25:00* Test Item Value Reference Range Interpretation Comme nts MAGNESIUM (test code = 3249866572) 1.5 mg/dL 1.7-2.4 L Lab Interpretation (test cod e = 17837-8) [facility]normal [facility]aleCBC WITH [id number] 00:24:00* Test Item Value Reference Range Interpretation Comme nts WBC (test code = 6690-2) See_Comment H [Automated [employer] Exo] The system which generated this result transmitted reference range: 4.30 - 11.10 10*3/?L. The reference range was not used to interpret this result as normal/abnormal. RBC (test code = 789-8) See_Comment [Automated [employer] Exo] The system which generated this result transmitted reference range: 3.93 - 5.25 10*6/?L. The reference range was not used to interpret this result as normal/abnormal. HGB (test code = 718-7) 14.8 g/dL 11.6-15 HCT (test code = 4544-3) 42.4 % 35.7-45.2 MCV (test code = 787-2) 90.6 fL 80.6-95.5 MCH (test code = 785-6) 31.6 pg 25.9-32.8 MCHC (test code = 786-4) 34.9 g/dL 31.6-35.1 RDW-SD (test code = 06970-9) 39.8 fL 39-49.9 RDW-CV (test code = 788-0) 12.1 % 12-15.5 PLT (test code = 777-3) See_Comment [Automated messa ge] The system which generated this result transmitted reference range: 166 - 358 10*3/?L. The reference range was not used to interpret this result as normal/abnormal. MPV (test code = 53540-5) 10.9 fL 9.5-12.9 NRBC/100 WBC (test code = 8393644808) See_Comment [Automated Pikhub ssage] The system which generated this result transmitted reference range: 0.0 - 10.0 /100 WBCs. The reference range was not used to interpret this result as normal/abnormal. NRBC x10^3 (test code = 3239625924) <0.01 See_Comment [Automated messa ge] The system which generated this result transmitted reference range: 10*3/?L. The reference range was not used to interpret this result as normal/abnormal. GRAN MAT (NEUT) % (test code = 770-8) 45.0 % IMM GRAN % (test code = 4771360266) 0.30 % LYMPH % (test code = 736-9) 45.9 % MONO % (test code = 5905-5) 6.4 % EOS % (test code = 713-8) 1.8 % BASO % (test code = 706-2) 0.6 % GRAN MAT x10^3(ANC) (test code = 5107804552) 5.38 10*3/uL 1.88-7.09 IMM GRAN x10^3 (test code = 7948796161) 0.03 10*3/uL 0-0.06 LYMPH x10^3 (test code = 731-0) 5.49 10*3/uL 1.32-3.29 H MONO x10^3 (test code = 742-7) 0.76 10*3/uL 0.33-0.92 EOS x10^3 (test code = 711-2) 0.22 10*3/uL 0.03-0.39 BASO x10^3 (test code = 704-7) 0.07 10*3/uL 0.01-0.07 Lab Interpretation (test code = 46360-3) [facility]XR CHEST 2 [id number] 00:20:37No acute cardiopulmonary abnormality. Beth Roy MD., have reviewed this study and agree with theabove report.EXAM: XR CHEST 2 VW HISTORY: chest pain COMPARISON: Chest x-ray 11/13/2018 FINDINGS: The lungs are clear. No focal consolidation, pleural effusion orpneumothorax is seen. The cardiac silhouette is normal in size. No acute bony abnormality. [facility], Radiant Results Inft User - 06/12/2019 7:22 PM CDTEXAM: XR CHEST 2 VWHISTORY: chest pain COMPARISON: Chest x-ray 11/13/2018FINDINGS:The lungs are clear. No focal consolidation, pleural effusion orpneumothorax is seen. The cardiac silhouette is normal in size.No acute bony abnormality.IMPRESSIONNo acute cardiopulmonary abnormality.Rigo Roy MD., have reviewed this study and agree with theabove report.[facility] Consult Notes Date/Time Note Provider Source 2024-08-22 15:00:00 Associated Order(s): CONSULT PS PASTORAL CARE Manufacturing Worker visited with the patient following consult for spiritual support. The patient at this time appeared lying down in bed and further shared her leanna tradition. The patient during the visit mentioned that she had come over from the [facility] and that she stays at [place]. The patient mentioned she is just thinking about a lot of things and is getting stressed. Patient also said she gets emotional very fast but is trying her best to stay positive during this difficult time. The patient at this time requested for the bindery machine feeder offbearer to say a prayer for healing, for peace and for strength and the same was provided by the bindery machine feeder offbearer. The patient appreciated the bindery machine feeder offbearer visit and welcomed further visits as well. Chaplain Juanito Puente MDiv, [facility] Department of Pastoral Care Pager: [phone] Juanito Puente [facility] 2024-08-22 08:42:23 Associated Order(s): CONSULT CARDIOLOGY [facility] Cardiology Consult PCP: PATIENT DOES NOT HAVE A PCP Date of Service: 08/22/2024 CHIEF COMPLAINT/reason for consult: Chest pain, troponin elevation HISTORY OF PRESENT ILLNESS This is a 64 years old female with past medical history of cigarette smoker, diabetes, hypertension and COPD. For the past months she has been having episodes of left-sided chest pain. The chest pain is usually nonexertional, radiating to the left arm, associated Weihs dyspnea and posterior neck pain. The chest pain seems to be worse while laying on the left side. No exertional chest pain. Sometimes the chest pain is worse with deep breaths. EKG showed no acute changes. Troponin was slightly elevated. BNP was elevated as well. Chest x-ray was clear. PAST MEDICAL HISTORY Past Medical History: Diagnosis Date Diabetes No past surgical history on file. No family history on file. ALLERGIES No Known Allergies MEDICATIONS No current facility-administered medications on file prior to encounter. Current Outpatient Medications on File Prior to Encounter Medication Sig Dispense Refill diclofenac 50 mg tablet Take 1 tablet by mouth 3 (three) times daily as needed for Pain (scale 7-10) for up to 15 doses. 15 tablet 0 methylPREDNISolone 4 mg tablets Take by mouth SEE-INSTRUCTIONS. follow package directions 21 Each 0 cyclobenzaprine 5 mg tablet Take 1 tablet by mouth in the morning and 1 tablet at noon and 1 tablet in the evening. 30 tablet 0 SOCIAL HISTORY Social History Socioeconomic History Marital status: Tobacco Use Smoking status: Every Day Types: Cigarettes Smokeless tobacco: Never Substance and Sexual Activity Alcohol use: No Alcohol/week: 0.0 standard drinks of alcohol REVIEW OF SYSTEMS At least 10 systems reviewed, negative except as mentioned in HPI PHYSICAL EXAMINATION Vitals: 08/22/24 0500 08/22/24 0600 08/22/24 0743 08/22/24 0745 BP: (!) 141/79 126/75 112/80 Pulse: 81 80 87 88 Resp: 20 20 Temp: 36.7 ?C (98 ?F) SpO2: 95% 94% 96% 96% Weight: Height: Constitutional: alert and oriented x 3 (person, place and date/time); no apparent distress ENT: normocephalic atraumatic, supple, no lymphadenopathy, no bruits, no JVD Lungs: clear to auscultation bilaterally Cardiovascular: S1, S2 normal, regular; no murmurs, rubs or gallops GI: soft; non-tender; non-distended; normoactive bowel sounds : not examined Musculoskeletal: Extremities: no clubbing, cyanosis, or edema Skin: no rashes Neuro: no focal deficits LABS - reviewed pertinent labs as below: CBC BMP PT/INR WBC (10*3/?L) Date Value 08/22/2024 10.17 NA (mmol/L) Date Value 08/22/2024 133 (L) No results found for: "PT" PLT (10*3/?L) Date Value 08/22/2024 202 K (mmol/L) Date Value 08/22/2024 4.2 INR (no units) Date Value 08/22/2024 1.0 HGB (g/dL) Date Value 08/22/2024 15.2 (H) BUN (mg/dL) Date Value 08/22/2024 21 HCT (%) Date Value 08/22/2024 44.1 CREATININE (mg/dL) Date Value 08/22/2024 0.43 (L) LIPID PROFILE GLUCOSE (mg/dL) Date Value 08/22/2024 245 (H) CHOL (mg/dL) Date Value 07/06/2022 169 TSH LDL CHOL (no units) Date Value 07/06/2022 Comment: Unable to calculate LDL due to elevated triglyceride level greater than 400 mg/dL. No results found for: "TSH" CARDIAC ENZYMES HDL (mg/dL) Date Value 07/06/2022 26 (L) No results found for: "CK" TRIG (mg/dL) Date Value 07/06/2022 426 (H) LFTs No results found for: "CKMB" AST(SGOT) (U/L) Date Value 08/22/2024 26 TROPONIN I (ng/mL) Date Value 08/22/2024 0.086 (H) ALT(SGPT) (U/L) Date Value 06/12/2019 24 ALTv (U/L) Date Value 08/22/2024 19 No results found for: "BNP" IMAGING - reviewed, pertinent results as below: Chest x-ray-clear EKG: Normal sinus rhythm, anterior Q waves ASSESSMENT/PLAN Principal Problem: Chest pain, unspecified type Active Problems: Essential hypertension Type 2 diabetes mellitus with other specified complication Dyslipidemia COPD (chronic obstructive pulmonary disease) Troponin I above reference range Cigarette smoker Elevated brain natriuretic peptide (BNP) level Chest pain-atypical chest pain but with some concerning features. The chest pain seems to be positional and nonexertional. EKG showed no acute ST changes but Q wave in V3 is new. Continue aspirin and Lovenox. Echocardiogram to assess ejection fraction and wall motion. Will determine the need for heart cath versus stress test later. Troponin elevation-it is unclear type I versus type II myocardial infarction. Echocardiogram to assess ejection fraction and wall motion. Continue antiplatelet and anticoagulation. Recommend to initiate high intensity statins and beta-rell. We will determine the need for heart cath after echocardiogram. Hyperlipidemia-given history of diabetes, recommend high intensity Lipitor. Repeat fasting lipid panel. BNP elevation-no evidence of volume overload on exam and chest x-ray. Echocardiogram to assess ejection fraction and hemodynamics. Cigarette smoker-recommend smoking cessation. Thank you for allowing us to participate in the care of your patient. Please feel free to contact us for any questions or if we can be of further assistance. Tammy Gray MD, FACC, DOUGLAS Heat Treater Head Division of Cardiovascular Medicine [facility] History and Physical Notes Date/Time Note Provider Source 2024-08-23 16:47:14 MEDICINE [facility] ADMIT H&P PCP: PATIENT DOES NOT HAVE A PCP Date of Service: 08/23/2024 CHIEF COMPLAINT: left-sided chest pain Subjective History of Present Illness Gary Ren is a 64 y/o woman with T2DM (A1c 10.9% in 08/2024), tobacco use, ?COPD (no PFTs on file) presenting as a transfer from [place] for left heart cath. Chief complaint of left-sided chest pain. Per patient, says she has been feeling left-sided chest pain on and off for the past year that is worsening in severity. She says it feels like "bubbles and fish floating around in her left breast" sometimes feels sharp and stabbing, sometimes feels throbbing. This pain is associated with left arm numbness. However, she experienced numbness in her left arm and left leg today, which is what prompted her to come to the ED. Patient says the pain only occurs when sitting or lying down and is associated with mental stress. Also worsened by deep breaths. Says her life has been very stressful as she is having many problems with her . The pain lasts for several minutes before resolving in its own. Denies any pain with exercise or other exertion. She does endorse SOB with exercise though, but this has been consistent the past several years. Of note, patient was admitted to [facility] yesterday but left AMA when told she would need to stay over the weekend for C on Sunday. She came back today due to persistent chest pain and now says she is willing to wait for the procedure. Says the pain is worse now, 10/10 in severity and described as a "shocking" sensation that radiates to her left arm and back. She expressed great anxiety over her current state, mentioning that she may leave again if her pain becomes unbearable. Patient reports smoking 0.5 packs of cigarettes a day for 50 years (25 pack/year history). Endorses a history of heavy drinking but currently drinks a few glasses of wine and a few beers at night to help with sleep. Denies any illicit drug use. Family history unremarkable, and she does not remember much about her family's conditions. PAST MEDICAL HISTORY Past Medical History: Diagnosis Date Diabetes History reviewed. No pertinent surgical history. No family history on file. ALLERGIES No Known Allergies MEDICATIONS No current facility-administered medications on file prior to encounter. No current outpatient medications on file prior to encounter. SOCIAL HISTORY Social History Socioeconomic History Marital status: Number of children: 3 Highest education level: 7th grade Tobacco Use Smoking status: Every Day Types: Cigarettes Smokeless tobacco: Never Substance and Sexual Activity Alcohol use: No Alcohol/week: 0.0 standard drinks of alcohol REVIEW OF SYSTEMS Pertinent positives and negatives per above HPI. Objective PHYSICAL EXAMINATION Vitals: 08/23/24 1527 08/23/24 1643 BP: 136/75 128/64 Pulse: 92 97 Resp: 18 16 Temp: 36.7 ?C (98 ?F) SpO2: 96% 95% Weight: 70.3 kg (155 lb) Height: 1.651 m (5' 5") General: AOx4; visibly anxious Cardiac: RRR; no murmurs Chest: reproducible left-sided chest pain Resp: CTAB Abd: soft; NT; ND Ext: no peripheral edema Neuro: no focal deficits LABS/IMAGING - reviewed EKG: EKG from 08/22/2024 showing: NSR with HR 87; Qtc 481; possible left atrial enlargement; possible anterior infarct. EKG from today pending CHART REVIEW: pertinent information as below: Left AMA yesterday (08/22/2024) Assessment & Plan Gary Ren is a 64 year old female with PMH as listed above, admitted to the hospital with: Left-sided chest pain, reproducible on exam Possible costochondritis Troponin elevation, c/f NSTEMI Patient presenting from [place] with CC of left-sided chest pain, which is reproducible on exam and worse with deep breaths. Respiratory status stable on RA and patient is not tachycardic, low suspicion for PE as cause of chest pain. More likely to be costochondritis given history. EKG without new findings. Trop peaked at 0.086. Will plan for C on Sunday for ischemia evaluation given significant risk factors of uncontrolled diabetes and smoking history. - admit to white team - C on Sunday - continue heparin drip - continue aspirin 81 mg daily - continue atorvastatin 40 mg daily - continue metoprolol succinate 12.5 mg daily - telemetry Anxiety T2DM (A1c 10.9% in 08/2024) Uncontrolled. Has been out of home metformin for one month. - hold metformin - SSI, add scheduled insulin after assessing need - klonopin 0.5 mg TID Pain ImprovedTylenol Prophylaxis: DVT- heparin drip for ACS protocol Stress Ulcer: pantoprazole Code Status: Full Code Steve Hernández M.D., Ph.D. Internal Medicine, PGY-2 Associated attestation - Jeremy Ram MD - 08/25/2024 10:43 AM CDT I personally examined the patient on the date of service as stated and agree with Dr. Hernández's resident note. I actively participated in the decision-making process. Please see the resident's note for additional details. INTERNAL MEDICINE [facility] Notes Date/Time Note Provider Source 2025-03-19 11:35:54 Pt discharged with diagnosis of Lumbar radiculopathy. Printed and verbal instructions reviewed with and given to pt. Prescriptions given x 2. Pt verbalized understanding of teaching, medication, and recommended follow-up. Denies questions or concerns at this time. Pt ambulatory at discharge. Appears in no apparent distress. No ataxia noted. Refused DC VS. Melissa Nichols RN [facility] 2025-03-19 09:11:17 Pt arrived ambulatory with complaints of R hip pain radiating down to her foot x 2 days. Denies injury. Pt thinks her BGL is low. She hasn't taken her metformin this morning. BGL in triage [address] SCAN TECHNICIAN Ana Cristina Stringer RN [facility] 2025-02-16 07:36:21 Images from the original note were not included. Notes: Last Refilled: Name from pharmacy: METFORMIN HCL 500 MG TABLET Will file in chart as: METFORMIN 500 mg tablet Sig: TAKE 1 TABLET BY MOUTH EVERY MORNING AND TAKE 1 TABLET BY MOUTH EVERY EVENING WITH A MEAL Disp: 60 tablet Refills: 0 (Pharmacy requested: Not specified) Start: 02/16/2025 Class: eRX For: Chest pain, unspecified type Last ordered: 3 weeks ago (01/21/2025) by KAYLEE Arrington Last refill: 01/21/2025 Rx #: [id number] Endocrinology: Diabetes - Biguanides [id number]/16/2025 05:09 AM Protocol Details Valid encounter within last 12 months Cr is between 0 and 1.3 and within 360 days HBA1C within 180 days To be filled at: [facility] [id number] [address] Recent Visits Date Type Provider Dept 12/26/24 Office Visit Juju Weems PA [facility] Showing recent visits within past 540 days with a meds authorizing provider and meeting all other requirements Future Appointments No visits were found meeting these conditions. Showing future appointments within next 150 days with a meds authorizing provider and meeting all other requirements Salome Mendoza MA [facility] 2025-02-14 15:04:16 Pt discharged with diagnosis of CP, hypomagnesemia, and neuropathy. Printed and verbal instructions reviewed with and given to pt. Prescriptions given x 1. Pt verbalized understanding of teaching, medication, and recommended follow-up. Denies questions or concerns at this time. Pt ambulatory at discharge. Appears in no apparent distress. No ataxia noted. NAT [facility] 2025-02-14 12:07:28 Pt to ED CO Chest pressure and SOB starting last night. Reports hx of heart attack. In process of establishing care with cardiology. Also reports LLE pain. NAT Melissa Nichols RN [facility] 2025-02-14 12:03:00 Associated Order(s): EKG-12 Lead ROUTINE ONCE Pre-Procedure Diagnose(s): Chest pain, unspecified type Post-Procedure Diagnose(s): Chest pain, unspecified type [facility] Emergency Department Note Patient Name: Gary Ren Date of : 1960 64 year old female Treatment Room: TR9/9 Primary Care Physician: PATIENT DOES NOT HAVE A PCP Patient Escorted by: Self [9] Mode of Arrival: Personal means [1] EMS Treatment Prior to ED Arrival: CT SCAN TECHNICIAN treatment: None Travel and Exposure Screening: Symptoms Does patient have any of these symptoms?: (not recorded) Exposure Screening Has patient had contact with someone with a communicable disease in the last month?: (not recorded) Diseases exposed to:: (not recorded) Is Patient ?: (not recorded) Exposure Date: (not recorded) Chief Complaint: Chief Complaint Patient presents with Chest Pain History of Present Illness: The patient presents from home for evaluation for chest pain that started yesterday evening. She reports her pain kept her up all night long and continues today. No radiation of pain to her back although it does radiate to her sides. No change in the pain with exertion or deep breathing. No medication tried for her pain at home. She reports a history of diabetes, coronary disease, COPD as well as a previous MN in the past but has never had a cardiac stent placed. She is still a smoker. Slight cough but no fevers or URI symptoms. No sick contacts. Here for evaluation. Past Medical History/Immunizations: Past Medical History: Diagnosis Date CAD (coronary artery disease) Carotid artery stenosis Diabetes NSTEMI (non-ST elevated myocardial infarction) Tetanus received in last 5 years: Unknown Childhood immunizations: Up-to-date Allergies: No Known Allergies Past Social History: Tobacco Use Some Days; Types: Cigarettes Smokeless Tobacco: Never used smokeless tobacco. Alcohol Use No. Past Surgical History: Past Surgical History: Procedure Laterality Date TONSILLECTOMY Review of Systems: Review of Systems Constitutional: Negative for chills and fever. Respiratory: Negative for cough and shortness of breath. Cardiovascular: Positive for chest pain. Gastrointestinal: Negative for abdominal pain. Genitourinary: Negative for dysuria. Musculoskeletal: Negative for arthralgias, neck pain and neck stiffness. Skin: Negative for wound. Neurological: Negative for dizziness. Psychiatric/Behavioral: Negative for agitation. Endocrine: Negative for goiter. Physical Exam: ED Triage Vitals [02/14/25 1208] Weight 77.1 kg (170 lb) Actual or estimated Estimated by patient/family report Height 1.651 m (5' 5") BP (!) 160/79 Pulse 108 Resp 17 Temp 36 ?C (96.8 ?F) Temp source Oral SpO2 96 % Measured on Room air Physical Exam Vitals and nursing note reviewed. Constitutional: Appearance: Normal appearance. She is normal weight. HENT: Head: Normocephalic and atraumatic. Cardiovascular: Rate and Rhythm: Normal rate and regular rhythm. Pulses: Normal pulses. Pulmonary: Effort: Pulmonary effort is normal. No respiratory distress. Breath sounds: No stridor. No wheezing or rhonchi. Chest: Chest wall: No tenderness. Abdominal: General: There is no distension. Palpations: Abdomen is soft. Tenderness: There is no abdominal tenderness. There is no guarding. Hernia: No hernia is present. Musculoskeletal: General: Normal range of motion. Cervical back: Normal range of motion and neck supple. Skin: General: Skin is warm and dry. Neurological: General: No focal deficit present. Mental Status: She is alert and oriented to person, place, and time. Radiology: XR CHEST 1 VW Final Result XR CHEST 1 VW 02/14/2025 12:22 PM HISTORY: chest pain . COMPARISON: Chest radiograph dated 09/26/2024. FINDINGS: Cardiomediastinal silhouette is unremarkable. No focal lung capacity, sizable pleural effusion or pneumothorax. No acute osseous abnormality. Lab Results: Lab Results CBC WITH DIFF - Abnormal Result Value Ref Range WBC 10.21 4.30 - 11.10 10*3/?L RBC 4.92 3.93 - 5.25 10*6/?L HGB 15.3 (*) 11.6 - 15.0 g/dL HCT 45.9 (*) 35.7 - 45.2 % MCV 93.3 80.6 - 95.5 fL MCH 31.1 25.9 - 32.8 pg MCHC 33.3 31.6 - 35.1 g/dL RDW-SD 45.5 39.0 - 49.9 fL RDW-CV 13.2 12.0 - 15.5 % PLT 228 166 - 358 10*3/?L MPV 10.9 9.5 - 12.9 fL NRBC/100 WBC 0.0 0.0 - 10.0 /100 WBCs NRBC x10 3 <0.01 10*3/?L GRAN MAT (NEUT) % 56.6 % IMM GRAN % 0.30 % LYMPH % 33.5 % MONO % 7.5 % EOS % 1.4 % BASO % 0.7 % GRAN MAT x10 3 (ANC) 5.78 1.88 - 7.09 10*3/uL IMM GRAN x10 3 0.03 0.00 - 0.06 10*3/uL LYMPH x10 3 3.42 (*) 1.32 - 3.29 10*3/uL MONO x10 3 0.77 0.33 - 0.92 10*3/uL EOS x10 3 0.14 0.03 - 0.39 10*3/uL BASO x10 3 0.07 0.01 - 0.07 10*3/uL COMP. METABOLIC PANEL (41694) - Abnormal NA 137 135 - 145 mmol/L K 3.9 3.5 - 5.0 mmol/L CL 100 98 - 108 mmol/L CO2 TOTAL 28 23 - 31 mmol/L AGAP 9 2 - 16 BUN 21 7 - 23 mg/dL GLUCOSE 329 (*) 70 - 110 mg/dL CREATININE 0.54 0.50 - 1.04 mg/dL TOTAL BILI 0.9 0.1 - 1.1 mg/dL CALCIUM 8.7 8.6 - 10.6 mg/dL T PROTEIN 7.3 6.3 - 8.2 g/dL ALBUMIN 4.4 3.5 - 5.0 g/dL ALK PHOS 92 34 - 122 U/L ALTv 16 5 - 35 U/L AST(SGOT) 34 13 - 40 U/L eGFR 101.7 mL/min/1.73m2 MAGNESIUM - Abnormal MAGNESIUM 1.5 (*) 1.7 - 2.4 mg/dL TROPONIN I - Normal TROPONIN I 0.005 <=0.034 ng/mL EKG: If EKG completed, see Procedure Note. Orders and Treatments: Orders Placed This Encounter Procedures XR CHEST 1 VW CBC WITH DIFF COMP. METABOLIC PANEL (95799) TROPONIN I Magnesium Discharge Follow-up: PCP PATIENT DOES NOT HAVE A PCP; 1 Week Orders Placed This Encounter Medications LORazepam (ATIVAN) injection 1 mg aspirin chewable tablet 324 mg magnesium sulfate in water 2 gram/50 mL (4 %) infusion 2 g benzonatate (TESSALON PERLES) capsule 100 mg gabapentin 100 mg capsule First Provider Eval: ED Events Date/Time Event User Comments 02/14/25 1205 Medical Screening Begins DEMI DE LA TORRE DO -- 02/14/25 1205 First Provider Evaluation DEMI DE LA TORRE DO -- ED COURSE Diagnosis/Impression as of 02/14/25 1547 Chest pain, unspecified type Hypomagnesemia Neuropathy Procedures: EKG-12 Lead ROUTINE ONCE Date/Time: 02/14/2025 12:20 PM Performed by: Demi De La Torre DO Authorized by: Demi De La Torre DO ECG interpreted by ED Physician in the absence of a nuclear control room operator: yes Interpretation: Interpretation: normal Rate: ECG rate: 103 ECG rate assessment: normal Rhythm: Rhythm: sinus rhythm Ectopy: Ectopy: none QRS: QRS axis: Normal QRS intervals: Normal QRS conduction: normal ST segments: ST segments: Normal T waves: T waves: normal Q waves: Abnormal Q-waves: not present MDM: Medical Decision Making The patient presents from home for evaluation for chest pain that started yesterday evening. She reports her pain kept her up all night long and continues today. No radiation of pain to her back although it does radiate to her sides. No change in the pain with exertion or deep breathing. No medication tried for her pain at home. She reports a history of diabetes, coronary disease, COPD as well as a previous MN in the past but has never had a cardiac stent placed. She is still a smoker. Slight cough but no fevers or URI symptoms. No sick contacts. Vital signs are stable in the ER. Her heart is regular rhythm. Her lungs are clear bilaterally. She has no pitting edema to her bilateral legs. She does appear anxious throughout the examination. Her EKG shows a normal sinus rhythm, no STEMI. The patient does have risk factors for ACS however her presentation is atypical for this. Will check laboratory studies including troponin. Will also obtain a chest x-ray and provide the patient with pain medication. Final disposition pending. 5546 -the patient is doing well here in the ER. Her laboratory studies show a low magnesium level which was replaced here in the ER. She also has hyperglycemia but no evidence of DKA. Her troponin is unremarkable. Her chest x-ray shows no acute cardiopulmonary issues. She remained stable here in the ER and is okay for discharge home with PCP follow-up. Problems Addressed: Chest pain, unspecified type: acute illness or injury Hypomagnesemia: acute illness or injury Neuropathy: acute illness or injury Amount and/or Complexity of Data Reviewed Labs: ordered. Decision-making details documented in ED Course. Radiology: ordered and independent interpretation performed. Decision-making details documented in ED Course. ECG/medicine tests: ordered and independent interpretation performed. Decision-making details documented in ED Course. Risk OTC drugs. Prescription drug management. Parenteral controlled substances. Flowsheet Documentation: Scoring Tools: No data recorded Disposition/Condition: ED Disposition ED Disposition Discharge Condition Stable Comment -- Discharge Medications: Patient's Medications START taking these medications GABAPENTIN 100 MG CAPSULE Take 1 capsule by mouth in the morning and 1 capsule at noon and 1 capsule in the evening. Do all this for 30 days. CONTINUE taking these medications which have NOT CHANGED ASPIRIN 81 MG EC TABLET Take 1 tablet by mouth in the morning. METFORMIN 500 MG TABLET TAKE 1 TABLET BY MOUTH 2 TIMES A DAY IN THE MORNING AND IN THE EVENING WITH A MEAL START taking Modified Medications as Prescribed No medications on file STOP taking these medications No medications on file Follow-up: Electronically signed by: Demi De La Torre DO 02/14/25 1457 [facility] 2024-09-26 06:04:08 Pt given printed and verbal discharge instructions regarding parathesias, DM2, situational anxiety Pt verbalized understanding of instructions, pt awake alert oriented, resp reg unlabored, skin w/d, color appropriate for race, moves all ext well,pt encouraged to follow up with pcp Advised to seek medical attention for new/prolonged/worsening of symptoms PIV d'cd, dressing to site, catheter in tact. Awake, alert oriented, resp reg unlabored, skin w/d, pt leaving amb with steady gait, in no apparent distress GER PROGRAM [facility] 2024-09-26 03:45:26 Pt arrived ambulatory C/o bilateral arms tingling, burning, and itching radiates to neck. Took an old flexeril with no relief. Hx: cardiac, blood thinners, htn, anxiety, DM2 A Hassan RN [facility] 2024-09-26 03:40:00 [facility] Emergency Department Note Patient Name: Gary Ren Date of : 1960 64 year old female Treatment Room: [place] [address] Primary Care Physician: PATIENT DOES NOT HAVE A PCP Patient Escorted by: Self [9] Mode of Arrival: Personal means [1] EMS Treatment Prior to ED Arrival: CT SCAN TECHNICIAN treatment: Other (comment) CT SCAN TECHNICIAN treatment comments: Flexeril Travel and Exposure Screening: Symptoms Does patient have any of these symptoms?: (not recorded) Exposure Screening Has patient had contact with someone with a communicable disease in the last month?: (not recorded) Diseases exposed to:: (not recorded) Is Patient ?: (not recorded) Exposure Date: (not recorded) Chief Complaint: Chief Complaint Patient presents with TINGLING History of Present Illness: Gary Ren is a 64 year old female who presents to the ED for evaluation tingling and burning sensation to bilateral hand that began about 4:30 PM yesterday. Pt reports that she applied Vicks to the hands and the Vicks helped to improve her sym[toms. Also reports mild SOB. No focal weakness. No HAN. No voice change, No sore throat. No fever. Pt reports that she was having an argument with her spouse prior to onset of her symptoms History provided by: Patient, medical records and spouse retina subspecialist used: No Past Medical History/Immunizations: Past Medical History: Diagnosis Date Diabetes COPD CHF HTN Panic Attack Anxiety Diabetic Neuropathy Tetanus received in last 5 years: No Childhood immunizations: Up-to-date Allergies: No Known Allergies Past Social History: Tobacco Use Every Day; Types: Cigarettes Smokeless Tobacco: Never used smokeless tobacco. Alcohol Use No. Past Surgical History: Tonsillectomy Review of Systems: Review of Systems Constitutional: Negative. Negative for diaphoresis, fatigue and fever. HENT: Negative. Eyes: Negative. Respiratory: Negative. Breasts: Negative. Cardiovascular: Negative. Gastrointestinal: Negative. Genitourinary: Negative. Musculoskeletal: Negative. Skin: Negative. Neurological: Positive for numbness. Negative for dizziness, tremors, seizures, syncope, facial asymmetry, speech difficulty, weakness, light-headedness and headaches. Psychiatric/Behavioral: The patient is nervous/anxious. All other systems reviewed and are negative. Endocrine: Endocrine negative Physical Exam: ED Triage Vitals [09/26/24 0350] Weight 77.1 kg (170 lb) Actual or estimated Actual Height 1.651 m (5' 5") BP (!) 150/82 Pulse 88 Resp 17 Temp 36.7 ?C (98 ?F) Temp source Oral SpO2 97 % Measured on Room air Physical Exam Vitals and nursing note reviewed. Constitutional: General: She is not in acute distress. Appearance: Normal appearance. She is well-developed and normal weight. She is not ill-appearing or toxic-appearing. HENT: Head: Normocephalic and atraumatic. Nose: Nose normal. No congestion or rhinorrhea. Mouth/Throat: Mouth: Mucous membranes are moist. Pharynx: Oropharynx is clear. No oropharyngeal exudate or posterior oropharyngeal erythema. Eyes: General: No scleral icterus. Right eye: No discharge. Left eye: No discharge. Extraocular Movements: Extraocular movements intact. Conjunctiva/sclera: Conjunctivae normal. Pupils: Pupils are equal, round, and reactive to light. Neck: Thyroid: No thyromegaly. Cardiovascular: Rate and Rhythm: Normal rate and regular rhythm. Pulses: Normal pulses. Heart sounds: Normal heart sounds. No murmur heard. Pulmonary: Effort: Pulmonary effort is normal. No respiratory distress. Breath sounds: Normal breath sounds. No stridor. No wheezing, rhonchi or rales. Chest: Chest wall: No tenderness. Abdominal: General: Bowel sounds are normal. There is no distension. Palpations: Abdomen is soft. There is no mass. Tenderness: There is no abdominal tenderness. There is no right CVA tenderness, left CVA tenderness, guarding or rebound. Musculoskeletal: General: No swelling, tenderness, deformity or signs of injury. Normal range of motion. Cervical back: Normal range of motion and neck supple. No rigidity or tenderness. Right lower leg: No edema. Left lower leg: No edema. Lymphadenopathy: Cervical: No cervical adenopathy. Skin: General: Skin is warm and dry. Capillary Refill: Capillary refill takes less than 2 seconds. Coloration: Skin is not jaundiced or pale. Findings: No bruising, erythema, lesion or rash. Neurological: General: No focal deficit present. Mental Status: She is alert and oriented to person, place, and time. Cranial Nerves: No cranial nerve deficit. Sensory: No sensory deficit. Motor: No weakness or abnormal muscle tone. Coordination: Coordination normal. Gait: Gait normal. Deep Tendon Reflexes: Reflexes normal. Psychiatric: Behavior: Behavior normal. Thought Content: Thought content normal. Judgment: Judgment normal. Comments: Anxious Mood Radiology: CT HEAD WO CONTRAST Preliminary Result EXAM: CT HEAD WO CONTRAST HISTORY: 64 years-old Female; Provided indication: Mental status change, unknown cause . TECHNIQUE: Axial CT of the head was performed and reconstructed at 5 mm intervals. Coronal and sagittal reformatted images were generated. COMPARISON: CT head 08/25/2024 FINDINGS: The ventricles and cerebral sulci are normal in caliber and configuration. No midline shift or pathological extra-axial fluid collection is present. The basal cisterns are unremarkable. No acute intracranial hemorrhage or significant mass effect is visualized. No parenchymal attenuation abnormality is seen. The oconnor-white matter differentiation is preserved. The mastoid air cells and visualized paranasal air sinuses are clear. The calvarium and central skull base are unremarkable. IMPRESSION No acute intracranial abnormality. Preliminary Report Dictated by Resident: Finesse Ortiz XR CHEST 1 VW Preliminary Result EXAM: XR CHEST 1 VW COMPARISON: Chest x-ray 08/22/2024 HISTORY: palpitations IMPRESSION FINDINGS/IMPRESSION: The lung volumes are normal. No focal opacities. No pleural abnormalities are detected. The cardiac silhouette appears normal accounting for technique. No focal osseous lesions or acute osseous findings are detected. Preliminary Report Dictated by Resident: Finesse Ortiz Lab Results: Lab Results CBC WITH DIFF - Abnormal Result Value Ref Range WBC 9.62 4.30 - 11.10 10*3/?L RBC 4.49 3.93 - 5.25 10*6/?L HGB 14.2 11.6 - 15.0 g/dL HCT 41.0 35.7 - 45.2 % MCV 91.3 80.6 - 95.5 fL MCH 31.6 25.9 - 32.8 pg MCHC 34.6 31.6 - 35.1 g/dL RDW-SD 39.6 39.0 - 49.9 fL RDW-CV 11.9 (*) 12.0 - 15.5 % PLT 222 166 - 358 10*3/?L MPV 11.1 9.5 - 12.9 fL NRBC/100 WBC 0.0 0.0 - 10.0 /100 WBCs NRBC x10 3 <0.01 10*3/?L SEG % 45 33 - 76 % LYMPH % 44 14 - 54 % MONO % 8 (*) 0 - 4 % EOS % 3 0 - 3 % ANC 4.33 1.88 - 7.09 10*3/uL COMP. METABOLIC PANEL (46370) - Abnormal NA 135 135 - 145 mmol/L K 4.4 3.5 - 5.0 mmol/L CL 104 98 - 108 mmol/L CO2 TOTAL 25 23 - 31 mmol/L AGAP 6 2 - 16 BUN 16 7 - 23 mg/dL GLUCOSE 293 (*) 70 - 110 mg/dL CREATININE 0.44 (*) 0.50 - 1.04 mg/dL TOTAL BILI 0.5 0.1 - 1.1 mg/dL CALCIUM 8.8 8.6 - 10.6 mg/dL T PROTEIN 7.1 6.3 - 8.2 g/dL ALBUMIN 4.2 3.5 - 5.0 g/dL ALK PHOS 104 34 - 122 U/L ALTv 17 5 - 35 U/L AST(SGOT) 39 13 - 40 U/L eGFR 106.8 mL/min/1.73m2 TROPONIN I - Normal TROPONIN I <0.012 <=0.034 ng/mL Orders and Treatments: Orders Placed This Encounter Procedures CT HEAD WO CONTRAST XR CHEST 1 VW Cbc with Diff Comp. Metabolic Panel (83098) Troponin I No orders of the defined types were placed in this encounter. First Provider Eval: ED Events Date/Time Event User Comments 09/26/24354 Medical Screening Begins TOI CRAIG MD -- 09/26/24354 First Provider Evaluation TOI CRAIG MD -- ED COURSE Diagnosis/Impression as of 09/26/24 0552 Paresthesias Uncontrolled type 2 diabetes mellitus with hyperglycemia Situational anxiety Procedures: Procedures MDM: Medical Decision Making Gary Ren is a 64 year old female who presents tpo the ED with tnigling and numbness Problems Addressed: Paresthesias: acute illness or injury Situational anxiety: acute illness or injury Uncontrolled type 2 diabetes mellitus with hyperglycemia: chronic illness or injury Amount and/or Complexity of Data Reviewed Labs: ordered. Decision-making details documented in ED Course. Radiology: ordered and independent interpretation performed. Decision-making details documented in ED Course. Flowsheet Documentation: Scoring Tools: No data recorded Disposition/Condition: ED Disposition ED Disposition Discharge Condition Stable Comment -- Discharge Medications: Patient's Medications START taking these medications No medications on file CONTINUE taking these medications which have NOT CHANGED ASPIRIN 81 MG EC TABLET Take 1 tablet by mouth in the morning. ATORVASTATIN 40 MG TABLET Take 1 tablet by mouth at bedtime. CLOPIDOGREL 75 MG TABLET Take 1 tablet by mouth in the morning. ISOSORBIDE MONONITRATE 30 MG 24 HR TABLET Take 1 tablet by mouth in the morning and 1 tablet in the evening. METFORMIN 500 MG TABLET Take 1 tablet by mouth in the morning and 1 tablet in the evening. Take with meals. METOPROLOL SUCCINATE XL 25 MG 24 HR TABLET Take 1 tablet by mouth in the morning. START taking Modified Medications as Prescribed No medications on file STOP taking these medications No medications on file Follow-up: Electronically signed by: Toi Craig MD 09/26/2452 [facility] 2024-09-02 10:21:00 [id number] [place] [address] PATIENT NAME: GARY REN ADMIT DATE: 08/28/24 ACCOUNT NO: [id number] ROOM NO: G.DC6WS AGE: 64 REPORT TYPE: 360 - QUERY RESPONSE DOCUMENT SEX: F ADMITTING PHYSICIAN:Belen Zarate MD ATTENDING PHYSICIAN:Florian Timmons MD Provider Query QUERY TEXT: Condition General 360MD Query related questions should be directed to: [facility] Coding Query Help-line Based on your medical judgment and the clinical indicators listed below, can you identify the underlying cause of the patient's Chest pain (Anxiety, Hyperlipidemia, MSK pian, or other more appropriate diagnosis) The patient's Clinical Indicators include: Chest pain- ED PHYSICIAN RECORD 08/28/24. -BNP elevated at 930 Hospitalist Discharge Summary 08/29/2024 (5) -Serial troponins negative Hospitalist Discharge Summary 08/29/2024 (5) -D dimer normal Hospitalist Discharge Summary 08/29/2024 (5) -Telemetry monitoring Hospitalist Discharge Summary 08/29/2024 (5) -Lipid profile: Elevated triglycerides 432 Hospitalist Discharge Summary 08/29/2024 (5) -Dobutamine stress test done Hospitalist Discharge Summary 08/29/2024 (5) -Cardiology consulted Hospitalist Discharge Summary 08/29/2024 (5) -Patient started on long acting and short acting nitrates, Aspirin 81 mg daily, metoprolol, statin Hospitalist Discharge Summary 08/29/2024 (5) Anxiety- CARDIOLOGY CONSULTATION 08/28/24. Hyperlipidemia -Continue Atorvastatin 40 mg po qHS -Lipid panel cholesterol 162, LDL 89 COPD- ED PHYSICIAN RECORD 08/28/24. Asthma- DISCHARGE SUMMARY 08/29/24. Aspirin- MAR Lorazepam- MAR Options provided: -- Respond - Create new note now -- Dismiss - Not applicable / Not valid -- Dismiss - Clinically unable to determine / Unknown -- Assign to another provider QUERY RESPONSE: Provider was clinically unable to determine a response for this query Query created by: Chandu Magana on 09/02/2024 6:04 AM at 1021 PATIENT NAME: GARY REN BORA [facility] 2024-08-29 17:20:00 [id number] [address] PATIENT NAME: GARY RENENCIO ADMIT DATE: 08/28/24 ACCOUNT NO: [id number] ROOM NO: G.DC6WS AGE: 64 REPORT TYPE: eECHOCARDIOGRAM REPORT SEX: F ADMITTING PHYSICIAN:Belen Zarate MD ATTENDING PHYSICIAN:Florian Timmons MD *[facility] [address] [address] Transthoracic Echocardiogram Patient: Gary Ren Study Date: 08/28/2024 BP: 128 / 64 URN: [id number] Location: : 1960 Age: 64 Gender: F Height: 25.6 in / 65 cm Weight: 348.3 lb / 158 kg BMI/BSA: 374 kg/m 2 / 1.93 m 2 *Ordering Physician: * Yarely León *Interpreting Physician: * Dot Rios MD *Quilting Machine Helper: * Ana Powell Indications: Shortness of Breathe. Study data: Transthoracic echocardiogram. Procedure: A transthoracic echocardiogram was performed. Images were obtained using a [employer] cardiac ultrasound machine. Image quality was adequate. Complete 2D, complete spectral Doppler, and color Doppler. Location: Bedside. Patient status: Inpatient. Patient room number: 650. Study status: Routine. Heart rate: 80 bpm. Findings Left ventricle: The cavity size is normal. Wall thickness is mildly increased. Systolic function is normal. The estimated ejection fraction is 55-59%. Wall motion is normal; there are no regional wall motion PATIENT NAME: GARY REN abnormalities. Grade I diastolic dysfunction. Right ventricle: The cavity size is normal. Systolic function is normal. The estimated TAPSE is 1.8cm. Left atrium: The atrium is normal in size. Right atrium: The atrium is normal in size. Aorta: Aortic root: The root is normal-sized. Aortic valve: The valve is structurally normal. The valve is trileaflet. There is no evidence of stenosis. There is no regurgitation. Mitral valve: The valve is structurally normal. There is no evidence of stenosis. There is no regurgitation. Tricuspid valve: The valve is structurally normal. There is trivial regurgitation. Pulmonic valve: The valve is structurally normal. There is no regurgitation. Pericardium: A prominent pericardial fat pad is present. There is no pericardial effusion. Pulmonary arteries: The main pulmonary artery is normal-sized. Systemic veins: Inferior vena cava: The IVC is normal-sized. Respirophasic diameter changes are in the normal range (>= 50%). Measurements Left ventricle Value Ref MARTHA, LAX 4.6 cm 3.8 - 5.2 ESD, LAX 3.3 cm 2.2 - 3.5 FS, LAX 28 % 27 - 45 MARTHA major ax, A2C 7.4 cm --------- ESD major ax, A2C 6.7 cm --------- IVS, ED 1.0 cm 0.6 - 0.9 PW, ED 1.0 cm 0.6 - 0.9 IVS/PW, ED 1 --------- EF 55 % 54 - 74 E', lat lamar, TDI 6.1 cm/sec >=10.0 E/e', lat lamar, TDI 14 <=13 E', med lamar, TDI 7.1 cm/sec >=7.0 E/e', med lamar, TDI 12 --------- E', avg, TDI 6.6 cm/sec --------- E/e', avg, TDI 13 <=14 LVOT Value Ref Diam, S 2.02 cm --------- Area 3.2 cm 2 --------- Peak bereket, S 0.94 m/sec --------- Mean bereket, S 0.65 m/sec --------- VTI, S 16.2 cm --------- Peak grad, S 4 mm Hg --------- Mean grad, S 2 mm Hg --------- SV 52 ml --------- Qs 4.71 L/min --------- Qs/bsa 2.4 L/(min-m 2) --------- SV/bsa 27 ml/m 2 --------- PATIENT NAME: GARY RENIO Right ventricle Value Ref MARTHA, LAX 3.2 cm --------- TAPSE, MM 1.8 cm >=1.7 Pressure, S 10 mm Hg --------- RVOT Value Ref Peak v, S 0.7 m/sec --------- Peak grad, S 2 mm Hg --------- Left atrium Value Ref AP dim, ES 3.8 cm 2.7 - 3.8 Vol/bsa, S 24 ml/m 2 16 - 34 Vol/bsa, ES, 1-p A4C 20 ml/m 2 11 - 40 Vol, ES, 2-p 47 ml --------- Vol/bsa, ES, 2-p 24 ml/m 2 16 - 34 Vol/bsa, ES, A/L 20 ml/m 2 16 - 34 Right atrium Value Ref Estimated RAP 3 mm Hg --------- Aortic valve Value Ref Peak v, S 1.7 m/sec --------- Mean v, S 1.13 m/sec --------- VTI, S 27.1 cm --------- Mean grad, S 6 mm Hg --------- Peak grad, S 11.2 mm Hg --------- LVOT/AV, VTI ratio 0.6 --------- JAXSON, VTI 1.91 cm 2 --------- LVOT/AV, Vpeak ratio 0.56 --------- JAXSON, Vmax 1.79 cm 2 --------- Mitral valve Value Ref Mean v, D 0.88 m/sec --------- Peak E 0.86 m/sec --------- Peak A 1.51 m/sec --------- VTI leaflet coapt 29.1 cm --------- MiV/LVOT VTI 1.8 --------- Decel time 282 ms --------- Mean grad, D 3 mm Hg --------- Peak grad, D 9.2 mm Hg --------- Peak E/A ratio 0.57 --------- Tricuspid valve Value Ref TR peak v 1.3 m/sec <=2.8 Peak RV-RA grad, S 7 mm Hg --------- Pulmonary artery Value Ref Pressure, S 5.9 mm Hg --------- Conclusions Summary: Left ventricle: The cavity size is normal. Wall thickness is mildly increased. Systolic function is normal. The estimated ejection fraction is PATIENT NAME: SUELLEN RENANA SAHNI 55-59%. Wall motion is normal; there are no regional wall motion abnormalities. Grade I diastolic dysfunction. Electronically signed by Dot Rios MD 08/29/2024 17:20 at 1720 PATIENT NAME: GARY REN [facility] 2024-08-29 17:08:00 [id number] [place] [address] PATIENT NAME: GARY REN ADMIT DATE: 08/28/24 ACCOUNT NO: [id number] ROOM NO: G.DC6WS AGE: 64 REPORT TYPE: eCARDIAC STRESS TEST SEX: F ADMITTING PHYSICIAN:Belen Zarate MD ATTENDING PHYSICIAN:Florian Timmons MD *[facility] [address] [place] [address] Stress Electrocardiography Dobutamine Patient: Gary Ren Study Date: 08/29/2024 BP: Location: URN: [id number] : 1960 Age: 64 Height: 0 in / 0 cm Gender: F Weight: 0 lb / 0 kg BMI/BSA: / *Interpreting Physician: * Dot Rios MD Nurse: Ottoniel Hernandez NP Indications: Chest Pain, Unspecified (R07.9). Conclusions Impressions: No ST changes or chest pain, See echocardiogram images. Study data: Location: Stress laboratory. Consent: The risks, benefits, and alternatives to the procedure were explained to the patient and informed consent was obtained. Study completion: The patient tolerated the procedure well. There were no complications. Procedure data: The patient arrived at the laboratory. A baseline ECG was recorded. Intravenous access was obtained. ECG and blood pressure measurements were monitored. Dobutamine stress test was performed. Dobutamine was administered. Exercise testing was performedthe DOBUTAMINE 2 protocol. The patient exercised for 10 min 3 sec, to a maximal work rate of 1 mets. Dobutamine infusion was begun at 5 mcg/kg per minute and increased until at PATIENT NAME: GARY REN BORA peak dose of 40 mcg/kg per minute. Echocardiographic images were obtained at baseline as well as at every dose change of dobutamine, at peak dose of dobutamine and in recovery. The maximal heart rate achieved was 133 beats per minute. This is 86% of the age predicted maximum heart rate. The maximum blood pressure was 164/82 mmHg. The ECG demonstrated no diagnostic ST-T abnormalities. Functional capacity could not be assessed because of the pharmacologic nature of this test. Baseline and recovery images were acquired and at peak dobutamine infusion, echocardiogram images were acquired. See echocardiogram report. Conclusion: 1. No symptoms of arm, chest or throat discomfort. 2. There were no diagnostic EKG changes for ischemia with Dobutamine infusion. 3. See echocardiogram images. 4. Normal heart rate and blood pressure response to dobutamine infusion. 5. No arrhythmias were noted. Cardiac stress table: + +---+---- --------+ + !Stage !HR !BP !Symptoms ! + +---+---- --------+ + !PREINFSN SUPINE !78 !132/76 (95) ! ! + +---+---- --------+ + !INFUSION 5 MCG !79 !149/84 (106)! ! + +---+---- --------+ + !INFUSION 10 MCG !74 !125/78 (94) ! ! + +---+---- --------+ + !INFUSION 20 MCG !95 !130/81 (97) ! ! + +---+---- --------+ + !INFUSION 30 MCG !120!171/78 (109)! ! + +---+---- --------+ + !INFUSION 40 MCG !133!164/82 (109)! ! + +---+---- --------+ + !POSTINFSN 3 MIN POS!126!141/72 (95) ! ! + +---+---- --------+ + !POSTINFSN 6 MIN POS!101!149/75 (100)! ! + +---+---- --------+ + !POSTINFSN 9 MIN POS!93 !142/78 (99) ! ! + +---+---- --------+ + !POSTINFSN 12MIN POS!90 !125/76 (92) ! ! + +---+---- --------+ + !Baseline !---! !No symptoms.! + +---+---- --------+ + Stress results: Maximal heart rate during stress was 133 bpm (86% of maximal predicted heart rate). The maximal predicted heart rate was 154 bpm. The target heart rate was 131 bpm. The target heart rate was achieved. The rate-pressure product for the peak heart rate and blood pressure was 12548 mm Hg/min. Stress ECG: There are no stress arrhythmias or conduction abnormalities. Quiroz scoring: exercise time of 10 min 3 sec; ; . PATIENT NAME: GARY REN Electronically signed by Dot Rios MD 08/29/2024 17:08 at 1708 PATIENT NAME: GARY REN [facility] 2024-08-29 13:40:00 [facility] Hospitalist Discharge Summary REPORT#:[id number] REPORT STATUS: Signed REPORT INITIALIZATION DATE:08/29/24 TIME: 1340 PATIENT: GARY REN UNIT #: [id number] [facility] AGE: 64 SEX: F ATTEND: Florian Timmons MD ADM AUTHOR: Mary Alice Simmons MD R1 REPT SERVICE DT/TIME: 08/29/24 1340 * ALL edits or amendments must be made on the electronic/computer document * Mary Alice Simmons 08/29/24 1340: General Information Date of admission: Observation Start Date: Date of admission: 08/28/24 Discharge date: 08/29/24 Discharge diagnosis: Chest pain Hospital course: Patient is a 64 year old female with PMH of COPD, asthma, DM and neuropathy, presented to the ED with complaints left sided chest pain and SOB. Patient stated she's had these symptoms on and off for a long time but they particularly worse last week on prompting her to go the ED. She first went to [facility] from where she was transferred to [facility] for ACS workup. She was scheduled to undergo a heart cath but left AMA when the procedure kept getting delayed. Patient has had persistent symptoms since then. Her chest pain radiates to her left arm and aggravates with stress and exertion. No other aggravating or relieving factors present. Patient denies nausea, vomiting. Reports sweating. She was transferred here from [facility] for heart cath due to lack of availability. Patient was admitted at [facility] and underwent a cardiac workup. Cardiology was consulted. Patient cleared by cardiology for discharge. Pt. condition on discharge: improved, stable Free Text DxA P Notes Free text DxA P notes: Assessment and plan: Patient is a 64 year old female with PMH of COPD, asthma, DM and neuropathy, presented to the ED with complaints left sided chest pain and SOB. #Chest pain -Patient has significant smoking history and family history of heart disease -Vitals stable -BNP elevated at 930 -Serial troponins negative -D dimer normal -Telemetry monitoring -Lipid profile: Elevated triglycerides 432 -Dobutamine stress test done -Cardiology consulted -Patient started on long acting and short acting nitrates, Aspirin 81 mg daily, metoprolol, statin #DM -HBA1C 10.6 -Start insulin sliding scale #Asthma -No asthma exacerbation -Patient on albuterol nebs prn DVT prophylaxis: SCDs lovenox Diet: Cardiac diet Code status: DNR Disposition: Patient underwent dobutamine stress test, cleared by cardiology for discharge. Med Rec Med Rec Discharge meds: Stop taking the following medications: ISOSORBIDE MONONITRATE SR (IMDUR) 30 MG TAB.SR.24H 30 MILLIGRAM ORAL DAILY. Continue taking these medications: ASPIRIN EC (ECOTRIN) 81 MG TAB.EC 81 MILLIGRAM ORAL DAILY. ATORVASTATIN (LIPITOR) 40 MG TAB 40 MILLIGRAM ORAL BEDTIME. METOPROLOL SUCC XL (TOPROL XL) 25 MG TAB.SR.24H 25 MILLIGRAM ORAL DAILY. CLOPIDOGREL (PLAVIX) 75 MG TAB 75 MILLIGRAM ORAL DAILY. metFORMIN (GLUCOPHAGE) 1,000 MG TAB 1,000 MILLIGRAM ORAL TWICE DAILY. Instructions: TAKE WITH MEALS Objective VS/I O Last Documented: Result Date Time Pulse Ox 97 08/29 908 O2 Delivery Room air 08/29 908 B/P 138/72 08/29 429 B/P Mean 94.1 08/29 429 Temp 36.5 08/29 429 Pulse 78 08/29 429 Resp 17 08/29 429 24 hour I O ending at 0700: 08/29 0700 08/28 1900 Intake Total 500 Output Total Balance 500 Intake, Oral 500 Patient 71.818 kg Weight Weight Estimated Measurement Method General appearance: agitated, alert, awake, oriented Head/Eyes: atraumatic, normocephalic Neck: full range of motion, non-tender, normal thyroid, no masses or swelling Cardiovascular: normal capillary refill, normal heart sounds, regular rate rhythm Respiratory: aerating well, clear to auscultation, symmetric expansion, no distress Abdomen: non-tender, soft, no distention Extremities: moves all, no clubbing, no cyanosis, no edema Musculoskeletal: normal inspection Neuro/HERB DOCTOR: alert, oriented X 3, CNII-XII intact, normal speech Psychiatry: normal affect, normal judgment/insight, normal mood Results Findings/Data: Laboratory Tests: 08/29 08/29 08/28 08/28 0538 0537 2102 1636 Chemistry Sodium (134 - 147 mEq/L) 137 Potassium (3.4 - 5.0 mEq/L) 4.4 Chloride (100 - 108 mEq/L) 103 Carbon Dioxide (21 - 33 mEq/l) 26 Anion Gap (0 - 20) 12 BUN (7 - 25 mg/dL) 24 Creatinine (0.6 - 1.3 mg/dL) 0.7 Glomerular Filtr Rate (80 - 90) 95.3 H Glucose (77 - 141 mg/dL) 279 H POC Glucose (70 - 110 MG/DL) 388 H 232 H Hemoglobin A1c (4.8 - 6.0 %A1C) 10.6 H Calcium (8.0 - 10.5 mg/dL) 8.9 Phosphorus (2.5 - 4.9 MG/DL) 3.7 Magnesium (1.6 - 2.6 mg/dL) 1.34 L Troponin I High Sens (0 - 34 ng/L) 19 Triglycerides (40 - 150 mg/dL) 423 H Cholesterol (<200 mg/dL) 162 LDL Cholesterol Measurd (0 - 100 mg/dL) 89.0 HDL Cholesterol (40 - 60 MG/DL) 33.9 L Cholesterol/HDL Ratio (3.27 - 4.44 RATIO) 4.78 H Hematology WBC (4.5 - 11.0 x10 3/uL) 10.6 RBC (3.54 - 5.02 x10 6/uL) 4.48 Hgb (11.0 - 15.0 g/dL) 14.0 Hct (33.0 - 45.0 %) 41.1 MCV (81.0 - 99.0 fL) 91.7 MCH (27.0 - 33.0 pg) 31.3 MCHC (33.0 - 37.0 g/dL) 34.1 RDW (11.5 - 14.5 %) 11.9 Plt Count (150 - 400 x10 3/uL) 218 MPV (7.0 - 9.0 fL) 11.6 H Neut % (Auto) (56.0 - 77.0 %) 46.3 L Lymph % (Auto) (14.0 - 32.0 %) 42.1 H [place] % (Auto) (4.8 - 9.0 %) 7.6 Eos % (Auto) (0.3 - 3.7 %) 2.8 Baso % (Auto) (0.0 - 2.0 %) 0.8 Neut # (Auto) (2.0 - 7.6 x10 3/uL) 4.91 Lymph # (Auto) (1.0 - 3.8 x10 3/uL) 4.47 H [place] # (Auto) (0.1 - 0.8 x10 3/uL) 0.81 H Eos # (Auto) (0.0 - 0.2 x10 3/uL) 0.30 H Baso # (Auto) (0.0 - 0.2 x10 3/uL) 0.09 Abs Immat Gran (auto) (0.00 - 0.03 x10 3/uL) 0.04 H Immature Gran % (0.0 - 2.0 %) 0.4 Nucleated RBC % (0 - 0 %) 0.0 Nucleated RBCs # (Man) (0.0 - 0.1 x10 3/uL) 0.00 Discharge Instructions PCP PCP follow-up: PCP: No Primary or Family Physician Discharge to: Home/Self Care Additional Discharge Routines: PCP Follow-Up, Button Reclaimer Follow-Up Diet: Cardiac Activity: As Tolerated Follow-up Appointments Consulting provider 1: Provider 1: Dot Rios MD, Eduardo S 08/29/24 2243: Attestations Teaching Physician Attestation F/U visit w/o resident: I personally saw the patient and reviewed the resident's note. I agree with the resident's findings and plan. at 1404 at 2250 RPT #:[id number] END OF REPORT [facility] 2024-08-29 13:03:00 [id number] [place] [address] PATIENT NAME: GARY REN ADMIT DATE: 08/28/24 ACCOUNT NO: [id number] ROOM NO: [facility] AGE: 64 REPORT TYPE: eSTRESS ECHOCARDIOGRAM REPORT SEX: F ADMITTING PHYSICIAN:Belen Zarate MD ATTENDING PHYSICIAN:Florian Timmons MD *[place] [address] Stress Echocardiogram Dobutamine Patient: Gary Ren Study Date: 08/29/2024 BP: URN: [id number] Location: : 1960 Age: 64 Gender: F Height: 65 in / 165 cm Weight: 156.5 lb / 71 kg BMI/BSA: 26.1 kg/m 2 / 1.82 m 2 *Ordering Physician: * Yarely León *Interpreting Physician: * Dot Rios MD *Quilting Machine Helper: * Gracie Cancino Indications: DOBUTAMINE. Study data: Consent: The risks, benefits, and alternatives to the procedure were explained to the patient and informed consent was obtained. Procedure: The patient arrived at the laboratory. A baseline ECG was recorded. Intravenous access was obtained. Surface ECG leads and manual cuff blood pressure measurements were monitored. Dobutamine stress test was performed. Dobutamine was administered. A transthoracic stress echocardiogram was performed. Image quality was fair. Images were captured at baseline, low dose, PATIENT NAME: GARY REN peak dose, and recovery. Location: Echo laboratory. Patient status: Inpatient. Patient room number: 650. Study status: Routine. Study completion: There were no complications. Findings Left ventricle: The cavity size is normal. Wall thickness is normal. Systolic function is normal. The estimated ejection fraction is 55-60%. Wall motion is normal; there are no regional wall motion abnormalities. Left ventricular diastolic function parameters are normal. Right ventricle: The cavity size is normal. Systolic function is normal. Cardiac stress table: + +---- +---+ + !Stage !Time into phase!HR !BP ! + +---- +---+ + !Baseline !13:31 !78 !132/76 (95) ! + +---- +---+ + !Dobutamine 5 ug/kg/min !02:00 !79 !149/84 (106)! + +---- +---+ + !Dobutamine 10 ug/kg/min!02:00 !74 !125/78 (94) ! + +---- +---+ + !Dobutamine 20 ug/kg/min!02:00 !95 !130/81 (97) ! + +---- +---+ + !Dobutamine 30 ug/kg/min!02:00 !120!171/78 (109)! + +---- +---+ + !Dobutamine 40 ug/kg/min!02:03 !133!164/82 (109)! + +---- +---+ + !Recovery; 3 min !03:00 !126!141/72 (95) ! + +---- +---+ + !Recovery; 6 min !03:00 !101!149/75 (100)! + +---- +---+ + !Recovery; 9 min !03:00 !93 !142/78 (99) ! + +---- +---+ + !Recovery; 12min !03:06 !90 !125/76 (92) ! + +---- +---+ + Stress results: Maximal heart rate during stress was 133 bpm (86% of maximal predicted heart rate). The maximal predicted heart rate was 154 bpm. The target heart rate was 131 bpm. The rate-pressure product for the peak heart rate and blood pressure was 45616 mm Hg/min. Conclusions Summary: Left ventricle: The cavity size is normal. Wall thickness is normal. Systolic function is normal. The estimated ejection fraction is 55-60%. Wall motion is normal; there are no regional wall motion abnormalities. Left ventricular diastolic function parameters are normal. Impressions: Normal study after pharmacologic stress. PATIENT NAME: GARY REN Electronically signed by Dot Rios MD 08/29/2024 13:02 at 1303 PATIENT NAME: GARY REN [facility] 2024-08-29 11:00:00 [facility] Cardiology Progress Note REPORT#:[id number] REPORT STATUS: Signed REPORT INITIALIZATION DATE:08/29/24 TIME: 1100 PATIENT: GARY REN UNIT #: [id number] [address]: [address] : [birth year] AGE: 64 SEX: F ATTEND: Florian Timmons MD ADM AUTHOR: Lamar Holm MD R1 REPT SERVICE DT/TIME: 08/29/24 1100 * ALL edits or amendments must be made on the electronic/computer document * Lamar Holm 08/29/24 1100: Subjective Chief complaint: Chest Pain HPI: Gary Ren is a 64-year-old female with a past medical history of DMT2, COPD, asthma, neuropathy, and daily smoker who transferred from [facility] 08/28/2024. The patient presented with complaints of chest pain for 4 days that was left-sided that radiates down her left arm. Sunday she was seen at [facility] and found to have elevated cardiac enzymes and planned for a heart cath however due to long delays she signed out AMA. Of note, caridac enzymes have been neg x 2, D -Dimer 246, and CXR negative. BNP elevated at 980. Cardiology consulted for chest pain and shortness of breath. Free Text Subj Notes Free Text Subj Notes: 08/29: patient lying awake with spouse at bedside. Pt has no acute cardiac concerns. Pending DSE, possible LHC. Review of Systems Skin: Denies: bruising, itching. Cardiovascular: Denies: chest pain, MENJIVAR (dyspnea on exertion), edema, orthopnea. GI: Denies: constipation, diarrhea. Neuro: Denies: change in LOC, confusion. All systems rev neg: except as marked Objective General VS/I O: 24 hour I O ending at 0700: 08/29 0700 08/28 1900 Intake Total 500 Output Total Balance 500 Intake, Oral 500 Patient 71.818 kg Weight Weight Estimated Measurement Method Vital Signs: Date Time Temp Pulse Resp B/P B/P Pulse O2 O2 Flow FiO2 Mean Ox Delivery Rate 08/29 0429 36.5 78 17 138/72 94.1 97 Room air 08/28 2344 36.8 86 17 128/57 80.5 97 08/28 2007 36.6 83 17 136/69 91.5 94 Room air 08/28 1605 36.9 75 128/64 85.2 92 08/28 1605 36.9 75 128/64 85.2 92 08/28 1312 36.9 81 16 117/67 83 95 Room air PATIENT WEIGHT: Weight (lb): Weight (oz): Weight (kg): 71.818 Medications: Active Meds + DC'd Last 24 Hrs Aspirin (ASPIRIN) 81 MG DAILY PO Clopidogrel Bisulfate (Plavix) 75 MG DAILY PO Isosorbide Mononitrate (Imdur 30 mg) 30 MG DAILY PO Metoprolol Succinate (TOPROL XL) 25 MG DAILY PO Metoprolol Succinate (TOPROL XL) 25 MG ONCALL PO (DC) Atorvastatin Calcium (LIPITOR) 40 MG BEDTIME PO Insulin Human Lispro (HUMALOG) 0 AC HS SUBQ Ranolazine (RANEXA 500MG TAB) 500 MG Q12HR PO Albuterol Sulfate (ALBUTEROL SULFATE) 1.25 MG RTQ2H PRN PRN NEB Dextrose/Water (DEXTROSE 10% IN WATER) 125 ML ASDIR PRN IV (CKD) Dextrose/Water (DEXTROSE 10% IN WATER) 250 ML ASDIR PRN IV (CKD) Glucagon (GLUCAGON) 1 MG ASDIR PRN IM Nitroglycerin (NITROSTAT) 0.4 MG Q5M PRN PRN SL Lorazepam (ATIVAN) 0.5 MG BID PRN PRN PO Nicotine (NICODERM) 14 MG DAILY TRANSDERM Lorazepam (ATIVAN) 1 MG ONCE ONE IV (DC) Sodium Chloride (SODIUM CHLORIDE) 0 ASDIR PRN IV Enoxaparin Sodium (lovENOX) 40 MG Q24H SUBQ Acetaminophen (TYLENOL) 650 MG Q4H PRN PRN PO Docusate Sodium (COLACE) 100 MG BID PRN PRN PO Hydrocodone Bitart/Acetaminophen (NORCO 5/325) 1 TAB Q6H PRN PRN PO Hydrocodone Bitart/Acetaminophen (NORCO 10/325) 1 TAB Q4H PRN PRN PO Ondansetron HCl (ZOFRAN) 4 MG Q4H PRN PRN IV Potassium Chloride (POTASSIUM CHLORIDE 20MEQ TAB.ER) 40 MEQ DAILY PRN PRN PO Sodium Chloride (SODIUM CHLORIDE 0.9%) 1,000 ML .[id number] IV Dextrose/Water (DEXTROSE 10% IN WATER) 125 ML ASDIR PRN IV (DC) Dextrose/Water (DEXTROSE 10% IN WATER) 250 ML ASDIR PRN IV (DC) Glucagon (GLUCAGON) 1 MG ASDIR PRN IM (DC) Physical Exam General appearance: alert, awake, oriented Head/Eyes: atraumatic, EOMI, normocephalic, PERRL ENT: moist mucosal membranes Neck: non-tender, no JVD Cardiovascular: CV assessment: regular rate and rhythm, BP pulses = bilaterally, normal heart sounds Respiratory: clear to auscultation, no distress Abdomen: soft, non-tender, normal bowel sounds, no distention Genitourinary: no flank pain Upper extremity: UE assessment: normal capillary refill, no clubbing, no cyanosis, no edema Lower extremity: LE assessment: no clubbing, no cyanosis, no edema Musculoskeletal: normal inspection Neuro/HERB DOCTOR: alert, oriented X 3, no motor deficits, neuropathic pain Skin: dry, intact Psychiatry: anxious Results Findings/Data: Laboratory Tests 08/29 08/29 08/28 08/28 08/28 0538 0537 2102 1636 1356 Chemistry Sodium (134 - 147 mEq/L) 137 Potassium (3.4 - 5.0 mEq/L) 4.4 Chloride (100 - 108 mEq/L) 103 Carbon Dioxide (21 - 33 mEq/l) 26 Anion Gap (0 - 20) 12 BUN (7 - 25 mg/dL) 24 Creatinine (0.6 - 1.3 mg/dL) 0.7 Glomerular Filtr Rate (80 - 90) 95.3 H Glucose (77 - 141 mg/dL) 279 H POC Glucose (70 - 110 MG/DL) 388 H 232 H Hemoglobin A1c (4.8 - 6.0 %A1C) 10.6 H Calcium (8.0 - 10.5 mg/dL) 8.9 Phosphorus (2.5 - 4.9 MG/DL) 3.7 Magnesium (1.6 - 2.6 mg/dL) 1.34 L Troponin I High Sens (0 - 34 ng/L) 19 25 Triglycerides (40 - 150 mg/dL) 423 H Cholesterol (<200 mg/dL) 162 LDL Cholesterol Measurd (0 - 100 mg/dL) 89.0 HDL Cholesterol (40 - 60 MG/DL) 33.9 L Cholesterol/HDL Ratio (3.27 - 4.44 RATIO) 4.78 H 08/28 1355 Chemistry POC Glucose (70 - 110 MG/DL) 320 H Laboratory Tests 08/29 0537 Hematology WBC (4.5 - 11.0 x10 3/uL) 10.6 RBC (3.54 - 5.02 x10 6/uL) 4.48 Hgb (11.0 - 15.0 g/dL) 14.0 Hct (33.0 - 45.0 %) 41.1 MCV (81.0 - 99.0 fL) 91.7 MCH (27.0 - 33.0 pg) 31.3 MCHC (33.0 - 37.0 g/dL) 34.1 RDW (11.5 - 14.5 %) 11.9 Plt Count (150 - 400 x10 3/uL) 218 MPV (7.0 - 9.0 fL) 11.6 H Neut % (Auto) (56.0 - 77.0 %) 46.3 L Lymph % (Auto) (14.0 - 32.0 %) 42.1 H [place] % (Auto) (4.8 - 9.0 %) 7.6 Eos % (Auto) (0.3 - 3.7 %) 2.8 Baso % (Auto) (0.0 - 2.0 %) 0.8 Neut # (Auto) (2.0 - 7.6 x10 3/uL) 4.91 Lymph # (Auto) (1.0 - 3.8 x10 3/uL) 4.47 H [place] # (Auto) (0.1 - 0.8 x10 3/uL) 0.81 H Eos # (Auto) (0.0 - 0.2 x10 3/uL) 0.30 H Baso # (Auto) (0.0 - 0.2 x10 3/uL) 0.09 Abs Immat Gran (auto) (0.00 - 0.03 x10 3/uL) 0.04 H Immature Gran % (0.0 - 2.0 %) 0.4 Nucleated RBC % (0 - 0 %) 0.0 Nucleated RBCs # (Man) (0.0 - 0.1 x10 3/uL) 0.00 Laboratory Tests 08/29 08/28 0538 1356 Chemistry Magnesium (1.6 - 2.6 mg/dL) 1.34 L Troponin I High Sens (0 - 34 ng/L) 19 25 Diagnosis, Assessment Plan Free Text DxA P Notes Free Text DxA P Notes: Gary eRn is a 64-year-old female with a past medical history of DM, COPD, asthma, Neuropathy, and daily smoker who was transferred from [facility] ER. The patient presented with complaints of chest pain for 4 days that was left- sided that radiates down her left arm. Cardiology consulted for chest pain and shortness of breath. 1. Chest Pain 08/28 Cardiac Workup * Trop Neg X2, 33>25 * BNP elevated at 930 * CXR: No cardiopulmonary process * D-Dimer: Neg Cont Medications: * Metoprolol XL 25 MG PO daily * Statin * ASA * Isosorbide Mononitrate 30 mg po daily * Plavix 75 mg po daily * Nitro 0.4 mg sublingual prn CP * Ranexa 500 mg BID 2. Shortness of breath -Echo ordered -Given nature of CP and associated shortness of breath, does not appear to be pulmonary in nature. -pending DSE for further POC 3. Anxiety -Ativan 1mg IV x 1 -Further management by IM 4. Diabetes Mellitus -A1C ordered -ACHS - humalog 5. Smoker -Nicotene patch -Advise cessation -Recommend outpt Pulm eval 6. Hyperlipidemia -Continue Atorvastatin 40 mg po qHS -Lipid panel cholesterol 162, LDL 89 Rest per IM/respective consultants. Plan of care thouroughly discussed with supervising physician, Dr. Rios, who has also seen/examined patient and is in agreement. Dot Rios 09/26/241946: Attestations Physician Attestation Agree w/findings plan: Agree with the findings and plan as documented by [insert NATALIE name]; * my personal evaluation is [ ] I have reviewed the patient's chart, vital, lab work, current medications and other diagnostic studies. I saw and examined the patient today and agree with the details note written by LIVESTOCK BREEDER. The entire decision-making process is done by Dr. Dot Rios MD. Please see the detailed progress note for additional details. Thanks for allowing us to participate in the care of this patient. Please feel free to call for any questions. at 1219 at [phone] RPT #:[id number] END OF REPORT [facility] 2024-08-28 16:18:00 [facility] ([facility]) Cardiology Consultation REPORT#:[id number] REPORT STATUS: Signed REPORT INITIALIZATION DATE:08/28/24 TIME: 1617 PATIENT: GARY REN UNIT #: [id number] ROOM/BED: [id number] : 58 AGE: 64 SEX: F ATTEND: Florian Timmons MD ADM AUTHOR: Yarely León LIVESTOCK BREEDER REPT SERVICE DT/TIME: 08/28/24 161 * ALL edits or amendments must be made on the electronic/computer document * Yarely León 08/28/24 1618: History of Present Illness HPI Requesting Clinician: Dr. Myrna Camarena Reason for consult: Chest Pain/Shortness of breath Chief complaint: Chest Pain HPI: Gary Ren is a 64-year-old female with a past medical history of DMT2, COPD, asthma, neuropathy, and daily smoker who transferred from [facility] ER 08/28/2024. The patient presented with complaints of chest pain for 4 days that was left-sided that radiates down her left arm. Sunday she was seen at [facility] and found to have elevated cardiac enzymes and planned for a heart cath however due to long delays she signed out AMA. Of note, caridac enzymes have been neg x 2, D -Dimer 246, and CXR negative. BNP elevated at 980. Cardiology consulted for chest pain and shortness of breath. Upon examimation patient lying awake with spouse at bedside. Patient agitated due to "slow process" and feels "extremely anxious and my heart hurts". Patient verbalized she is a every day smoker and took anxiety pills when she was younger. Patient requesting anxiety medication and food. History - Adult longitudinal Past medical history: Reports: Diabetes mellitus. Additional medical history: Anxiety Disorder, Current daily smoker Smoking status for patients 13 years old or older: Current some day smoker Date last smoked: 08/28/24 Home medications: Home Medications: metFORMIN (GLUCOPHAGE) 1,000 MG PO BID ISOSORBIDE MONONITRATE SR (IMDUR) 30 MG PO DAILY ASPIRIN EC (ECOTRIN) 81 MG PO DAILY ATORVASTATIN (LIPITOR) 40 MG PO BEDTIME METOPROLOL SUCC XL (TOPROL XL) 25 MG PO DAILY CLOPIDOGREL (PLAVIX) 75 MG PO DAILY Allergies: Coded Allergies: No Known Allergies (08/28/24) Review of Systems Constitutional: Denies: chills, fatigue. Respiratory: Reports: MENJIVAR (dyspnea on exertion), SOB. Cardiovascular: Reports: dyspnea on exertion, palpitations. Psych: agitation, anxiety, stress. All systems rev neg: except as marked Objective General VS/I O: Vital Signs: Date Time Temp Pulse Resp B/P B/P Pulse O2 O2 Flow FiO2 Mean Ox Delivery Rate 08/28 1605 36.9 75 128/64 85.2 92 08/28 1605 36.9 75 128/64 85.2 92 08/28 1312 36.9 81 16 117/67 83 95 Room air PATIENT WEIGHT: Weight (lb): Weight (oz): Weight (kg): 71.818 Medications: Active Meds + DC'd Last 24 Hrs Nicotine (NICODERM) 14 MG DAILY TRANSDERM Lorazepam (ATIVAN) 1 MG ONCE ONE IV (UNV) Sodium Chloride (SODIUM CHLORIDE) 0 ASDIR PRN IV (UNV) Enoxaparin Sodium (lovENOX) 40 MG Q24H SUBQ Acetaminophen (TYLENOL) 650 MG Q4H PRN PRN PO Docusate Sodium (COLACE) 100 MG BID PRN PRN PO Hydrocodone Bitart/Acetaminophen (NORCO 5/325) 1 TAB Q6H PRN PRN PO Hydrocodone Bitart/Acetaminophen (NORCO 10/325) 1 TAB Q4H PRN PRN PO Ondansetron HCl (ZOFRAN) 4 MG Q4H PRN PRN IV Potassium Chloride (POTASSIUM CHLORIDE 20MEQ TAB.ER) 40 MEQ DAILY PRN PRN PO Sodium Chloride (SODIUM CHLORIDE 0.9%) 1,000 ML .[id number] IV Dextrose/Water (DEXTROSE 10% IN WATER) 125 ML ASDIR PRN IV (CKD) Dextrose/Water (DEXTROSE 10% IN WATER) 250 ML ASDIR PRN IV (CKD) Glucagon (GLUCAGON) 1 MG ASDIR PRN IM Physical Exam General appearance: agitated Head/Eyes: atraumatic, EOMI, normocephalic, PERRL ENT: moist mucosal membranes Neck: non-tender, no JVD Cardiovascular: CV assessment: regular rate and rhythm, BP pulses = bilaterally, normal heart sounds Respiratory: clear to auscultation, no distress Abdomen: soft, non-tender, normal bowel sounds, no distention Genitourinary: no flank pain Upper extremity: UE assessment: normal capillary refill, no clubbing, no cyanosis, no edema Lower extremity: LE assessment: no clubbing, no cyanosis, no edema Musculoskeletal: normal inspection Neuro/HERB DOCTOR: alert, oriented X 3, no motor deficits, neuropathic pain Skin: dry, intact Psychiatry: anxious Results Findings/Data: Laboratory Tests 08/28 08/28 1356 1355 Chemistry POC Glucose (70 - 110 MG/DL) 320 H Troponin I High Sens (0 - 34 ng/L) 25 Laboratory Tests 08/28 1356 Chemistry Troponin I High Sens (0 - 34 ng/L) 25 Diagnosis, Assessment Plan Free Text DxA P Notes Free Text DxA P Notes: Gary Ren is a 64-year-old female with a past medical history of DM, COPD, astham, Neuropathy, and daily smoker who was transferred from [facility] ER. The patient presented with complaints of chest pain for 4 days that was left- sided that radiates down her left arm. Cardiology consulted for chest pain and shortness of breath. 1. Chest Pain 08/28 Cardiac Workup * Trop Neg X2, 33>25 * BNP elevated at 930 * CXR: No cardiopulmonary process * D-Dimer: Neg -Medications: * restart Metoprolol XL 25 MG PO daily * restart Statin * restart ASA * restart Isosorbide Mononitrate 30 mg po daily * restart Plavix 75 mg po daily * Start Nitro 0.4 mg sublingual prn CP * Start Ranexa 500 mg BID 2. Shortness of breath -Echo ordered -Given nature of CP and associated shortness of breath, does not appear to be pulmonary in nature. Will get Lexiscan in AM. -NPO midnight 3. Anxiety -Ativan 1mg IV x 1 -Further management by IM 4. Diabetes Mellitus -A1C ordered -Managed by IM 5. Smoker -Nicotene patch -Advise cessation -Recommend outpt Pulm eval 6. Hyperlipidemia -Restart home Atorvastatin 40 mg po qHS -Lipid panel in AM Rest per IM/respective consultants. Thank you for this kind consultation. Plan of care thouroughly discussed with supervising physician, Dr. Rios, who has also seen/examined patient and is in agreement. Dot Rios 09/26/246: Attestations Physician Attestation Agree w/findings plan: Agree with the findings and plan as documented by [insert NATALIE name]; * my personal evaluation is [ ] I have reviewed the patient's chart, vital, lab work, current medications and other diagnostic studies. I saw and examined the patient today and agree with the details note written by LIVESTOCK BREEDER. The entire decision-making process is done by Dr. Dot Rios MD. Please see the detailed progress note for additional details. Thanks for allowing us to participate in the care of this patient. Please feel free to call for any questions. at 1934 at 1952 RPT #:[id number] END OF REPORT [facility] 2024-08-28 14:47:00 [facility] ([facility]) Hospitalist History Physical REPORT#:[id number] REPORT STATUS: Signed REPORT INITIALIZATION DATE:08/28/24 TIME: 1446 PATIENT: GARY REN UNIT #: [id number] ROOM/BED: [place] [id number] : 58 AGE: 64 SEX: F ATTEND: Florian Timmons MD ADM AUTHOR: Mary Alice Simmons MD R1 REPT SERVICE DT/TIME: 08/28/241446 * ALL edits or amendments must be made on the electronic/computer document * Mary Alice Simmons 08/28/247: History of Present Illness HPI Chief complaint: Left sided chest pain and SOB PCP: PCP: No Primary or Family Physician HPI: Patient is a 64 year old female with PMH of COPD, asthma, DM and neuropathy, presented to the ED with complaints left sided chest pain and SOB. Patient stated she's had these symptoms on and off for a long time but they particularly worse last week on prompting her to go the ED. She first went to [facility] from where she was transferred to [facility] for ACS workup. She was scheduled to undergo a heart cath but left AMA when the procedure kept getting delayed. Patient has had persistent symptoms since then. Her chest pain radiates to her left arm and aggravates with stress and exertion. No other aggravating or relieving factors present. Patient denies nausea, vomiting. Reports sweating. She was transferred here from [facility] for heart cath due to lack of availability. Hx Obtained From Patient History Past medical history: Reports: Asthma, COPD, Diabetes mellitus. Additional medical history: Neuropathy Family history: Reports: Heart disease, Hyperlipidemia. Alcohol use: Denies EtOH use Drug use: Denies recreational drugs Smoking status for patients 13 years old or older: Current some day smoker Medication/Allergy-Vaccine Hx Medications: Home Medications: Medication Dose/Rte/Freq Days Qty Entered Last Max Daily Dose Reviewed metFORMIN (GLUCOPHAGE) 1,000 MG PO BID 08/28/24 08/28/24 Strength: 1,000 MG TAB 1616 1617 ISOSORBIDE 30 MG PO DAILY 08/28/24 08/28/24 MONONITRATE SR 1039 1617 (IMDUR) Strength: 30 MG TAB.SR.24H ASPIRIN EC (ECOTRIN) 81 MG PO DAILY 08/28/24 08/28/24 Strength: 81 MG TAB.EC 1039 1617 ATORVASTATIN (LIPITOR) 40 MG PO BEDTIME 08/28/24 08/28/24 Strength: 40 MG TAB 1044 1617 METOPROLOL SUCC XL 25 MG PO DAILY 08/28/24 08/28/24 (TOPROL XL) 1045 1617 Strength: 25 MG TAB.SR.24H CLOPIDOGREL (PLAVIX) 75 MG PO DAILY 08/28/24 08/28/24 Strength: 75 MG TAB 1050 1617 Current Hospital Medications: Autonomic Drugs Sig/Fly Start time Last Medication Dose Route Stop Time Status Admin Albuterol Sulfate 1.25 MG RTQ2H PRN PRN 08/28 1645 AC (ALBUTEROL SULFATE) NEB 09/27 1644 Nicotine 14 MG DAILY 08/28 1630 AC 08/28 (NICODERM) TRANSDERM 11/26 1629 1640 Blood Formation,Coagulation Sig/Fly Start time Last Medication Dose Route Stop Time Status Admin Clopidogrel Bisulfate 75 MG DAILY 08/29 09 AC (Plavix) PO 11/27 0859 Enoxaparin Sodium 40 MG Q24H 08/28 1500 AC 08/28 (lovENOX) SUBQ 11/26 1459 1642 Cardiovascular Drugs Sig/Fly Start time Last Medication Dose Route Stop Time Status Admin Isosorbide 30 MG DAILY 08/29 09 AC Mononitrate PO 11/27 0859 (Imdur 30 mg) Metoprolol Succinate 25 MG DAILY 08/29 09 AC (TOPROL XL) PO 11/27 0859 Atorvastatin Calcium 40 MG BEDTIME 08/28 2100 AC (LIPITOR) PO 09/27 205 Nitroglycerin 0.4 MG Q5M PRN PRN 08/28 1645 AC (NITROSTAT) SL 11/26 1644 Central Nervous System Agents Sig/Fly Start time Last Medication Dose Route Stop Time Status Admin Aspirin 81 MG DAILY 08/29 0900 AC (ASPIRIN) PO 11/27 0859 Lorazepam 0.5 MG BID PRN PRN 08/28 1630 AC 08/28 (ATIVAN) PO 11/26 1629 1809 Lorazepam 1 MG ONCE ONE 08/28 1615 DC 08/28 (ATIVAN) IV 08/28 1616 1641 Acetaminophen 650 MG Q4H PRN PRN 08/28 1445 AC (TYLENOL) PO 11/26 1444 Hydrocodone Bitart/ 1 TAB Q6H PRN PRN 08/28 1445 AC Acetaminophen PO 09/02 144 (NORCO 5/325) Hydrocodone Bitart/ 1 TAB Q4H PRN PRN 08/28 1445 AC Acetaminophen PO 09/02 1444 (NORCO 10/325) Electrolytic, Caloric, And Tracy Sig/Fly Start time Last Medication Dose Route Stop Time Status Admin Dextrose/Water 125 ML ASDIR PRN 08/28 1645 CKD (DEXTROSE 10% IN IV 11/26 164 WATER) Dextrose/Water 250 ML ASDIR PRN 08/28 1645 CKD (DEXTROSE 10% IN IV 11/26 164 WATER) Sodium Chloride 0 ASDIR PRN 08/28 1615 AC (SODIUM CHLORIDE) IV 11/26 1614 Potassium Chloride 40 MEQ DAILY PRN PRN 08/28 1445 AC (POTASSIUM CHLORIDE PO 11/26 1444 20MEQ TAB.ER) Sodium Chloride 1,000 ML .[id number] 08/28 1445 AC (SODIUM CHLORIDE IV 08/30 1441 0.9%) Dextrose/Water 125 ML ASDIR PRN 08/28 1345 CKD (DEXTROSE 10% IN IV 08/29 1237 WATER) Dextrose/Water 250 ML ASDIR PRN 08/28 1345 CKD (DEXTROSE 10% IN IV 08/29 1237 WATER) Gastrointestinal Drugs Sig/Fly Start time Last Medication Dose Route Stop Time Status Admin Docusate Sodium 100 MG BID PRN PRN 08/28 1445 AC (COLACE) PO 11/26 1444 Ondansetron HCl 4 MG Q4H PRN PRN 08/28 1445 AC (ZOFRAN) IV 11/26 1444 Hormones And Synthetic Substit Sig/Fly Start time Last Medication Dose Route Stop Time Status Admin Insulin Human Lispro 0 AC HS 08/28 2100 AC (HUMALOG) SUBQ 11/26 2058 Glucagon 1 MG ASDIR PRN 08/28 1645 AC (GLUCAGON) IM 11/26 1644 Glucagon 1 MG ASDIR PRN 08/28 1345 AC (GLUCAGON) IM 08/29 1237 Allergies: Coded Allergies: No Known Allergies (08/28/24) Review of Systems Respiratory: Reports: SOB. Cardiovascular: chest pain. All systems rev neg: except as marked Objective General VS/I O: Vital Signs: Date Time Temp Pulse Resp B/P B/P Pulse O2 O2 Flow FiO2 Mean Ox Delivery Rate 08/28 1605 36.9 75 128/64 85.2 92 08/28 1605 36.9 75 128/64 85.2 92 08/28 1312 36.9 81 16 117/67 83 95 Room air PATIENT WEIGHT: Weight (lb): Weight (oz): Weight (kg): 71.818 Medications: Active Meds + DC'd Last 24 Hrs Aspirin (ASPIRIN) 81 MG DAILY PO Clopidogrel Bisulfate (Plavix) 75 MG DAILY PO Isosorbide Mononitrate (Imdur 30 mg) 30 MG DAILY PO Metoprolol Succinate (TOPROL XL) 25 MG DAILY PO Atorvastatin Calcium (LIPITOR) 40 MG BEDTIME PO Insulin Human Lispro (HUMALOG) 0 AC HS SUBQ Albuterol Sulfate (ALBUTEROL SULFATE) 1.25 MG RTQ2H PRN PRN NEB Dextrose/Water (DEXTROSE 10% IN WATER) 125 ML ASDIR PRN IV (CKD) Dextrose/Water (DEXTROSE 10% IN WATER) 250 ML ASDIR PRN IV (CKD) Glucagon (GLUCAGON) 1 MG ASDIR PRN IM Nitroglycerin (NITROSTAT) 0.4 MG Q5M PRN PRN SL Lorazepam (ATIVAN) 0.5 MG BID PRN PRN PO Nicotine (NICODERM) 14 MG DAILY TRANSDERM Lorazepam (ATIVAN) 1 MG ONCE ONE IV (DC) Sodium Chloride (SODIUM CHLORIDE) 0 ASDIR PRN IV Enoxaparin Sodium (lovENOX) 40 MG Q24H SUBQ Acetaminophen (TYLENOL) 650 MG Q4H PRN PRN PO Docusate Sodium (COLACE) 100 MG BID PRN PRN PO Hydrocodone Bitart/Acetaminophen (NORCO 5/325) 1 TAB Q6H PRN PRN PO Hydrocodone Bitart/Acetaminophen (NORCO 10/325) 1 TAB Q4H PRN PRN PO Ondansetron HCl (ZOFRAN) 4 MG Q4H PRN PRN IV Potassium Chloride (POTASSIUM CHLORIDE 20MEQ TAB.ER) 40 MEQ DAILY PRN PRN PO Sodium Chloride (SODIUM CHLORIDE 0.9%) 1,000 ML .[id number] IV Dextrose/Water (DEXTROSE 10% IN WATER) 125 ML ASDIR PRN IV (CKD) Dextrose/Water (DEXTROSE 10% IN WATER) 250 ML ASDIR PRN IV (CKD) Glucagon (GLUCAGON) 1 MG ASDIR PRN IM Physical Exam General appearance: alert, awake, oriented Head/Eyes: atraumatic, normocephalic Neck: full range of motion, non-tender, normal thyroid, no masses or swelling Cardiovascular: normal capillary refill, normal heart sounds, regular rate rhythm Respiratory: aerating well, clear to auscultation, symmetric expansion, no distress Abdomen: non-tender, soft, no distention Extremities: moves all, no clubbing, no cyanosis, no edema Musculoskeletal: normal inspection Neuro/HERB DOCTOR: alert, oriented X 3, CNII-XII intact, normal speech Psychiatry: normal affect, normal judgment/insight, normal mood Results Findings/Data: Laboratory Tests 08/28 08/28 08/28 1636 1356 1355 Chemistry POC Glucose (70 - 110 MG/DL) 232 H 320 H Troponin I High Sens (0 - 34 ng/L) 25 Diagnosis, Assessment Plan Free Text DxA P Notes Free Text DxA P Notes: Assessment and plan: Patient is a 64 year old female with PMH of COPD, asthma, DM and neuropathy, presented to the ED with complaints left sided chest pain and SOB. #Chest pain #Acute coronary syndrom -Patient has significant smoking history and family history of heart disease -Vitals stable -BNP elevated at 930 -Trops negative at 33 and 25 -D dimer normal -Serial troponins ordered -Telemetry monitoring -Lipid profile and HBA1C ordered -Echo ordered -Cardiology consulted -Patient started on long acting and short acting nitrates, Aspirin 81 mg daily, metoprolol, statin #DM -Hold metformin for now -Start insulin sliding scale #Asthma -No asthma exacerbation -Patient on albuterol nebs prn DVT prophylaxis: SCDs lovenox Diet: Cardiac diet Code status: DNR Disposition: Per cardiology Florian Timmons 08/28/24 2228: Attestations Teaching Physician Attestation 1st visit w/o resident: I performed a history and physical examination of the patient and discussed with the resident. I have reviewed the resident's note and agree with the findings and plan as documented in the resident's note. at 1850 at 2231 RPT #:[id number] END OF REPORT [facility] 2024-08-28 13:20:00 [facility] ([facility]) EMERGENCY PROVIDER REPORT REPORT#:[id number] REPORT STATUS: Signed DATE:08/28/24 TIME: 1320 PATIENT: GARY REN UNIT #: [id number] [id number] AGE: 64 SEX:F PCP PHYS: No Primary or Family Physician SERVICE AUTHOR: Myrna Camarena APRNNP REP SRV REP SRV TM: 1320 * ALL edits or amendments must be made on the electronic/computer document * Myrna Camarena 08/28/24 1320: HPI-Chest Pain 40 and Over Free Text HPI Notes Free Text HPI Notes This is a 64-year-old female who was transferred from [facility] ER. She has a medical history of diabetes, COPD on room air, neuropathy, asthma. The patient presented there complaining of a 4 day duration of left-sided chest pain radiating down her left arm. Sunday she was seen at [facility] and found to have elevated cardiac enzymes however due to long delays she signed out AMA. [facility] was at capacity so transferred the patient here. General Confirmed Patient Yes Initial Greet Date/Time 08/28/24 1314 PCP MEM HERRMAN- NO PCP Presentation Chief Complaint Chest pain Sudden in Onset? No )( Migration/Movement LEFT ARM Risk-Chest Pain 40 and Over Risk Stratification )( Coronary Artery Disease Diabetes mellitus )( Thoracic Aortic Dissection No risk factors )( Pulmonary Embolism No risk factors )( AMI-Aspirin Aspirin Last 24 Hrs None )( HEART for MACE )( HEART for MACE Response Value History Low index of suspicion 0 ECG Interpretation Normal ECG 0 Age Age 65 or over 2 Risk Factors for CAD 1-2 CAD risk factors 1 Troponin < or = to NL troponin 0 Total 3 HEART Score for MACE 0-3 (low risk 0.9%-1.7%) HEART Score Reference Resource material only. Click 'Cancel' button and information will not be inserted into or become part of the medical record Risk factors considered for determining a patient's HEART Score include: hypercholesterolemia (hyperlipidemia), hypertension, diabetes mellitus, cigarette smoking, positive family history and obesity. Major Adverse Cardiac Events (MACE) include: acute myocardial infarction, ischaemic stroke, coronary arterial occlusion and . References: Derek LOZA, Misty BHATTI, et al. Chest pain in the emergency room: value of the HEART score. Net Heart J. 2008 Ja:16(6):191-6. PubMed PMID: 14681253; PubMed Central PMCID: [id number]. Misty BHATTI, Derek LOZA, et al. A prospective validation of the HEART score for chest pain patients at the emergency department. Int J Cardiol. 2013 Aug 3:168(3):2153 -8. Doi: 10.1016/j.ijcard.2013.01.255. Epub 2012Jan 09. PubMed PMID: 96015162. Review of Systems ROS Statements All systems rev neg except as marked. Focused Review of Systems Respiratory Reports: Shortness of breath. Past Medical History - Adult Stated Complaint CP Allergies Coded Allergies: No Known Allergies (08/28/24) Smoking status for patients 13 years old or older: Unknown,if ever smoked Physical Exam Vital Signs Vital Signs First Documented: Result Date Time Pulse Ox 95 08/28 1312 B/P 117/67 08/28 1312 B/P Mean 83 08/28 1312 O2 Delivery Room air 08/28 1312 Temp 36.9 08/28 131 Pulse 81 08/28 1312 Resp 16 08/28 1312 Last Documented: Result Date Time Pulse Ox 95 08/28 1312 B/P 117/67 08/28 1312 B/P Mean 83 08/28 131 O2 Delivery Room air 08/28 1312 Temp 36.9 08/28 1312 Pulse 81 08/28 131 Resp 16 08/28 131 Review of Vital Signs Reviewed Focused PE General/Const General/Const Awake, Alert, No acute distress, Well appearing, Well developed , Well hydrated, Well nourished, Cooperative, Not toxic appearing Eyes Eyes Atraumatic MS Neck Neck Atraumatic, No swelling Resp/Chest Respiratory/Chest Atraumatic, Breath sounds NL, Breath sounds = bilat, No respiratory distress, No rales, No rhonchi, No wheezing, No retractions, No stridor, No chest tenderness, No chest wall deformity, No crepitus Cardiovascular Cardiovascular Heart rate NL, Regular rhythm, Cap refill not delayed, Peripheral circulation NL Abdomen/GI Abdomen/GI Atraumatic, Soft, Non-tender MS Back Back Atraumatic, Inspection NL, No midline vertebral tend, No paraspinal tenderness MS Lower Extrem Lower Ext/Pelvis/MS Atraumatic, Inspection NL, No swelling, Non-tender, No erythema Skin Skin Atraumatic, Color NL, No rash, Warm, Dry, Intact Neurologic Neurologic Oriented X3, Speech NL, No motor deficits, No sensory deficits Psychiatric Psychiatric Affect NL, Mood NL Re-Evaluation MDM Free Text MDM Notes Free Text MDM Notes This is a 64-year-old female that was transferred from [facility] for admission. Patient states she is not currently have chest pain but is complaining of shortness of breath which she has had since Sunday. She is in no no distress With normal vital signs. I informed her my plan is to admit her to the hospital for cardiac consultation. She is aware and amenable to the plan. She is not currently of a primary care physician. 1335-I spoke with Dr. Zarate who has agreed to admit the patient. ED Course Medication(s) Ordered Medication(s) Ordered: Electrolytic, Caloric, And Tracy Sig/Fly Start time Last Medication Dose Route Stop Time Status Admin Dextrose/Water 125 ML ASDIR PRN 08/28 1345 UNV IV 08/29 1237 Dextrose/Water 250 ML ASDIR PRN 08/28 1345 UNV IV 08/29 1237 Hormones And Synthetic Substit Sig/Fly Start time Last Medication Dose Route Stop Time Status Admin Glucagon 1 MG ASDIR PRN 08/28 134 UNV IM 08/29 1237 Differential Diagnosis )( Differential Diagnosis Acute coronary syndrome, Acute myocardial infarct, Chest pain, Chest pain, acute, Dysrhythmia, Pneumonia, Pulmonary embolism Patient Discharge Departure Vital Signs/Condition Vital Signs First Documented: Result Date Time Pulse Ox 95 08/28 1312 B/P 117/67 08/28 1312 B/P Mean 83 08/28 1312 O2 Delivery Room air 08/28 131 Temp 36.9 08/28 1312 Pulse 81 08/28 1312 Resp 16 08/28 1312 Last Documented: Result Date Time Pulse Ox 95 08/28 1312 B/P 117/67 08/28 1312 B/P Mean 83 08/28 1312 O2 Delivery Room air 08/28 131 Temp 36.9 08/28 1312 Pulse 81 08/28 1312 Resp 16 08/28 1312 All vital signs available at the time of this entry have been reviewed. Condition Stable Clinical Impression Clinical Impression Primary Impression: Chest pain Disposition Decision Hospitalize Hosp Physician Name Belen Zarate MD Hosp Physician Hospitalist Request Time 133 Request Date 08/28/24 )( Accepts Hospitalization Yes )( Reason for Hospitalization CP )( Accepted Time 1336 )( Accepted Date 08/28/24 Call Information will see patient, agrees with plan Fox Flores 09/09/242040: Past Medical History - Adult Home Medications Reported Medications metFORMIN (GLUCOPHAGE) 1,000 MG PO BID ASPIRIN EC (ECOTRIN) 81 MG PO DAILY ATORVASTATIN (LIPITOR) 40 MG PO BEDTIME METOPROLOL SUCC XL (TOPROL XL) 25 MG PO DAILY CLOPIDOGREL (PLAVIX) 75 MG PO DAILY Interpretation Diagnostics Lab Results Interpretation Results Laboratory Tests: 08/28 08/28 1356 1355 Chemistry POC Glucose (70 - 110 MG/DL) 320 H Troponin I High Sens (0 - 34 ng/L) 25 Patient Discharge Departure Discharge/Care Plan (Auto) Prescriptions Current Visit Scripts ISOSORBIDE MONONITRATE SR (IMDUR) 30 MG PO DAILY 30 Days #30 TAB Ref 2 Supervising Physician Note MidLv Saw Pt Alone I was available for consultation as needed during the patient's visit in the emergency department. at 1339 at 2043 [facility] #:[id number] END OF REPORT [facility] 2024-08-28 10:07:00 [facility] ([facility]) EMERGENCY PROVIDER REPORT REPORT#:[id number] REPORT STATUS: Signed DATE:08/28/24 TIME:1007 PATIENT: GARY REN UNIT #: [id number] ROOM/BED: : 58 AGE: 64 SEX: F PCP PHYS: Juju Weems SERVICE AUTHOR: Lm Bonilla DO REP SRV REP SRV TM: 1007 * ALL edits or amendments must be made on the electronic/computer document * HPI-Chest Pain 40 and Over Free Text HPI Notes Free Text HPI Notes 64-year-old female presents to the emergency department with chest pain. Left- sided, radiating to left arm. Currently, patient not having chest pain. Patient initially presented to [facility] emergency department, from where she was subsequently transferred to [facility] for ACS workup. Her cardiac enzymes were elevated, and she was told that she would undergo a cardiac catheterization. However, it kept getting delayed, and patient simply did not want to wait any longer, and signed herself out on Sunday. Her symptoms have not abated since then, and she presented here instead at the suggestion of her family members. No known history of coronary artery disease, MN, CABG, or stents. No history of DVT or PE, no active hemoptysis, no active malignancy, exogenous hormone use, long bone fractures, prolonged travel or immobilization. General Initial Greet Date/Time 08/28/24 1000 Presentation Chief Complaint Chest pain Sudden in Onset? No )( Migration/Movement None Risk-Chest Pain 40 and Over Risk Stratification )( Coronary Artery Disease Hypertension )( Thoracic Aortic Dissection No risk factors )( Pulmonary Embolism No risk factors )( AMI-Aspirin Aspirin Last 24 Hrs 81 mg )( HEART for MACE )( HEART for MACE Response Value History Low index of suspicion 0 ECG Interpretation Nonspec repol disturb 1 Age Age 65 or over 2 Risk Factors for CAD 1-2 CAD risk factors 1 Troponin < or = to NL troponin 0 Total 4 Past Medical History - Adult Stated Complaint CHEST PAIN YESTERDAY,SOB Allergies Coded Allergies: No Known Allergies (08/28/24) Home Medications Reported Medications ISOSORBIDE MONONITRATE SR (IMDUR) 30 MG PO DAILY ASPIRIN EC (ECOTRIN) 81 MG PO DAILY ATORVASTATIN (LIPITOR) 40 MG PO BEDTIME METOPROLOL SUCC XL (TOPROL XL) 25 MG PO DAILY metFORMIN 500 MG PO BID CLOPIDOGREL (PLAVIX) 75 MG PO DAILY Physical Exam Vital Signs Vital Signs First Documented: Result Date Time Pulse Ox 96 08/28 1001 B/P 124/69 08/28 1001 B/P Mean 87 08/28 1001 O2 Delivery Room air 08/28 100 Temp 36.9 08/28 100 Pulse 84 08/28 1001 Resp 16 08/28 100 Last Documented: Result Date Time Pulse Ox 96 08/28 1018 B/P 124/69 08/28 1001 B/P Mean 87 08/28 100 O2 Delivery Room air 08/28 100 Temp 36.9 08/28 100 Pulse 84 08/28 100 Resp 16 08/28 100 Review of Vital Signs Reviewed Focused PE General/Const General/Const Awake, Alert Eyes Eyes PERRL MS Neck Neck Supple, Full range of motion, No swelling, Non-tender, No masses, No JVD Resp/Chest Respiratory/Chest Breath sounds NL, Breath sounds = bilat, No respiratory distress, No rales, No rhonchi, No wheezing, No chest tenderness Cardiovascular Cardiovascular Heart rate NL, Regular rhythm, Heart sounds NL, No murmurs, Peripheral circulation NL, Pulses = bilaterally, No gross BP differential Abdomen/GI Abdomen/GI Soft, Non-tender, No guarding, No rebound MS Back Back Inspection NL, Non-tender, No CVA tenderness MS Lower Extrem Lower Ext/Pelvis/MS Inspection NL, No swelling, Non-tender, No erythema, No deformity, Neurologic intact, Vascular intact, No edema Skin Skin Color NL, Warm, Dry, Turgor NL Neurologic Neurologic Oriented X3, Speech NL, No motor deficits, No sensory deficits Psychiatric Psychiatric Affect NL, Mood NL, Thought content NL Interpretation Diagnostics Lab Results Interpretation Results Laboratory Tests 08/28/24 1028: [Embedded Image Not Available] Laboratory Tests: 08/28 1028 Chemistry Sodium (136 - 145 mmol/L) 137 Potassium (3.4 - 5.0 mmol/L) 4.6 Chloride (98 - 107 mmol/L) 98 Carbon Dioxide (21 - 32 mmol/L) 28 Anion Gap (4 - 15 GAP calc) 11 BUN (7 - 18 MG/DL) 28 H Creatinine (0.6 - 1.0 MG/DL) 0.9 Glomerular Filtr Rate (>60 estGFR) >=60 max estimate Glucose (70 - 110 MG/DL) 398 H Calcium (8.5 - 10.1 MG/DL) 8.8 Total Bilirubin (0.0 - 1.0 MG/DL) 0.4 Direct Bilirubin (0.0 - 0.3 MG/DL) 0.1 Indirect Bilirubin (0.2 - 1.2 MG/DL) 0.30 AST (15 - 37 Unit/L) 15 ALT (30 - 65 Unit/L) 39 Total Alk Phosphatase (50 - 136 Unit/L) 116 Total Creatine Kinase (21 - 215 Unit/L) 34 Troponin I High Sens (0 - 54 ng/L) 33.1 NT-Pro-B Natriuret Pep (0 - 100 PG/ML) 930 H Total Protein (6.4 - 8.2 G/DL) 6.7 Albumin (3.4 - 5.0 G/DL) 3.2 L Lipase (13 - 75 Unit/L) 63 Coagulation INR (0.8 - 1.2 INR Unit) 1.00 PTT ([place]) (26 - 35 SECONDS) 33.4 PT Patient/Control Mix (9.3 - 12.9 SECONDS) 11.0 D-Dimer (215 - 500 ng/mLFEU) 246 Hematology WBC (3.5 - 11.0 K/mm3) 9.7 RBC (4.70 - 6.10 M/mm3) 4.50 L Hgb (10.4 - 14.9 G/DL) 14.0 Hct (31.5 - 44.1 %) 41.1 MCV (84.5 - 98.6 Fl) 91.3 MCH (27.0 - 34.2 pg) 31.1 MCHC (31.5 - 34.0 G/DL) 34.1 H RDW (11.5 - 14.5 SD) 11.9 Plt Count (150 - 450 K/mm3) 222 MPV (7.0 - 10.5 fL) 10.80 H Recent Impressions: RADIOLOGY - XR CHEST 2 V 08/28 1046 Report Impression - Status: SIGNED Entered: 08/28/2024 1113 IMPRESSION: No active or acute process within the chest. Impression By: [email or web address] - Steve Romo M.D. Re-Evaluation MDM Free Text MDM Notes Free Text MDM Notes 64-year-old female presenting with chest pain with typical features, apparently elevated cardiac enzymes at the other facility that she had presented for. Will begin cardiac workup, twelve-lead EKG and troponin, obtain chest x-ray, D-dimer, CBC, CMP, and continue to monitor. Explained to patient that we do not have any beds here, and to admit for ACS workup, we will have to transfer, patient verbalized understanding. Additional Text Labs reviewed, D-dimer negative, troponin negative, EKG without emergent findings, chest x-ray unremarkable. Patient already aware we are at capacity and she will need to be transferred for ACS workup. Patient accepted at [facility] for transfer and admission ED Course Medication(s) Ordered Medication(s) Ordered: Central Nervous System Agents Sig/Fly Start time Last Medication Dose Route Stop Time Status Admin Aspirin 324 MG X1ED STA 08/28 1000 DC 08/28 PO 08/28 100 1105 Differential Diagnosis )( Differential Diagnosis Acute coronary syndrome, Acute myocardial infarct, Anxiety disorder, Chest pain, Dysrhythmia MDM-Independent Interpretation My ECG Interpretation Twelve-lead EKG, reviewed and interpreted by me, ED physician. Rate 84 bpm, normal sinus rhythm, QTc 470 ms, normal P axis, no STEMI My Plain Film Interpretation I independently reviewed and interpreted two-view chest x-ray, no acute process Patient Discharge Departure Vital Signs/Condition Vital Signs First Documented: Result Date Time Pulse Ox 96 08/28 1001 B/P 124/69 08/28 1001 B/P Mean 87 08/28 1001 O2 Delivery Room air 08/28 100 Temp 36.9 08/28 1001 Pulse 84 08/28 1001 Resp 16 08/28 1001 Last Documented: Result Date Time Pulse Ox 96 08/28 1018 B/P 124/69 08/28 1001 B/P Mean 87 08/28 1001 O2 Delivery Room air 08/28 100 Temp 36.9 08/28 1001 Pulse 84 08/28 1001 Resp 16 08/28 1001 All vital signs available at the time of this entry have been reviewed. Clinical Impression Clinical Impression Primary Impression: Chest pain, rule out acute myocardial infarction Disposition Decision Transfer )( Request Time 1125 )( Request Date 08/28/24 [facility] Transfer Accepted Yes Accepted by: Dr Sebastian )( Acceptance Time 112 )( Acceptance Date 08/28/24 Discharge/Care Plan Counseled Regarding Diagnosis, Lab results, Imaging studies, Need for transfer at 1139 [facility] #: [id number] END OF REPORT [facility] 2024-08-28 10:07:00 [id number] [facility] [address] [place] [address] PATIENT NAME: GARY REN ADMIT DATE: 08/28/24 ACCOUNT NO: [id number] ROOM NO: AGE: 64 REPORT TYPE: eELECTROCARDIOGRAM SEX: F ADMITTING PHYSICIAN: ATTENDING PHYSICIAN: Order: [id number] Test Reason : CP Test Date/Time Stamp: SunAug 28 2024 10:07:22 Blood Pressure : / mmHG Vent. Rate : 084 BPM Atrial Rate : 084 BPM P-R Int : 138 ms QRS Dur : 064 ms QT Int : 398 ms P-R-T Axes : 078 060 -42 degrees QTc Int : 470 ms Normal sinus rhythm T wave abnormality, consider inferolateral ischemia Prolonged QT Abnormal ECG No previous ECGs available Confirmed by Marii Fine ([id number]) on 09/02/2024 7:10:44 AM Referred By: Self Referred Confirmed by:Marii Fine at 0710 PATIENT NAME: GARY REN [facility] 2024-08-25 15:22:55 Problem: Falls, Risk of Goal: Absence of falls Outcome: See downtime documentation Problem: Bleeding, Risk of Goal: Absence of impaired coagulation signs and symptoms Outcome: See downtime documentation Goal: Absence of active bleeding Outcome: See downtime documentation Problem: Discharge Planning Goal: Adequate for discharge Outcome: See downtime documentation Goal: Adequate to move to next level of care Outcome: See downtime documentation Goal: Knowledge of medication management Outcome: See downtime documentation Problem: Cardiac Output - Decreased Goal: Absence of signs and symptoms of decreased cardiac output Outcome: See downtime documentation [facility] 2024-08-25 15:06:34 Patient wanted to leave AMA and refused Ativan. Dr. Bishop informed. Patient signed AMA, IV's removed. Prescriptions given by Dr. Bishop to patient. Patient Left at 1505 Sarah Aguilar RN [facility] 2024-08-25 13:55:00 Patient had tingling sensation in both upper and lower Left extremity and severe headache. Code Stroke activated at 1334 VS. Taken. Neuro check done. Patient evaluated by code team and taken for CT scan. [facility] 2024-08-25 09:50:44 TRANSITIONAL CARE MANAGEMENT ASSESSMENT 08/25/2024 Gary Ren [id number] Gary Ren is a 64 year old /White female was admitted on 08/22/[address] She was discharged on 08/22/24 with discharge disposition of HR- Routine Discharge. Admitting Physician: Victor Manuel Marquis Discharge Diagnosis: Left-sided chest pain, reproducible on exam C/f STEMI No linked episodes TCM [id number] outreach documentation: Discharge Assessment Chart Assessed: 08/25/24 TCM Outreach Completed: 08/25/24 Future Appointments: Shameka Montenegro RN [facility] 2024-08-25 00:00:00 Problem: Falls, Risk of Goal: Absence of falls Outcome: Progressing as expected Problem: Bleeding, Risk of Goal: Absence of impaired coagulation signs and symptoms Outcome: Progressing as expected Goal: Absence of active bleeding Outcome: Progressing as expected Problem: Discharge Planning Goal: Adequate for discharge Outcome: Progressing as expected Goal: Adequate to move to next level of care Outcome: Progressing as expected Goal: Knowledge of medication management Outcome: Progressing as expected Problem: Cardiac Output - Decreased Goal: Absence of signs and symptoms of decreased cardiac output Outcome: Progressing as expected Tyler Mckeon RN [facility] 2024-08-24 20:09:01 08/24/242001 Patient Observation Patient Observations Pt is becoming more agitated at this time. Made MD aware. All belongings given to due to pt being agitated. T Anat Reddy RN [facility] 2024-08-24 19:13:00 Md at bedside to evaluate patient. Made production shift supervisor RN aware as well [facility] 2024-08-24 19:10:00 Upon entering the room. The patient stated that she feels like harming herself and has attempted to in the past with pills. She stated that she sleeps with big knives and thinks about slitting her throat. She also stated that she wishes that she would never wake up. Made MD aware. [facility] 2024-08-24 11:15:26 Problem: Falls, Risk of Goal: Absence of falls Outcome: Progressing as expected Problem: Bleeding, Risk of Goal: Absence of impaired coagulation signs and symptoms Outcome: Progressing as expected Goal: Absence of active bleeding Outcome: Progressing as expected Problem: Discharge Planning Goal: Adequate for discharge Outcome: Progressing as expected Goal: Adequate to move to next level of care Outcome: Progressing as expected Goal: Knowledge of medication management Outcome: Progressing as expected Problem: Cardiac Output - Decreased Goal: Absence of signs and symptoms of decreased cardiac output Outcome: Progressing as expected T [facility] 2024-08-23 23:52:19 Problem: Falls, Risk of Goal: Absence of falls Outcome: Progressing as expected Problem: Bleeding, Risk of Goal: Absence of impaired coagulation signs and symptoms Outcome: Progressing as expected Goal: Absence of active bleeding Outcome: Progressing as expected Problem: Discharge Planning Goal: Adequate for discharge Outcome: Progressing as expected Goal: Adequate to move to next level of care Outcome: Progressing as expected Goal: Knowledge of medication management Outcome: Progressing as expected Problem: Cardiac Output - Decreased Goal: Absence of signs and symptoms of decreased cardiac output Outcome: Progressing as expected T [facility] 2024-08-23 18:48:26 Pt to 921 at this time via [facility] ED ERT on tele. Respirations even and unlabored, AAOx4, NAD noted. Patient accompanied by and on heparin drip. Ileana Thomas RN [facility] 2024-08-23 18:40:00 This RN called to patients bedside, patient reports wanting to leave because " you have done nothing for me." Patient reports pain, this RN informed patient that I was waiting for MD to place admission orders and then I was going to medicate patient. This RN advised patient to stay and be treated d/t having an NSTEMI. This RN informed patient that I was calling report to the floor and placing transport to floor. Patient continued to state that she wanted to leave. This RN informed patient that I could medicate her with norco, patient verbalized understanding. [facility] 2024-08-23 18:11:23 Patient report called to recnilamving TROY Dash on floor 921. Patient updated on plan of care and verbalizes understanding. Patients VSS, RR even and unlabored, and NAD noted. [facility] tele track requested, awaiting transport to floor. [facility] 2024-08-23 17:42:32 Attempted to call report, no answer. [facility] 2024-08-23 16:59:14 Patient provided with water per request. [facility] 2024-08-23 16:44:16 Gary Ren is a 64 year old female presents to the ED with c/o CP x months that increases with exertion. Reports pain to left side of chest with radiation to back and left arm, rates pain 10/10 and describes it as "shocking." Per patient she was seen in ED and was to be admitted for NSTEMI, patient signed out AMA. Per patient she was told that she needed to have a cardiac catheterization and now is back and wanting to be admitted. 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 Patient AAOx4, VSS, RR e/u, and NAD noted. PIV placed in lobby, labs collected, and EKG completed prior to arrival to room. [facility] 2024-08-23 16:40:45 Patient ambulatory to room from triage. [facility] 2024-08-23 15:37:20 Per bed placement pt was an admit to the cardiac floor last night and signed out the unit AMA, pt has now returned but must go through readmission process if deemed medically necessary Volodymyr Bills RN [facility] 2024-08-23 15:28:37 Gary Ren is a 64 year old female who presents to the ED ambulatory with complaints of CP pt reports she was supposed to be admitted yesterday pt went home now back still having CP AOx4. Respirations even and unlabored. Skin warm and dry. NAD noted. Patient to green chairs d/t ED saturation. Deep Abernathy RN [facility] 2024-08-23 12:11:03 CM made follow up call to patient post-discharge. No answer and call went to automated message saying that caller is not available. CM was unable to leave a voicemail or there was no option to leave a voicemail. [facility] 2024-08-22 19:11:10 Problem: Falls, Risk of Goal: Absence of falls 08/22/20241910 by Ekta Govea RN Outcome: Adequate for discharge 08/22/2024 1542 by Ekta Govea RN Outcome: Progressing as expected Problem: Discharge Planning Goal: Adequate for discharge 08/22/20241910 by Ekta Govea RN Outcome: Adequate for discharge 08/22/2024 1542 by Ekta Govea RN Outcome: Progressing as expected Goal: Adequate to move to next level of care 08/22/20241910 by Ekta Govea RN Outcome: Adequate for discharge 08/22/2024 1542 by Ekta Govea RN Outcome: Progressing as expected Goal: Knowledge of medication management 08/22/20241910 by Ekta Govea RN Outcome: Adequate for discharge 08/22/2024 1542 by Ekta Govea RN Outcome: Progressing as expected Problem: Cardiac Output - Decreased Goal: Absence of signs and symptoms of decreased cardiac output 08/22/20241910 by Ekta Govea RN Outcome: Adequate for discharge 08/22/2024 1542 by Ekta Govea RN Outcome: Progressing as expected Problem: Pain Goal: Control of pain at or below patient's documented comfort goal 08/22/20241910 by Ekta Govea RN Outcome: Adequate for discharge 08/22/2024 1542 by Ekta Govea RN Outcome: Progressing as expected Goal: Reduction in pain sensation 08/22/20241910 by Ekta Govea RN Outcome: Adequate for discharge 08/22/2024 1542 by Ekta Govea RN Outcome: Progressing as expected Problem: Skin integrity Impaired (Risk or Actual) Goal: Prevention of new skin breakdown 08/22/20241910 by Ekta Govea RN Outcome: Adequate for discharge 08/22/2024 1542 by kEta Govea RN Outcome: Progressing as expected Problem: Tissue Perfusion, Cardiopulmonary - Altered Goal: Circulatory function within specified parameters 08/22/20241910 by Ekta Govea RN Outcome: Adequate for discharge 08/22/2024 1542 by Ekta Govea RN Outcome: Progressing as expected Aram [facility] 2024-08-22 19:01:04 Patient requesting to leave Against Medical Advice. States she does not want to remain in the hospital until Sunday. On-Call physician notified and educated patient on need to continue heparin drip and remain in hospital for chest pain work up. Despite multiple conversations by multiple physicians, Patient decided to leave. AMA form signed and patient left hospital. Govea RN [facility] 2024-08-22 15:42:44 Problem: Falls, Risk of Goal: Absence of falls Outcome: Progressing as expected Problem: Discharge Planning Goal: Adequate for discharge Outcome: Progressing as expected Goal: Adequate to move to next level of care Outcome: Progressing as expected Goal: Knowledge of medication management Outcome: Progressing as expected Problem: Cardiac Output - Decreased Goal: Absence of signs and symptoms of decreased cardiac output Outcome: Progressing as expected Problem: Pain Goal: Control of pain at or below patient's documented comfort goal Outcome: Progressing as expected Goal: Reduction in pain sensation Outcome: Progressing as expected Problem: Skin integrity Impaired (Risk or Actual) Goal: Prevention of new skin breakdown Outcome: Progressing as expected Problem: Tissue Perfusion, Cardiopulmonary - Altered Goal: Circulatory function within specified parameters Outcome: Progressing as expected [facility] 2024-08-22 07:06:38 Nurse to Nurse handoff report given to Anat SIMMONS for 2217. Pt stable and ready for transfer [facility] 2024-08-22 03:47:14 NURSE REPORT Report given to TROY Winter. Chief complaint, assessment finding and orders reviewed. Plan of care discussed with patient and both nurses. Patient/family members verbalized understanding. Sweetie Cox RN [facility] Sweetie Cox RN [facility] 2024-08-22 03:18:13 Pt provided with warm blanket and socks per request. Remains on diagnostic cardiac sonographer, intermittent BP readings, continuous pulse oximetry. [facility] 2024-08-22 03:05:02 EKG performed at bedside during triage [facility] 2024-08-22 02:58:49 Pt presents to ED with c/o neck pain x 2 wks. Pt feels like her pillows are causing her to have neck pain. She feels a popping sensation in her neck when she moves and states her left arm goes numb occasionally. Pt also reports chest pain for the past couple of hours and states she is a diabetic. Pt rates CP 5/10 ache and swollen sensation. Pt rates neck pain 9-10/10. No medications taken. Sinai Pereira RN [facility] 2024-05-04 16:01:24 Pt given printed and verbal discharge instructions regarding acute back pain with sciatica right and other insomnia, encouraged hydration, 2 Prescriptions sent. Pt verbalized understanding of instructions, pt awake alert oriented, resp reg unlabored, skin w/d, color appropriate for race, moves all ext well,pt encouraged to follow up with pcp. Advised to seek medical attention for new/prolonged/worsening of symptoms, Symptoms improved. Awake, alert oriented, resp reg unlabored, skin w/d, pt leaving amb with steady gait, in no apparent distress, [facility] 2024-05-04 15:11:36 Patient arrived ambulatory c/o shooting pain of right hip down her leg for the past 2 weeks. [facility]. Denies any injury. Anahi Lucia RN [facility] 2024-04-28 12:34:26 Radiation Dose CTDIV OL = 0 (mGy): DLP = 406.1 (mGy-cm) PROCEDURE INFORMATION: Exam: CT Abdomen And Pelvis With Contrast Exam date and time: 04/28/2024 12:39 PM Age: 64 years old Clinical indication: /abd pain, generalized, constipation TECHNIQUE: Imaging protocol: Computed tomography of the abdomen and pelvis with contrast. Radiation optimization: All CT scans at this facility use at least one of these dose optimization techniques: automated exposure control; mA and/or kV adjustment per patient size (includes targeted exams where dose is matched to clinical indication); or iterative reconstruction. Contrast material: [id number]; Contrast volume: 65 ml; Contrast route: INTRAVENOUS (IV); COMPARISON: No relevant prior studies available. RADIATION DOSE METRICS: Total DLP (mGy-cm): 406.1 FINDINGS: Lungs: There is mild atelectasis at the right lung base. Coronary arteries: Coronary artery calcifications are noted. Liver: Normal. No mass. Gallbladder and biliary ducts: Normal. No calcified stones. No ductal dilation. Pancreas: Normal. No ductal dilation. Spleen: Normal. No splenomegaly. Adrenal glands: Normal. No mass. Kidneys and ureters: Normal. No hydronephrosis. Stomach and bowel: Bowel loops are normal in caliber. There is no wall thickening. Multiple colonic diverticuli are noted without evidence of acute diverticulitis. Appendix: No evidence of appendicitis. Intraperitoneal space: Unremarkable. No free air. No significant fluid collection. Vasculature: Calcifications of the aortic and mitral valves are noted. Lymph nodes: Unremarkable. No enlarged lymph nodes. Urinary bladder: Unremarkable as visualized. Reproductive: Unremarkable as visualized. Bones/joints: Unremarkable. No acute fracture. Soft tissues: Unremarkable. IMPRESSION: 1. No acute or suspicious abnormalities of the abdomen/pelvis. 2. Uncomplicated left colonic diverticulosis. Mya Saldivar MD On 04/28/2024 13:01:11; [id number] [facility] 2024-04-26 11:09:56 Pt discharged, instructions given, verbalized understanding, No questions or concerns at this time. Camilo Galvez RN [facility] 2024-04-26 08:20:45 Gary Ren is a 64 year old female ambulatory to triage with steady gait with c/o lower back pain, pain to RT hip and RT thigh x 3 days that she woke up with. Denies injury/trauma, dysuria, previous back surgeries. Denies loss of control of bowel or bladder. Margarita Randall RN [facility] 2024-01-14 12:59:31 Dr Lee at bedside evaluating patient, Pt placed on diagnostic cardiac sonographer, family at bedside Yarely Schmidt RN [facility] 2024-01-14 12:44:29 Chest pain that started 3 days ago starts in left back to mid chest , patient is DM , patient chest pain 08/14/ patient is non complaints with Dm medication. No meds taken today. Patient is a.o x4 patient is restless and fidgity EKG performed in triage H/P. History and physical . Last albuterol was taken today hx of copd no oxygen at home ... Smoker. NON COMPLAINT AT ALL patient need education and proper resources Adrian Ren RN [facility] 2024-01-14 12:37:00 Associated Order(s): EKG-12 Lead ROUTINE ONCE Pre-Procedure Diagnose(s): Chest pain, unspecified type Post-Procedure Diagnose(s): Chest pain, unspecified type [facility] Emergency Department Note Patient Name: Gary Ren Date of : 1960 63 year old female Treatment Room: [place] [address] Primary Care Physician: PATIENT DOES NOT HAVE A PCP Patient Escorted by: Family [5] Mode of Arrival: Personal means [1] EMS Treatment Prior to ED Arrival: CT SCAN TECHNICIAN treatment: None Travel and Exposure Screening: Symptoms Does patient have any of these symptoms?: (not recorded) Exposure Screening Has patient had contact with someone with a communicable disease in the last month?: (not recorded) Diseases exposed to:: (not recorded) Is Patient ?: (not recorded) Exposure Date: (not recorded) Chief Complaint: No chief complaint on file. History of Present Illness: 63 yo F presents for having concern of some chest pain that started on the left side. Pt with hx of smoking and diabetes. Pt states started about a week ago and then got worse last night. Pt has had in the past but has not had stents in the past. History provided by: Patient retina subspecialist used: No Chest Pain Pain location: L chest Pain quality: sharp Pain severity: Moderate Onset quality: Gradual Duration: 1 week Timing: Constant Progression: Worsening Relieved by: Nothing Worsened by: Deep breathing Associated symptoms: shortness of breath Associated symptoms: no abdominal pain, no back pain, no cough, no dizziness, no fever, no headache, no nausea, no palpitations, no vomiting and no weakness Past Medical History/Immunizations: Past Medical History: Diagnosis Date Diabetes Tetanus received in last 5 years: Unknown Childhood immunizations: Up-to-date Allergies: No Known Allergies Past Social History: Tobacco Use Every Day; Types: Cigarettes Smokeless Tobacco: Never used smokeless tobacco. Alcohol Use No. Past Surgical History: History reviewed. No pertinent surgical history. Review of Systems: Review of Systems Constitutional: Negative for chills and fever. HENT: Negative for rhinorrhea and sore throat. Eyes: Negative for pain and discharge. Respiratory: Positive for shortness of breath. Negative for cough. Cardiovascular: Positive for chest pain. Negative for palpitations. Gastrointestinal: Negative for abdominal pain, diarrhea, nausea and vomiting. Genitourinary: Negative for dysuria and hematuria. Musculoskeletal: Negative for back pain and neck pain. Skin: Negative for rash. Neurological: Negative for dizziness, weakness and headaches. Psychiatric/Behavioral: Negative for agitation and confusion. Physical Exam: ED Triage Vitals [01/14/24 1246] Weight 77.1 kg (170 lb) Actual or estimated Height 1.651 m (5' 5") BP (!) 145/90 Pulse 87 Resp 18 Temp 37 ?C (98.6 ?F) Temp src SpO2 99 % Measured on Physical Exam Vitals and nursing note reviewed. Constitutional: Appearance: Normal appearance. HENT: Head: Normocephalic. Mouth/Throat: Mouth: Mucous membranes are moist. Eyes: Extraocular Movements: Extraocular movements intact. Cardiovascular: Rate and Rhythm: Normal rate and regular rhythm. Pulmonary: Effort: Pulmonary effort is normal. No respiratory distress. Breath sounds: No wheezing. Abdominal: General: There is no distension. Palpations: Abdomen is soft. Tenderness: There is no abdominal tenderness. There is no guarding. Musculoskeletal: General: No swelling. Skin: General: Skin is warm and dry. Neurological: Mental Status: She is alert. Mental status is at baseline. Psychiatric: Mood and Affect: Mood normal. Behavior: Behavior normal. Radiology: XR CHEST 1 VW Final Result CHEST ONE VIEW HISTORY: Chest pain TECHNIQUE: AP view of the chest is obtained. COMPARISON: 07/05/2022 FINDINGS: Lungs are clear. Heart size and mediastinal silhouette are normal. No pleural effusion or pneumothorax is seen. CONCLUSIONS: No acute cardiopulmonary disease. Lab Results: Lab Results CBC WITH DIFF - Abnormal Result Value Ref Range WBC 12.84 (*) 4.30 - 11.10 10*3/?L RBC 4.95 3.93 - 5.25 10*6/?L HGB 15.6 (*) 11.6 - 15.0 g/dL HCT 44.1 35.7 - 45.2 % MCV 89.1 80.6 - 95.5 fL MCH 31.5 25.9 - 32.8 pg MCHC 35.4 (*) 31.6 - 35.1 g/dL RDW-SD 40.5 39.0 - 49.9 fL RDW-CV 12.4 12.0 - 15.5 % PLT 244 166 - 358 10*3/?L MPV 10.8 9.5 - 12.9 fL NRBC/100 WBC 0.0 0.0 - 10.0 /100 WBCs NRBC x10 3 <0.01 10*3/?L SEG % 60 33 - 76 % LYMPH % 33 14 - 54 % MONO % 6 (*) 0 - 4 % EOS % 1 0 - 3 % ANC 7.70 (*) 1.88 - 7.09 10*3/uL COMP. METABOLIC PANEL (78446) - Abnormal NA 129 (*) 135 - 145 mmol/L K 4.1 3.5 - 5.0 mmol/L CL 92 (*) 98 - 108 mmol/L CO2 TOTAL 27 23 - 31 mmol/L AGAP 10 2 - 16 BUN 28 (*) 7 - 23 mg/dL GLUCOSE 593 (*) 70 - 110 mg/dL CREATININE 0.63 0.50 - 1.04 mg/dL TOTAL BILI 0.5 0.1 - 1.1 mg/dL CALCIUM 9.1 8.6 - 10.6 mg/dL T PROTEIN 7.6 6.3 - 8.2 g/dL ALBUMIN 4.4 3.5 - 5.0 g/dL ALK PHOS 142 (*) 34 - 122 U/L ALTv 30 5 - 35 U/L AST(SGOT) 27 13 - 40 U/L eGFR 98.6 mL/min/1.73m2 D-DIMER - Abnormal D-DIMER 0.56 (*) <0.50 ?g/mL (FEU) POCT GLUCOSE (AUTOMATED) - Abnormal POCT GLU 402 (*) 70 - 110 mg/dL ACTIVATED PARTIAL THRMPLAS NOE - Normal APTT Patient 29 26 - 36 Seconds PROTHROMBIN TIME / INR - Normal PROTIME PATIENT 10.7 10.1 - 12.6 Seconds INR 0.9 TROPONIN I - Normal TROPONIN I 0.003 <=0.034 ng/mL N-TERMINAL PRO-BNP - Normal NT-proBNP 40 <=125 pg/mL TROPONIN I - Normal TROPONIN I 0.003 <=0.034 ng/mL EKG: If EKG completed, see Procedure Note. Orders and Treatments: Orders Placed This Encounter Procedures XR CHEST 1 VW CBC WITH DIFF ACTIVATED PARTIAL THRMPLAS NOE PROTHROMBIN TIME / INR COMP. METABOLIC PANEL (97058) TROPONIN I N-TERMINAL PRO-BNP D-DIMER TROPONIN I POCT GLUCOSE (AUTOMATED) Consult/Referral Cardiology Orders Placed This Encounter Medications aspirin tablet 325 mg morpHINE (4 mg/mL) injection 4 mg ondansetron (ZOFRAN (PF)) injection 4 mg ipratropium-albuteroL (DUONEB) 0.5 mg-3 mg(2.5 mg base)/3 mL nebulizer solution 3 mL NaCl 0.9% (NS) bolus infusion 1,000 mL KCL (KLOR-CON M20) tablet 40 mEq insulin regular human (HUMULIN R) injection 5 Units metFORMIN 1,000 mg tablet First Provider Eval: ED Events Date/Time Event User Comments 01/14/24 1254 Medical Screening Begins WALDEMAR LEE MD, I. -- 01/14/24 1254 First Provider Evaluation WALDEMAR LEE MD, I. -- ED COURSE ED Course as of 01/14/24 1539 SunJan 14, 2024 1539 Spoke with pt with sugar better and feeling better, will discharge to f/u with cardiology and return for any worsening symptoms of concern. [YH] 1513 POCT GLU(!): 402 Blood sugar coming down. [YH] 1328 GLUCOSE(!!): 593 [YH] 1324 Glucose 593 [MG] 1322 D DIMER(!): 0.56 Age adjusted nml dimer. [YH] ED Course User Index [MG] Aby Miles PA [YH] Waldemar Lee MD Diagnosis/Impression as of 01/14/24 1539 Chest pain, unspecified type Hyperglycemia Procedures: EKG-12 Lead ROUTINE ONCE Date/Time: 01/14/2024 1:02 PM Performed by: Waldemar Lee MD Authorized by: Waldemar Lee MD ECG interpreted by ED Physician in the absence of a nuclear control room operator: yes Rate: ECG rate: 90 ECG rate assessment: normal Rhythm: Rhythm: sinus rhythm QRS: QRS axis: Normal QRS intervals: Normal QRS conduction: normal ST segments: ST segments: Non-specific T waves: T waves: non-specific MDM: Medical Decision Making The differential diagnosis includes but not limited to CAD, PE, PTX, PNA, Aortic Dissection, Esophageal rupture, pericarditis, myocarditis, chest wall pain/costochondritis, pleurisy, Gastritis/GERD, PUD, pancreatitis. DDX includes causes considered but not specified given they were low prob or unlikely to cause immediate or disability. Workup for unlisted, unlikely, or benign causes would likely have yielded harm exceeding benefit. Amount and/or Complexity of Data Reviewed Labs: ordered. Decision-making details documented in ED Course. Radiology: ordered. ECG/medicine tests: ordered and independent interpretation performed. Decision-making details documented in ED Course. Risk OTC drugs. Prescription drug management. Parenteral controlled substances. Flowsheet Documentation: Scoring Tools: No data recorded HEART Score: 3 Disposition/Condition: ED Disposition ED Disposition Disch - Home Condition Stable Comment -- Discharge Medications: Patient's Medications START taking these medications METFORMIN 1,000 MG TABLET Take 1 tablet by mouth in the morning and 1 tablet in the evening. Take with meals. Do all this for 30 days. CONTINUE taking these medications which have NOT CHANGED No medications on file START taking Modified Medications as Prescribed No medications on file STOP taking these medications No medications on file Follow-up: Contact information for follow-up Agus Goldsmith MD Specialty: IM-CARDIOVASCULAR DISEASE Agus Cardiology MD PAGE/ [address] [address] Electronically signed by: Waldemar Lee MD 01/14/24 1539 [facility]
--- NOTE | 2025-03-24 13:19 | EDPHYS ---
Physician Documentation [facility] Name: Melody Brown Age: 65 yrs Sex: Female : 1960 Arrival Date: 03/24/2025 Time: 12:24 Bed 13 Private MD: ED Physician Josse Ortiz HPI: 03/24 13:09 This 65 yrs old Female presents to ER via Ambulatory with complaints of Leg sp3 Pain - right. 13:09 65-year-old female with history of diabetes, hypertension, COPD now presents with sp3 recurrent right radicular pain. Patient had full workup at [facility] which demonstrated no significant findings. She was referred to outpatient MRI which she has not achieved yet. She is saying she is almost out of her tramadol. She denies any saddle anesthesia, loss of bowel or bladder control, swelling, prolonged immobilization, travel history, prior DVT or PE, or any other signs or symptoms on ROS at this time.. Historical: - Allergies: 12:44 No Known Allergies; kj2 - PMHx: 12:44 Diabetes mellitus; Hypertensive disorder; COPD; high choleserol; kj2 - Immunization history:: Adult Immunizations unknown. - Infectious Disease History:: Denies. - Social history:: Smoking status: . ROS: 13:13 Constitutional: Negative for fever, chills, and weight loss, Eyes: Negative for injury, sp3 pain, redness, and discharge, Neck: Negative for injury, pain, and swelling, Cardiovascular: Negative for chest pain, palpitations, and edema, Respiratory: Negative for shortness of breath, cough, wheezing, and pleuritic chest pain, Abdomen/GI: Negative for abdominal pain, nausea, vomiting, diarrhea, and constipation, Back: Negative for injury and pain, Skin: Negative for injury, rash, and discoloration, Neuro: Negative for headache, weakness, numbness, tingling, and seizure, Psych: Negative for depression, anxiety, suicide ideation, homicidal ideation, and hallucinations, Allergy/Immunology: Negative for hives, rash, and allergies, Endocrine: Negative for neck swelling, polydipsia, polyuria, polyphagia, and marked weight changes, 13:13 All other systems are negative, Exam: 13:13 Constitutional: This is a well developed, well nourished patient who is awake, alert, sp3 and in no acute distress. Head/Face: Normocephalic, atraumatic. Eyes: Pupils equal round and reactive to light, extra-ocular motions intact. Lids and lashes normal. Conjunctiva and sclera are non-icteric and not injected. Cornea within normal limits. Periorbital areas with no swelling, redness, or edema. Neck: Trachea midline, no thyromegaly or masses palpated, and no cervical lymphadenopathy. Supple, full range of motion without nuchal rigidity, or vertebral point tenderness. No Meningismus. Chest/axilla: Normal chest wall appearance and motion. Nontender with no deformity. No lesions are appreciated. Cardiovascular: Regular rate and rhythm with a normal S1 and S2. No gallops, murmurs, or rubs. Normal PMI, no JVD. No pulse deficits. Respiratory: Lungs have equal breath sounds bilaterally, clear to auscultation and percussion. No rales, rhonchi or wheezes noted. No increased work of breathing, no retractions or nasal flaring. Abdomen/GI: Soft, non-tender, with normal bowel sounds. No distension or tympany. No guarding or rebound. No evidence of tenderness throughout. Back: No spinal tenderness. No costovertebral tenderness. Full range of motion. Skin: Warm, dry with normal turgor. Normal color with no rashes, no lesions, and no evidence of cellulitis. Neuro: Awake and alert, GCS 15, oriented to person, place, time, and situation. Cranial nerves II-XII grossly intact. Motor strength 5/5 in all extremities. Sensory grossly intact. Cerebellar exam normal. Normal gait. Psych: Awake, alert, with orientation to person, place and time. Behavior, mood, and affect are within normal limits. 13:13 Musculoskeletal/extremity: Pain on straight leg raise on the right at 30 degrees. No circumferential swelling, no calf pain, and distal neurovascular exam is normal.. Vital Signs: 12:43 BP 155 / 85; Pulse 94; Resp 18; Pulse Ox 95% on R/A; Weight 66.68 kg; Height 5 ft. 5 kj2 in. ; 13:25 BP 150 / 82; Pulse 90; Resp 20; Temp 98.2; Pulse Ox 100% on R/A; kj2 12:43 Body Mass Index 24.46 (66.68 kg, 165.1 cm) kj2 MDM: 12:37 Medical Screening Exam initiated sp3 13:16 Data reviewed: vital signs, nurses notes, old medical records. ED course: 65-year-old sp3 female with right sided radicular pain. No pain in the abdomen or back. Not suspicious of AAA. Vital signs are normal. Patient already had negative workup at [facility] and was told to get outpatient MRI done. Will refer out to orthopedics and patient also asking for outpatient cardiology for continued management of her high blood pressure. Will refill tramadol as well.. Administered Medications: No medications were administered Disposition Summary: 03/24/25 13:18 Discharge Ordered Notes: Location: Home sp3 Condition: Stable sp3 Diagnosis - Right lower extremity radiculopathy sp3 Followup: sp3 - With: Mark Aguilar MD - When: Upon discharge from the Emergency Department - Reason: Recheck today's complaints Discharge Instructions: - Discharge Summary Sheet sp3 - Lumbosacral Radiculopathy sp3 Forms: - Medication Reconciliation Form sp3 - Antibiotic Education sp3 - Prescription Opioid Use sp3 - Patient Portal Instructions sp3 - Leadership Thank You Letter sp3 Prescriptions: - Diclofenac Sodium 75 mg Oral Tablet Sustained Release - take 1 tablet ORAL route 2 times per day; 30 tablet; Refills: 0, Product sp3 Selection Permitted - Tramadol 50 mg Oral Tablet - take 1 tablet ORAL route every 8 hours as needed; 12 tablet; Refills: 0, sp3 Product Selection Permitted Signatures: Josse Ortiz MD MD sp3 Yun Jones, RN RN kj2
--- NOTE | 2025-03-24 13:19 | ER ---
Nurse's Notes [facility] Name: Melody Brown Age: 65 yrs Sex: Female : 1960 Arrival Date: 03/24/2025 Time: 12:24 Bed 13 Private MD: Diagnosis: Right lower extremity radiculopathy Presentation: 03/24 12:43 Chief complaint: Patient states: R leg pain x 2 weeks. Seen at [facility] 1 week ago for same kj2 complaint and was told that she has arthritis in her back. Coronavirus screen: Client denies travel out of the [place] in the last 14 days. Ebola Screen: Patient denies exposure to infectious person. Patient denies travel to an Ebola-affected area in the 21 days before illness onset. Initial Sepsis Screen: Does the patient meet any 2 criteria? No. Patient's initial sepsis screen is negative. Does the patient have a suspected source of infection? No. Patient's initial sepsis screen is negative. Risk Assessment: Do you want to hurt yourself or someone else? Patient reports no desire to harm self or others. Onset of symptoms was March 10, 2025. 12:43 Method Of Arrival: Ambulatory kj2 12:43 Acuity: SERJIO 3 kj2 Historical: - Allergies: 12:44 No Known Allergies; kj2 - PMHx: 12:44 Diabetes mellitus; Hypertensive disorder; COPD; high choleserol; kj2 - Immunization history:: Adult Immunizations unknown. - Infectious Disease History:: Denies. - Social history:: Smoking status: . Screenin:26 [facility] ED Fall Risk Assessment (Adult) History of falling in the last 3 months, kj2 including since admission No falls in past 3 months (0 pts) Confusion or Disorientation No (0 pts) Intoxicated or Sedated No (0 pts) Impaired Gait No (0 pts) Mobility Assist Device Used No (0 pt) Altered Elimination No (0 pt) Score/Fall Risk Level 0 - 2 = Low Risk Maintained a safe environment, Hourly rounding (assess needs \T\ fall precautionary measures) done. Abuse screen: Denies threats or abuse. Denies injuries from another. Nutritional screening: No deficits noted. Tuberculosis screening: No symptoms or risk factors identified. Assessment: 13:00 General: Appears in no apparent distress. uncomfortable, Behavior is cooperative. Pain: kj2 Complains of pain in right leg Pain currently is 6 out of 10 on a pain scale. Neuro: Level of Consciousness is awake, alert, obeys commands, Oriented to person, place, time, situation. Cardiovascular: Patient's skin is warm and dry. Respiratory: Airway is patent Respiratory effort is unlabored. GI: No signs and/or symptoms were reported involving the gastrointestinal system. : No signs and/or symptoms were reported regarding the genitourinary system. 13:25 Reassessment: Patient appears in no apparent distress at this time. Patient and/or kj2 family updated on plan of care and expected duration. Pain level reassessed. Patient is alert, oriented x 3, equal unlabored respirations, skin warm/dry/pink. Vital Signs: 12:43 BP 155 / 85; Pulse 94; Resp 18; Pulse Ox 95% on R/A; Weight 66.68 kg; Height 5 ft. 5 kj2 in. ; 13:25 BP 150 / 82; Pulse 90; Resp 20; Temp 98.2; Pulse Ox 100% on R/A; kj2 12:43 Body Mass Index 24.46 (66.68 kg, 165.1 cm) kj2 ED Course: 12:28 Patient arrived in ED. im 12:33 Josse Ortiz MD is Attending Physician. sp3 12:44 Triage completed. kj2 12:44 Arm band placed on right wrist. kj2 13:00 Patient has correct armband on for positive identification. Provided Education on: call kj2 light. 13:17 Mark Aguilar MD is Referral Physician. sp3 13:20 Yun Jones RN is Primary Nurse. kj2 13:27 No provider procedures requiring assistance completed. Patient did not have IV access kj2 during this emergency room visit. Administered Medications: No medications were administered Medication: 13:26 VIS not applicable for this client. kj2 Outcome: 13:18 Discharge ordered by . sp3 13:27 Discharged to home ambulatory, kj2 13:27 Condition: stable 13:27 Discharge instructions given to patient, Instructed on discharge instructions, follow up and referral plans. Demonstrated understanding of instructions, follow-up care, 13:36 Patient left the ED. kj2 Signatures: Josse Ortiz MD MD sp3 Meghna Young im Robert, Yun, RN RN kj2
[2025-03-24 13:46] VITALS: BP 150/82; TEMP 98.2; O2SAT 100
== END 2025-03-24 13:36 | disposition home or self-care (01) ==
LOC: ER 12:24
DX: M54.16 Radiculopathy, lumbar region (principal)
CPT/HCPCS: 99282